=== PATIENT | male | born 1960 | race Caucasian/White ===

== ENCOUNTER 2017-01-22 14:22 | Inpatient (IN) | payer SELFPAY ==
[~2017-01-22] VITALS: Ht 182.9 cm; Wt 113.7 kg
[2017-01-22] VITALS (12 sets, daily range): BP systolic 93–157; BP diastolic 55–95; PULSE 77–162; RESP 16–22; TEMP 97.9–98.4; O2SAT 93–96
[~2017-01-22 14:22] MED LIST: ALBU0.086 INH; ATOR20TA42 PO; BENA25TA8 PO; CARD240C6 PO; CEPH500C3 PO; CHLO25 PO; CHLO25CA PO; DUONI INH; GEMF600T PO; GLYB1TAB51 PO; GUAI600 PO; Hydrochlorothiazide PO; LISI10 PO; LISI20 PO; MEDR4PAK3 PO; METF500 PO; PROT40TA PO; RANI150 PO; THIA100T PO; VENTAER INH
[2017-01-22] MEDS ORDERED: SODIUM CHLOR 0.9% 1000 ML INJ 1,000 ML IV SCH (14:34)
[2017-01-22] MEDS ORDERED: SODIUM CHLORIDE 0.9% FLUSH 10 ML FLUSH IVF PRN (14:45)
[2017-01-22] MEDS ORDERED: DILTIAZEM HCL 25 MG/5 ML VIAL IV PUSH ONE ×2 (14:45→16:00)
[2017-01-22] MEDS ORDERED: ASPIRIN 81 MG CHEW TAB PO ONE (14:45)
[2017-01-22 14:48] LABS: AUTOMATED NEUTROPHIL # 2.5 TH/MM3 (1.8-7.7); BASOPHIL % 0.9 % (0.0-2.0); EOSINOPHIL # 0.1 TH/MM3 (0-0.4); EOSINOPHIL % 1.7 % (0.0-4.0); HEMATOCRIT 49.6 % (39.0-51.0); HEMO FLAGS DIFF FINAL; LYMPH % 40.9 % (9.0-44.0); LYMPHOCYTE # 2.1 TH/MM3 (1.0-4.8); MEAN CORPUSCULAR HEMOGLOBIN 31.2 PG (27.0-34.0); MEAN CORPUSCULAR HGB CONC 35.1 % (32.0-36.0); MONO % 7.7 % (0.0-8.0); NEUT % 48.8 % (16.0-70.0); PLATELET COUNT 126 TH/MM3 (150-450); RED BLOOD COUNT 5.57 MIL/MM3 (4.50-5.90); RED CELL DISTRIBUTION WIDTH 15.5 % (11.6-17.2); WHITE BLOOD COUNT 5.2 TH/MM3 (4.0-11.0)
--- NOTE | 2017-01-22 14:48 | PD ---
HPI Chief Complaint: Chest Pain Time Seen by Provider: 14:38 Travel History International Travel<30 days: No Contact w/Intl Traveler<30days: No Traveled to known affect area: No History of Present Illness HPI This is a 56-year-old male with history of COPD, diabetes, hypertension, sleep apnea, alcohol abuse, tobacco use, admitted in 2013 with new onset A. fib which was felt to be secondary to heavy alcohol use. He presents via EMS for evaluation. For the past week he has had intermittent substernal chest pain which she describes as a squeezing sensation with no obvious aggravating or alleviating factors. He endorses a cough with yellow sputum production, palpitations. EMS reports heart rhythm of atrial fibrillation with a rate between 130 and 160. He endorses heavy alcohol use on a daily basis, approximately 8 beers daily, 8 beers today. The patient has been noncompliant with all of his previously prescribed medications and has not used any prescribed medication in over a year. He does not currently have a primary care physician. In addition the patient is having some epigastric discomfort and chills. He denies any dyspnea, calf swelling, recent travel. He has no other complaints at this time. PFSH Past Medical History Hx Anticoagulant Therapy: No Arthritis: No Asthma: No Atrial Fibrillation: Yes (PER EMR) Autoimmune Disease: No Blood Disorders: No Anxiety: No Depression: No Heart Rhythm Problems: Yes Cancer: No Cardiovascular Problems: Yes High Cholesterol: No Chemotherapy: No Chest Pain: No Congestive Heart Failure: No COPD: Yes Cerebrovascular Accident: No Diabetes: Yes Patient Takes Glucophage: No Diminished Hearing: No Endocrine: No Gastrointestinal Disorders: Yes GERD: No Glaucoma: No Genitourinary: No Headaches: No Hepatitis: No Hiatal Hernia: No Hypertension: Yes Immune Disorder: No Kidney Stones: No Musculoskeletal: No Neurologic: No Psychiatric: No Reproductive: No Respiratory: Yes (COPD) Immunizations Current: Yes Migraines: No Myocardial Infarction: No Radiation Therapy: No Renal Failure: No Seizures: No Sickle Cell Disease: No Sleep Apnea: Yes (uses CPAP at night) Thyroid Disease: No Ulcer: No Tetanus Vaccination: < 5 Years Influenza Vaccination: No Past Surgical History Abdominal Surgery: Yes (UMBILICAL HERNIA) AICD: No Appendectomy: Yes Arteriovenous Shunt: No Cardiac Surgery: No Cholecystectomy: No Ear Surgery: No Endocrine Surgery: No Eye Surgery: No Genitourinary Surgery: No Hysterectomy: No Insulin Pump: No Joint Replacement: No Oral Surgery: No Pacemaker: No Thoracic Surgery: No Other Surgery: Yes (REPAIR SPLEEN) Social History Alcohol Use: No (12+ BEERS DAILY X 38 YEARS ) Tobacco Use: Yes (1PPD CIGARETTES SINCE AGE OF 13) Substance Use: No Allergies-Medications (Allergen,Severity, Reaction): Coded Allergies: No Known Allergies (Verified , 01/22/17) Reported Meds & Prescriptions Reported Meds & Active Scripts Active No Active Prescriptions or Reported Medications Review of Systems Except as stated in HPI: all other systems reviewed are Neg Physical Exam Narrative GENERAL: Disheveled-appearing male who is in no acute distress. Heart rate is 126 SKIN: Warm, diaphoretic HEAD: Atraumatic. Normocephalic. EYES: Pupils equal and round. No scleral icterus. No injection or drainage. ENT: No nasal bleeding or discharge. Mucous membranes pink and moist. NECK: Trachea midline. No JVD. CARDIOVASCULAR: Irregular rate and rhythm. No murmur appreciated. RESPIRATORY: No accessory muscle use. Coarse breath sounds bilaterally. GASTROINTESTINAL: Abdomen soft, non-tender, nondistended. Hepatic and splenic margins not palpable. MUSCULOSKELETAL: No obvious deformities. No edema. NEUROLOGICAL: Awake and alert. No obvious cranial nerve deficits. Motor grossly within normal limits. Normal speech. PSYCHIATRIC: Appropriate mood and affect; insight and judgment normal. Data Data Last Documented VS Vital Signs Date Time Temp Pulse Resp B/P (MAP) Pulse Ox O2 Delivery O2 Flow Rate FiO2 01/22/17 15:40 121 22 128/75 (92) 93 Nasal Cannula 2.00 01/22/17 14:25 97.9 Orders Orders Complete Blood Count With Diff (01/22/17 14:34) Comprehensive Metabolic Panel (01/22/17 14:34) Lipase (01/22/17 14:34) Prothrombin Time / Inr (Pt) (01/22/17 14:34) Act Partial Throm Time (Ptt) (01/22/17 14:34) Electrocardiogram (01/22/17 14:34) Ckmb (Isoenzyme) Profile (01/22/17 14:34) Magnesium (Mg) (01/22/17 14:34) Troponin I (01/22/17 14:34) Chest, Single Ap (01/22/17 14:34) Ecg Monitoring (01/22/17 14:34) Bilateral Bp Monitoring (01/22/17 14:34) Iv Access Insert/Monitor (01/22/17 14:34) Oximetry (01/22/17 14:34) Oxygen Administration (01/22/17 14:34) Aspirin Chew (Aspirin Chew) (01/22/17 14:45) Sodium Chloride 0.9% Flush (Ns Flush) (01/22/17 14:45) Sodium Chlor 0.9% 1000 Ml Inj (Ns 1000 M (01/22/17 14:34) Diltiazem Inj (Cardizem Inj) (01/22/17 14:45) CKMB (01/22/17 14:35) CKMB% (01/22/17 14:35) Diltiazem Inj (Cardizem Inj) (01/22/17 15:45) Insulin Human Regular Inj (Novolin R Inj (01/22/17 15:30) Diltiazem Inj (Cardizem Inj) (01/22/17 16:00) Methylprednisolone So Succ Inj (Solumedr (01/22/17 15:45) Albuterol-Ipratropium Neb (Duoneb Neb) (01/22/17 15:45) Azithromycin Inj (Zithromax Inj) (01/22/17 15:45) Admit Order (Ed Use Only) (01/22/17 16:11) Albuterol-Ipratropium Neb (Duoneb Neb) (01/22/17 22:00) Albuterol Neb (Albuterol Neb) (01/22/17 16:15) Methylprednisolone So Succ Inj (Solumedr (01/22/17 16:15) Copd Educator Consult (01/22/17 ) Admit To Inpatient (01/22/17 ) Vital Signs (Adult) Q4H (01/22/17 16:11) Activity Oob Ad Gabby (01/22/17 16:11) Bedside Glucose RUBI.CSUGAR (01/22/17 16:11) Apprentice Photographer / Telemetry .CONTINUOUS (01/22/17 16:11) Intake + Output RUBI.QSHIFT (01/22/17 16:11) Notify Dr: Other (01/22/17 16:11) Diet 1800 Ada Cons Carb (01/22/17 Dinner) Diet Heart Healthy (01/22/17 Dinner) Sodium Chloride 0.9% Flush (Ns Flush) (01/22/17 16:15) Sodium Chloride 0.9% Flush (Ns Flush) (01/22/17 21:00) Acetaminophen (Tylenol) (01/22/17 16:15) Ondansetron Inj (Zofran Inj) (01/22/17 16:15) Creatine Kinase (Cpk) (01/22/17 16:11) Creatine Kinase (Cpk) (01/22/17 22:11) Troponin I (01/22/17 16:11) Troponin I (01/22/17 22:11) Lipase (01/23/17 06:00) Hepatic Functional Panel (01/23/17 06:00) Resp Oxygen Stephon C Titrat 1-4 L (01/22/17 ) Case Management Consult (01/22/17 16:11) Heparin Inj (Heparin Inj) (01/22/17 16:15) Scd Bilateral/Knee High RUBI.BID (01/22/17 16:11) Naloxone Inj (Narcan Inj) (01/22/17 16:15) Docusate Sodium-Senna (Kami-Colace) (01/22/17 21:00) Magnesium Hydroxide Liq (Milk Of Magnesi (01/22/17 16:15) Sennosides (Senokot) (01/22/17 16:15) Bisacodyl Supp (Dulcolax Supp) (01/22/17 16:15) Inpatient Certification (01/22/17 ) Sodium Chlor 0.9% 1000 Ml Inj (Ns 1000 M (01/22/17 16:30) Azithromycin Inj (Zithromax Inj) (01/22/17 16:30) Labs Laboratory Tests Test 01/22/17 14:35 White Blood Count 5.2 TH/MM3 Red Blood Count 5.57 MIL/MM3 Hemoglobin 17.4 GM/DL Hematocrit 49.6 % Mean Corpuscular Volume 89.0 FL Mean Corpuscular Hemoglobin 31.2 PG Mean Corpuscular Hemoglobin Concent 35.1 % Red Cell Distribution Width 15.5 % Platelet Count 126 TH/MM3 Mean Platelet Volume 7.5 FL Neutrophils (%) (Auto) 48.8 % Lymphocytes (%) (Auto) 40.9 % Monocytes (%) (Auto) 7.7 % Eosinophils (%) (Auto) 1.7 % Basophils (%) (Auto) 0.9 % Neutrophils # (Auto) 2.5 TH/MM3 Lymphocytes # (Auto) 2.1 TH/MM3 Monocytes # (Auto) 0.4 TH/MM3 Eosinophils # (Auto) 0.1 TH/MM3 Basophils # (Auto) 0.0 TH/MM3 CBC Comment DIFF FINAL Differential Comment Prothrombin Time 11.8 SEC Prothromb Time International Ratio 1.1 RATIO Activated Partial Thromboplast Time 27.2 SEC Blood Urea Nitrogen 5 MG/DL Creatinine 0.94 MG/DL Random Glucose 359 MG/DL Total Protein 7.0 GM/DL Albumin 3.4 GM/DL Calcium Level 7.9 MG/DL Magnesium Level 2.1 MG/DL Alkaline Phosphatase 124 U/L Aspartate Amino Transf (AST/SGOT) 157 U/L Alanine Aminotransferase (ALT/SGPT) 133 U/L Total Bilirubin 0.8 MG/DL Sodium Level 134 MEQ/L Potassium Level 3.5 MEQ/L Chloride Level 97 MEQ/L Carbon Dioxide Level 25.2 MEQ/L Anion Gap 12 MEQ/L Estimat Glomerular Filtration Rate 83 ML/MIN Total Creatine Kinase 168 U/L Creatine Kinase MB 2.7 NG/ML Troponin I 0.02 NG/ML Lipase 453 U/L MDM Medical Decision Making Medical Screen Exam Complete: Yes Emergency Medical Condition: Yes Medical Record Reviewed: Yes Differential Diagnosis Paroxysmal atrial fibrillation, acute coronary syndrome, unstable angina, COPD exacerbation, pneumonia Narrative Course The patient was placed on ECG monitoring pulse oximetry. A 12-lead EKG was obtained. Plan is for basic lab work, chest x-ray. The patient was given a full dose aspirin, 1 L normal saline bolus, Cardizem bolus 0.25 mg/kg. Blood work notable for elevated AST and ALT, lipase 453, glucose 359, 6 unit insulin bolus administered. Chest x-ray reveals no acute abnormalities. After the initial bolus of Cardizem is heart rate improved to between 100-120 but was still rapid therefore 0.35 mg/kg bolus was initiated. The patient is wheezing with coarse breath sounds, oxygen saturation around 93% and therefore after the administration of Cardizem, fluids and insulin the patient was given Solu-Medrol , DuoNeb therapy and azithromycin. The plan is to admit the patient for further evaluation and treatment. Diagnosis Primary Impression: Atrial fibrillation with RVR Additional Impressions: COPD exacerbation Chest pain Qualified Codes: R07.9 - Chest pain, unspecified Pancreatitis Qualified Codes: K85.20 - Alcohol induced acute pancreatitis without necrosis or infection Alcoholism Admitting Information Admitting Physician Requests: Admit Scripts No Active Prescriptions or Reported Meds Chris Rebollar Jan 22, 2017 14:48
[2017-01-22 15:05] LABS: ALT (GPT) 133 U/L (12-78); ANION GAP 12 MEQ/L (5-15); AST (GOT) 157 U/L (15-37); BICARBONATE 25.2 MEQ/L (21.0-32.0); BLOOD UREA NITROGEN 5 MG/DL (7-18); CHLORIDE 97 MEQ/L (98-107); GLOMERULAR FILTRATION RATE 83 ML/MIN (>89); MAGNESIUM 2.1 MG/DL (1.5-2.5); POTASSIUM 3.5 MEQ/L (3.5-5.1); SODIUM (NA) 134 MEQ/L (136-145)
[2017-01-22 15:09] LABS: ALKALINE PHOSPHATASE 124 U/L (45-117); CREATINE KINASE 168 U/L (39-308); TOTAL BILIRUBIN ADULT 0.8 MG/DL (0.2-1.0)
[2017-01-22 15:13] LABS: APTT (PATIENT) 27.2 SEC (24.3-30.1); INTERNATIONAL NORMALIZED RATIO 1.1 RATIO; PROTHROMBIN TIME - PATIENT 11.8 SEC (9.8-11.6)
[2017-01-22 15:21] LABS: CKMB 2.7 NG/ML (0.5-3.6)
--- NOTE | 2017-01-22 15:27 | RADRPT ---
EXAM DATE/TIME: 01/22/2017 14:59 [facility] COMPARISON: CHEST SINGLE AP, December 23, 2014, 19:27. INDICATIONS : Chest pain. MEDICAL HISTORY : Chronic obstructive pulmonary disease. SURGICAL HISTORY : None. ENCOUNTER: Initial ACUITY: 1 day PAIN SCORE: 7/10 LOCATION: Chest, midline. FINDINGS: A single view of the chest demonstrates the lungs to be symmetrically aerated without evidence of mas s, infiltrate or effusion. The cardiomediastinal contours are unremarkable. Osseous structures are intact. CONCLUSION: No acute disease. Doe Mendenhall MD on January 22, 2017 at 15:25 Board Certified Radiologist. This report was verified electronically.
[2017-01-22] MEDS ORDERED: INSULIN HUMAN REGULAR 1,000 UNITS/10 ML VIAL IV PUSH ONE (15:30)
[2017-01-22] MEDS ORDERED: RESP: ALBUTEROL 2.5 MG/IPRATROPIUM 0.5 MG NEB (SCH) INH ONE (15:45)
[2017-01-22] MEDS ORDERED: DILTIAZEM HCL 50 MG/10 ML VIAL IV PUSH ONE (15:45)
[2017-01-22] MEDS ORDERED: AZITHROMYCIN INJ 500 MG in SODIUM CHLOR 0.9% 250 ML INJ 250 ML IV ONE (15:45)
[2017-01-22] MEDS ORDERED: methylPREDNISolone SOD SUCC 125 MG/2 ML VIAL IV PUSH ONE (15:45)
[2017-01-22] MEDS ORDERED: RESP: ALBUTEROL 2.5 MG/3 ML NEB (PRN) INH (16:15)
[2017-01-22] MEDS ORDERED: SODIUM CHLORIDE 0.9% FLUSH 10 ML FLUSH IV FLUSH PRN ×2 (16:15→17:00)
[2017-01-22] MEDS ORDERED: ONDANSETRON HCL 4 MG/2 ML VIAL IVP PRN (16:15)
[2017-01-22] MEDS ORDERED: SENNOSIDES 8.6 MG TAB PO PRN (16:15)
[2017-01-22] MEDS ORDERED: MAGNESIUM HYDROXIDE SUSP 30 ML CUP PO PRN (16:15)
[2017-01-22] MEDS ORDERED: NALOXONE HCL 0.4 MG/ML AMP IV PUSH PRN (16:15)
[2017-01-22] MEDS ORDERED: BISACODYL 10 MG SUPP RECTAL PRN (16:15)
--- NOTE | 2017-01-22 16:41 | HHI.HP ---
HPI Service [facility] ([place], [place])ists Primary Care Physician Unknown Admission Diagnosis atrial fibrillation with RVR, chest pain, COPD exac, pancreatitis Diagnoses: Chief Complaint: increasing SOB, Chest Pain Travel History International Travel<30 Days: No Contact w/Intl Traveler <30 Da: No Traveled to Known Affected Are: No History of Present Illness Written by Nir Deras, acting as scribe for Dr. Duque on 01/22/17 at 16:41. Patient is a 56-year-old male with primary medical history of HTN, COPD, tobacco abuse, alcohol abuse, alcoholic liver disease, obstructive sleep apnea, DM 2, A. fib who came in to hospital with complaints of chest pain midsternum "like a tennis ball on my chest" associated with sweating, not feeling too well , "pain is up there." Patient also states that he has increasing shortness of breath 2 weeks and 8/worsening. In addition, he also complained of abdominal pain mid abdomen region radiating to the back, unable to describe, and able to know what aggravates or relieves the pain. States he has been coughing, expectorating yellow colored sputum. States he has been feeling hot, feverish, does not know real temperature. States he needs to be in front of the fan for almost all the time. Patient states he is not taking any medications or any prescribed medication. Reports drinking to 4 packs of her today and has been drinking 2-4 packs every day. Otherwise, denies headaches, dizziness. Denies fevers, chills, n/v/d. Denies dysuria. Review of Systems Constitutional: COMPLAINS OF: Fever Endocrine: COMPLAINS OF: Heat/cold intolerance Ears, nose, mouth, throat: DENIES: Tinnitus, Ear Pain Respiratory: COMPLAINS OF: Cough, Snoring, Sputum production, Shortness of breath, DENIES: Hemoptysis Cardiovascular: COMPLAINS OF: Chest pain, Dyspnea on Exertion, Lower Extremity Edema, Orthopnea Gastrointestinal: COMPLAINS OF: Abdominal pain, DENIES: Bloody stools, Constipation, Diarrhea, Nausea, Vomiting, Difficulty Swallowing Neurologic: DENIES: Speech Problems Psychiatric: DENIES: Hallucinations Except as stated in HPI: all other systems reviewed are Neg Past Family Social History Past Medical History HTN COPD EtOH abuse Tobacco abuse RJ DM 2 A. 2013 Past Surgical History Appendectomy Hernia repair Reported Medications None Allergies: Coded Allergies: No Known Allergies (Verified , 01/22/17) Active Ordered Medications Current Medications Medications (Trade) Dose Ordered Sig/Nedra Route Start Time Stop Time Status Last Admin (NS Flush) 2 ml UNSCH PRN IVF 01/22/17 14:45 Azithromycin 500 mg/Sodium Chloride 250 ml @ 250 mls/hr ONCE ONCE IV 01/22/17 15:45 01/22/17 16:44 01/22/17 15:53 (Duoneb Neb) 1 ampule Q6HR NEB INH 01/22/17 22:00 (Albuterol Neb) 2.5 mg Q2HR NEB PRN INH 01/22/17 16:15 (SoluMEDROL INJ) 40 mg Q8H IVP 01/22/17 17:00 (NS Flush) 2 ml UNSCH PRN IV FLUSH 01/22/17 16:15 (NS Flush) 2 ml BID IV FLUSH 01/22/17 21:00 (Tylenol) 650 mg Q4H PRN PO 01/22/17 16:15 (Zofran Inj) 4 mg Q6H PRN IVP 01/22/17 16:15 (Heparin Inj) 5,000 units Q12H SQ 01/22/17 17:00 (Narcan Inj) 0.4 mg UNSCH PRN IV PUSH 01/22/17 16:15 (Kami-Colace) 1 tab BID PO 01/22/17 21:00 (Milk Of Magnesia Liq) 30 ml Q12H PRN PO 01/22/17 16:15 (Senokot) 17.2 mg Q12H PRN PO 01/22/17 16:15 (Dulcolax Supp) 10 mg DAILY PRN RECTAL 01/22/17 16:15 Sodium Chloride 1,000 ml @ 84 mls/hr [id number] IV 01/22/17 16:30 UNV Azithromycin 500 mg/Sodium Chloride 250 ml @ 250 mls/hr Q24H IV 01/22/17 16:30 UNV Family History Father had a pacemaker Social History Reports alcohol use daily 2-4 packs per day Current day smoker 1 pack per day for more than 45 years History of cocaine use Physical Exam Vital Signs Vital Signs Date Time Temp Pulse Resp B/P (MAP) Pulse Ox O2 Delivery O2 Flow Rate FiO2 01/22/17 15:40 121 22 128/75 (92) 93 Nasal Cannula 2.00 01/22/17 14:51 88 20 93/55 (68) 94 Nasal Cannula 2.00 01/22/17 14:49 94 Nasal Cannula 2.00 01/22/17 14:35 162 20 104/57 (73) 93 Nasal Cannula 2.00 01/22/17 14:33 124 20 122/92 (102) 94 Room Air 01/22/17 14:31 126 18 96 Room Air 01/22/17 14:25 97.9 140 20 136/90 (105) 96 Physical Exam GENERAL: This is an obese, well-developed patient, short of breath. SKIN: Warm and dry. HEAD: Normocephalic. No temporal or scalp tenderness. EYES: Pupils equal round and reactive. Extraocular motions intact. No scleral icterus. No injection or drainage. ENT: Nose without bleeding. Throat without erythema. Uvula midline. Airway patent. NECK: Trachea midline. Supple. CARDIOVASCULAR: Irregularly irregular without murmurs, gallops, or rubs. RESPIRATORY: Diffuse wheezes, positive crackles. GASTROINTESTINAL: Abdomen soft, protuberant. Mid epigastric tenderness to palpation. Bowel sounds active 4. MUSCULOSKELETAL: Extremities without clubbing, cyanosis, trace bilateral lower extremities edema. NEUROLOGICAL: Awake and alert. Oriented to place, person, time. Motor and sensory grossly within normal limits. Normal speech. Laboratory Laboratory Tests Test 01/22/17 14:35 White Blood Count 5.2 Red Blood Count 5.57 Hemoglobin 17.4 Hematocrit 49.6 Mean Corpuscular Volume 89.0 Mean Corpuscular Hemoglobin 31.2 Mean Corpuscular Hemoglobin Concent 35.1 Red Cell Distribution Width 15.5 Platelet Count 126 Mean Platelet Volume 7.5 Neutrophils (%) (Auto) 48.8 Lymphocytes (%) (Auto) 40.9 Monocytes (%) (Auto) 7.7 Eosinophils (%) (Auto) 1.7 Basophils (%) (Auto) 0.9 Neutrophils # (Auto) 2.5 Lymphocytes # (Auto) 2.1 Monocytes # (Auto) 0.4 Eosinophils # (Auto) 0.1 Basophils # (Auto) 0.0 CBC Comment DIFF FINAL Differential Comment Prothrombin Time 11.8 Prothromb Time International Ratio 1.1 Activated Partial Thromboplast Time 27.2 Blood Urea Nitrogen 5 Creatinine 0.94 Random Glucose 359 Total Protein 7.0 Albumin 3.4 Calcium Level 7.9 Magnesium Level 2.1 Alkaline Phosphatase 124 Aspartate Amino Transf (AST/SGOT) 157 Alanine Aminotransferase (ALT/SGPT) 133 Total Bilirubin 0.8 Sodium Level 134 Potassium Level 3.5 Chloride Level 97 Carbon Dioxide Level 25.2 Anion Gap 12 Estimat Glomerular Filtration Rate 83 Total Creatine Kinase 168 Creatine Kinase MB 2.7 Troponin I 0.02 Lipase 453 Result Diagram: 01/22/17 1435 01/22/17 143 Imaging Last Impressions Chest X-Ray 01/22/17 143 Signed Impressions: Service Date/Time: Sunday, January 22, 2017 14:59 - CONCLUSION: No acute disease. MD Kimberli Workman VTE Risk Assessment Caprini VTE Risk Assessment: Mod/High Risk (score >= 2) Caprini Risk Assessment Model Point Value = 1 Point Value = 2 Point Value = 3 Point Value = 5 Age 41-60 Minor surgery BMI > 25 kg/m2 Swollen legs Varicose veins or History of unexplained or recurrent spontaneous Oral contraceptives or hormone replacement Sepsis (< 1 month) Serious lung disease, including pneumonia (< 1 month) Abnormal pulmonary function Acute myocardial infarction Congestive heart failure (< 1 month) History of inflammatory bowel disease Medical patient at bed rest Age 61-74 Arthroscopic surgery Major open surgery (> 45 min) Laparoscopic surgery (> 45 min) Malignancy Confined to bed (> 72 hours) Immobilizing plaster cast Central venous access Age >= 75 History of VTE Family history of VTE Factor V Leiden Prothrombin [id number] Lupus anticoagulant Anticardiolipin antibodies Elevated serum homocysteine Heparin-induced thrombocytopenia Other congenital or acquired thrombophilia Stroke (< 1 month) Elective arthroplasty Hip, pelvis, or leg fracture Acute spinal cord injury (< 1 month) Prophylaxis Regimen Total Risk Factor Score Risk Level Prophylaxis Regimen 0-1 Low Early ambulation 2 Moderate Order ONE of the following: *Sequential Compression Device (SCD) *Heparin 5000 units SQ BID 3-4 Higher Order ONE of the following medications: *Heparin 5000 units SQ TID *Enoxaparin/Lovenox 40 mg SQ daily (WT < 150 kg, CrCl > 30 mL/min) *Enoxaparin/Lovenox 30 mg SQ daily (WT < 150 kg, CrCl > 10-29 mL/min) *Enoxaparin/Lovenox 30 mg SQ BID (WT < 150 kg, CrCl > 30 mL/min) AND/OR *Sequential Compression Device (SCD) 5 or more Highest Order ONE of the following medications: *Heparin 5000 units SQ TID (Preferred with Epidurals) *Enoxaparin/Lovenox 40 mg SQ daily (WT < 150 kg, CrCl > 30 mL/min) *Enoxaparin/Lovenox 30 mg SQ daily (WT < 150 kg, CrCl > 10-29 mL/min) *Enoxaparin/Lovenox 30 mg SQ BID (WT < 150 kg, CrCl > 30 mL/min) AND *Sequential Compression Device (SCD) Assessment and Plan Problem List: (1) Atrial fibrillation with RVR ICD Code: I48.91 - Unspecified atrial fibrillation Status: Acute (2) COPD exacerbation ICD Code: J44.1 - Chronic obstructive pulmonary disease with (acute) exacerbation Status: Acute (3) Chest pain ICD Code: R07.9 - Chest pain, unspecified Status: Acute (4) Pancreatitis ICD Code: K85.90 - Acute pancreatitis without necrosis or infection, unspecified Status: Acute (5) Alcoholism ICD Code: F10.20 - Alcohol dependence, uncomplicated Status: Acute (6) History of diabetes mellitus ICD Code: Z86.39 - History of diabetes mellitus Status: Chronic (7) Alcohol intoxication ICD Code: F10.129 - Alcohol intoxication Status: Acute Assessment and Plan Patient is a 56-year-old male with primary medical history of HTN, COPD, tobacco abuse, alcohol abuse, alcoholic liver disease, obstructive sleep apnea, DM 2, ALyn fib who came in to hospital with complaints of chest pain midsternum "like a tennis ball on my chest" associated with sweating, not feeling too well , "pain is up there." Rule out ACS Chest pain - EKG reviewed by me Jv epps with rapid RVR - Serial troponin, serial CK Jv epps with RVR - Cardizem IV push 2 given in the ED - Start Cardizem drip, titrate to heart rate <90 - Diagnosed in 2013 with A. fib RVR, noncompliant and did not take medications prescribed. They discussed previously use of anticoagulants including Coumadin, Eliquis, Xarelto but the patient has not taken any of that medication. - [id number] -VASc risk 2 - HTN, DM COPD exacerbation - Solu-Medrol 125 is 1 dose now, Solu-Medrol 40 mg Q8hrs - Azithromycin IV - DuoNeb's scheduled, duo nebs when necessary - Monitor respiratory status Pancreatitis, acute - Lipase 453, complaints of abdominal pain mid epigastric region - IV Fluids - Nothing by mouth for now - Pain management EtOH abuse, acute on chronic Elevated LFTs - Counseled on alcohol abuse - [facility] protocol - Folic acid, thiamine, pantoprazole - Check hepatitis profile - Ultrasound of the liver - Follow-up labs in a.m. DM 2 , uncontrolled - elevated blood glucose 359 - Check hemoglobin A1c - Insulin sliding scale. Monitor Accu-Cheks. Monitor for hypoglycemia. Tobacco abuse - Counseled - Nicotine patch Noncompliance - Discuss with patient importance of compliance with medication. DVT prop heparin Code Status Full code Discussed Condition With Patient, nursing, ED attending This note was transcribed by scribgiana [ Nir Deras ]. I, Dr. Anne Duque personally performed the history, physical exam, and medical decision making; and confirmed the accuracy of the information in the transcribed note. Authenticated by Dr. Anne Duque on 01/22/17 at 16:41 Physician Certification 2 Midnight Certification Type: Admission for Inpatient Services Order for Inpatient Services The services are ordered in accordance with Medicare regulations or non- Medicare payer requirements, as applicable. In the case of services not specified as inpatient-only, they are appropriately provided as inpatient services in accordance with the 2-midnight benchmark. Estimated LOS (days): 3 days is the estimated time the patient will need to remain in the hospital, assuming treatment plan goals are met and no additional complications. Post-Hospital Plan: Not yet determined Problem Qualifiers (1) Chest pain: Qualified Codes: R07.9 - Chest pain, unspecified (2) Pancreatitis: Qualified Codes: K85.20 - Alcohol induced acute pancreatitis without necrosis or infection Nir Blackwood Jan 22, 2017 16:41 Anne Duque MD Jan 22, 2017 16:42
[2017-01-22] MEDS ORDERED: DEXTROSE 50% IN WATER 50 ML VIAL(D50) IV PUSH PRN (16:45)
[2017-01-22] MEDS ORDERED: GLUCAGON 1 MG/ML VIAL OTHER PRN (16:45)
[2017-01-22] MEDS: methylPREDNISolone SOD SUCC 125 MG/2 ML VIAL IVP SCH (16:45)
[2017-01-22] MEDS: AZITHROMYCIN INJ 500 MG in SODIUM CHLOR 0.9% 250 ML INJ 250 ML IV SCH (16:45)
[2017-01-22] MEDS: SODIUM CHLOR 0.9% 1000 ML INJ 1,000 ML IV SCH (16:47)
[2017-01-22] MEDS: HEPARIN SODIUM - SQ 10,000 UNITS/ML VIAL SQ SCH (16:49)
[2017-01-22] MEDS ORDERED: DILTIAZEM INJ 125 MG in SODIUM CHLORIDE 0.9% INJ 100 ML IV PRN (17:00)
[2017-01-22] MEDS ORDERED: niCARdipine INJ 25 MG in SODIUM CHLOR 0.9% 250 ML INJ 240 ML IV ONE (17:00)
[2017-01-22] MEDS ORDERED: FLUMAZENIL 0.5 MG/5 ML VIAL IV PUSH PRN (17:15)
[2017-01-22] MEDS ORDERED: LORazepam 2 MG/ML VIAL IV PUSH PRN ×3 (17:15)
[2017-01-22] MEDS ORDERED: LORazepam 2 MG TAB PO PRN (17:15)
--- NOTE | 2017-01-22 17:16 | RADRPT ---
EXAM DATE/TIME: 01/22/2017 16:42 [facility] COMPARISON: No previous studies available for comparison. INDICATIONS : Elevated lab values. MEDICAL HISTORY : Hypertension. Chronic obstructive pulmonary disease. Cardiac disorders. Irregular heartbeat. Atrial fibrillation. Sleep apnea. Dyspnea. Diabetes. Alcohol use. Tobacco use. SURGICAL HISTORY : Umbilical hernia repair. Appendectomy. Spleen repair. ENCOUNTER: Initial ACUITY: 1 month PAIN SCORE: 7/10 LOCATION: Bilateral upper quadrant MEASUREMENTS: LIVER: 16.4 cm length COMMON DUCT: 5 mm RIGHT KIDNEY: 13.0 x 5.9 x 6.2 cm SPLEEN: 10.2 cm length FINDINGS: LIVER: Diffuse increase in echogenicity may reflect fatty infiltration. No evidence of mass or biliary ducta l dilatation. COMMON DUCT: No intraluminal mass or stone visualized. GALLBLADDER: Dependent sludge PANCREAS: Obscured RIGHT KIDNEY: No hydronephrosis, stone or mass. SPLEEN: No focal lesion. CONCLUSION: Probable fatty liver. Gallbladder sludge. Doe Mendenhall MD on January 22, 2017 at 17:11 Board Certified Radiologist. This report was verified electronically.
[2017-01-22] MEDS: PANTOPRAZOLE SOD 40 MG DELAYED RELEASE TAB PO SCH (17:45)
[2017-01-22] MEDS: INSULIN ASPART SUPPLEMENTAL SCALE SQ SCH ×2 (17:45→21:00)
[2017-01-22] MEDS ORDERED: DILTIAZEM HCL 30 MG TAB PO SCH (18:00)
[2017-01-22] MEDS: RESP: ALBUTEROL 2.5 MG/IPRATROPIUM 0.5 MG NEB (SCH) INH (20:33)
[2017-01-22] MEDS ORDERED: SODIUM CHLORIDE 0.9% FLUSH 10 ML FLUSH IV FLUSH SCH (21:00)
[2017-01-22 21:39] LABS: CREATINE KINASE 135 U/L (39-308)
[2017-01-22] MEDS: DOCUSATE SODIUM 50 MG/SENNA 8.6 MG TAB PO SCH (21:51)
[2017-01-22] MEDS: SODIUM CHLORIDE 0.9% FLUSH 10 ML FLUSH IV FLUSH SCH (21:52)
[2017-01-22] MEDS: LORazepam 2 MG/ML VIAL IV PUSH PRN (22:00)
[2017-01-23] VITALS (26 sets, daily range): BP systolic 134–175; BP diastolic 76–107; PULSE 60–100; RESP 18–21; TEMP 97.2–98.2; O2SAT 93–98
[2017-01-23] MEDS: methylPREDNISolone SOD SUCC 125 MG/2 ML VIAL IVP SCH ×3 (01:00→17:00)
[2017-01-23] MEDS: LORazepam 2 MG/ML VIAL IV PUSH PRN ×2 (02:15→12:44)
[2017-01-23] MEDS: RESP: ALBUTEROL 2.5 MG/IPRATROPIUM 0.5 MG NEB (SCH) INH ×4 (03:29→19:46)
[2017-01-23] MEDS: HEPARIN SODIUM - SQ 10,000 UNITS/ML VIAL SQ SCH ×2 (04:50→17:30)
[2017-01-23] MEDS: SODIUM CHLOR 0.9% 1000 ML INJ 1,000 ML IV SCH ×2 (04:51→16:20)
--- NOTE | 2017-01-23 05:54 | EKG ---
Date Performed: 01/22/2017 Time Performed: 20:47:37 PTAGE: 56 years EKG: Sinus rhythm BORDERLINE LEFT AXIS DEVIATION BORDERLINE ECG NO PREVIOUS TRACING DOCTOR: Thanh Gil Interpretating Date/Time 01/23/2017 05:53:17
--- NOTE | 2017-01-23 06:02 | EKG ---
Date Performed: 01/22/2017 Time Performed: 14:32:16 PTAGE: 56 years EKG: ATRIAL FIBRILLATION WITH RAPID VENTRICULAR RESPONSE MARKED LEFT AXIS DEVIATION PATTERN CONS ISTENT WITH PULMONARY DISEASE ABNORMAL ECG INTERPRETATION BASED ON A DEFAULT AGE OF 40 YEARS PREVIOUS TRACING : 12/23/2014 20.32 DOCTOR: Thanh Gil Interpretating Date/Time 01/23/2017 05:58:11
[2017-01-23 06:31] LABS: CREATINE KINASE 119 U/L (39-308)
[2017-01-23 06:32] LABS: INDIRECT BILIRUBIN 0.4 MG/DL (0.0-0.8)
[2017-01-23] MEDS: DOCUSATE SODIUM 50 MG/SENNA 8.6 MG TAB PO SCH ×2 (08:11→20:56)
[2017-01-23] MEDS: FOLIC ACID 1 MG TAB PO SCH (08:11)
[2017-01-23] MEDS: THIAMINE HCL 100 MG TAB PO SCH (08:11)
[2017-01-23] MEDS: PANTOPRAZOLE SOD 40 MG DELAYED RELEASE TAB PO SCH (08:11)
[2017-01-23] MEDS: INSULIN ASPART SUPPLEMENTAL SCALE SQ SCH ×5 (08:12→21:48)
[2017-01-23] MEDS: SODIUM CHLORIDE 0.9% FLUSH 10 ML FLUSH IV FLUSH SCH ×2 (08:12→20:57)
[2017-01-23] MEDS ORDERED: INFLUENZA VIRUS VACCINE (QUADRIVALENT) 0.5 ML SYR IM ONE (09:00)
[2017-01-23] MEDS: LORazepam 1 MG TAB PO PRN ×2 (10:49→21:15)
--- NOTE | 2017-01-23 11:07 | HHI.PR ---
Subjective Remarks Patient sitting on the edge of the bed Still coughing and wheezing profusely , denied fever or chills, still on nasal cannula O2 Objective Vitals Vital Signs Date Time Temp Pulse Resp B/P (MAP) Pulse Ox O2 Delivery O2 Flow Rate FiO2 01/23/17 09:35 97 Nasal Cannula 3.00 01/23/17 06:06 74 01/23/17 05:15 83 01/23/17 04:16 78 01/23/17 03:25 98.1 86 21 134/76 (95) 93 01/23/17 03:15 69 01/23/17 02:00 90 01/23/17 01:20 76 01/23/17 00:23 89 01/22/17 23:31 98.4 81 18 157/95 (115) 94 01/22/17 23:00 77 01/22/17 22:25 91 01/22/17 21:40 98.3 91 20 147/83 (104) 93 01/22/17 21:22 01/22/17 21:10 80 16 121/65 (83) 94 Nasal Cannula 2.00 01/22/17 20:30 96 Nasal Cannula 3.00 01/22/17 17:46 124 20 114/68 (83) 94 Nasal Cannula 2.00 01/22/17 17:46 124 114/68 01/22/17 15:40 121 22 128/75 (92) 93 Nasal Cannula 2.00 01/22/17 14:51 88 20 93/55 (68) 94 Nasal Cannula 2.00 01/22/17 14:49 94 Nasal Cannula 2.00 01/22/17 14:35 162 20 104/57 (73) 93 Nasal Cannula 2.00 01/22/17 14:33 124 20 122/92 (102) 94 Room Air 01/22/17 14:31 126 18 96 Room Air 01/22/17 14:25 97.9 140 20 136/90 (105) 96 I/O 01/22/17 01/22/17 01/22/17 01/23/17 01/23/17 01/23/17 07:00 15:00 23:00 07:00 15:00 23:00 Intake Total 1250 ml 1591 ml Output Total 2050 ml Balance 1250 ml -459 ml Intake Oral 1591 ml IV Total 1250 ml Output Urine Total 2050 ml Result Diagram: 01/22/17 1435 01/22/17 1435 Objective Remarks GENERAL: This is an obese, well-developed patient, short of breath. SKIN: Warm and dry. HEAD: Normocephalic. No temporal or scalp tenderness. EYES: Pupils equal round and reactive. Extraocular motions intact. No scleral icterus. No injection or drainage. ENT: Nose without bleeding. Throat without erythema. Uvula midline. Airway patent. NECK: Trachea midline. Supple. CARDIOVASCULAR: Irregularly irregular without murmurs, gallops, or rubs. RESPIRATORY: Diffuse wheezes, positive crackles. GASTROINTESTINAL: Abdomen soft, protuberant. Mid epigastric tenderness to palpation. Bowel sounds active 4. MUSCULOSKELETAL: Extremities without clubbing, cyanosis, trace bilateral lower extremities edema. NEUROLOGICAL: Awake and alert. Oriented to place, person, time. Motor and sensory grossly within normal limits. Normal speech. A/P Problem List: (1) Atrial fibrillation with RVR ICD Code: I48.91 - Unspecified atrial fibrillation Status: Acute (2) COPD exacerbation ICD Code: J44.1 - Chronic obstructive pulmonary disease with (acute) exacerbation Status: Acute (3) Chest pain ICD Code: R07.9 - Chest pain, unspecified Status: Acute (4) Pancreatitis ICD Code: K85.90 - Acute pancreatitis without necrosis or infection, unspecified Status: Acute (5) Alcoholism ICD Code: F10.20 - Alcohol dependence, uncomplicated Status: Acute (6) History of diabetes mellitus ICD Code: Z86.39 - History of diabetes mellitus Status: Chronic (7) Alcohol intoxication ICD Code: F10.129 - Alcohol intoxication Status: Acute Assessment and Plan 01/23: Likely is normalized, AST ALT alkaline phosphatase trending up, continue O2 Solu-Medrol, DuoNeb, Cardizem drip titration started on by mouth Uncontrolled DM EEG 500: We'll place on Levemir 10 units twice a day, will give 19 units NovoLog and upgrade ISS to medium level with Accu-Chek every 3 hours A/P: Patient is a 56-year-old male with primary medical history of HTN, COPD, tobacco abuse, alcohol abuse, alcoholic liver disease, obstructive sleep apnea, DM 2, A. fib who came in to hospital with complaints of chest pain midsternum "like a tennis ball on my chest" associated with sweating, not feeling too well , "pain is up there." Rule out ACS Chest pain - EKG reviewed by me A. fib with rapid RVR - Serial troponin, serial CK A. fib with RVR - Cardizem IV push 2 given in the ED -Continue titrating Cardizem drip until shutting off, will start Cardizem by mouth 30 mg 4 times a day first dose now - Diagnosed in 2013 with A. fib RVR, noncompliant and did not take medications prescribed. They discussed previously use of anticoagulants including Coumadin, Eliquis, Xarelto but the patient has not taken any of that medication. - [id number] -VASc risk 2 - HTN, DM COPD exacerbation - Solu-Medrol 125 is 1 dose now, Solu-Medrol 40 mg Q8hrs - Azithromycin IV - DuoNeb's scheduled, duo nebs when necessary - Monitor respiratory status Pancreatitis, acute - Lipase 453 dropped to 157, still having mild abdominal pain mid epigastric region - IV Fluids - Nothing by mouth for now - Pain management EtOH abuse, acute on chronic Elevated LFTs, AST ALT and alkaline phosphatase trending up - Counseled on alcohol abuse - [facility] protocol - Folic acid, thiamine, pantoprazole - Check hepatitis profile - Ultrasound of the liver -CMP in a.m. DM 2 , uncontrolled - hemoglobin A1c P - Insulin sliding scale medium level. Monitor Accu-Cheks. Add Levemir 10 units twice a day Tobacco abuse - Counseled - Nicotine patch Noncompliance - Discuss with patient importance of compliance with medication. DVT prop heparin Problem Qualifiers (1) Chest pain: Qualified Codes: R07.9 - Chest pain, unspecified (2) Pancreatitis: Qualified Codes: K85.20 - Alcohol induced acute pancreatitis without necrosis or infection Anne Duque MD Jan 23, 2017 11:07
[2017-01-23 11:59] LABS: HEMOGLOBIN A1a 1.6 %; HEMOGLOBIN Ao 74.4 %; HEMOGLOBIN LA1C 3.6 %; HEMOGLOBIN P3 5.4 %
[2017-01-23] MEDS: DILTIAZEM HCL 30 MG TAB PO SCH ×3 (12:38→20:56)
[2017-01-23] MEDS ORDERED: INSULIN ASPART 1,000 UNITS/10 ML VIAL SQ ONE ×2 (15:30→18:15)
[2017-01-23] MEDS: AZITHROMYCIN INJ 500 MG in SODIUM CHLOR 0.9% 250 ML INJ 250 ML IV SCH (17:29)
[2017-01-23] MEDS: INSULIN DETEMIR 100 UNITS/ML VIAL SQ SCH ×2 (17:29→20:57)
[2017-01-23] MEDS ORDERED: INSULIN DETEMIR 100 UNITS/ML VIAL SQ SCH (21:00)
[2017-01-24] VITALS (23 sets, daily range): BP systolic 147–181; BP diastolic 84–114; PULSE 62–110; RESP 18–23; TEMP 96.9–98.1; O2SAT 92–98
[2017-01-24] MEDS ORDERED: INSULIN HUMAN REGULAR 1,000 UNITS/10 ML VIAL IV PUSH ONE (00:30)
[2017-01-24] MEDS: methylPREDNISolone SOD SUCC 125 MG/2 ML VIAL IVP SCH ×3 (00:38→18:04)
[2017-01-24] MEDS: ACETAMINOPHEN 325 MG TAB PO PRN (01:47)
[2017-01-24] MEDS: RESP: ALBUTEROL 2.5 MG/IPRATROPIUM 0.5 MG NEB (SCH) INH ×4 (03:23→23:35)
[2017-01-24] MEDS: INSULIN ASPART SUPPLEMENTAL SCALE SQ SCH ×4 (04:00→12:14)
[2017-01-24] MEDS: HEPARIN SODIUM - SQ 10,000 UNITS/ML VIAL SQ SCH ×2 (04:38→18:04)
[2017-01-24] MEDS: ENALAPRILAT 1.25 MG/ML VIAL IV PUSH PRN (04:38)
[2017-01-24] MEDS: INSULIN DETEMIR 100 UNITS/ML VIAL SQ SCH (08:08)
[2017-01-24] MEDS: DILTIAZEM HCL 30 MG TAB PO SCH ×4 (08:09→20:27)
[2017-01-24] MEDS: DOCUSATE SODIUM 50 MG/SENNA 8.6 MG TAB PO SCH ×2 (08:09→20:28)
[2017-01-24] MEDS: PANTOPRAZOLE SOD 40 MG DELAYED RELEASE TAB PO SCH (08:09)
[2017-01-24] MEDS: LORazepam 1 MG TAB PO PRN ×3 (08:09→18:06)
[2017-01-24] MEDS: SODIUM CHLORIDE 0.9% FLUSH 10 ML FLUSH IV FLUSH SCH ×2 (08:09→20:27)
[2017-01-24] MEDS: FOLIC ACID 1 MG TAB PO SCH (08:09)
[2017-01-24] MEDS: THIAMINE HCL 100 MG TAB PO SCH (08:09)
[2017-01-24] MEDS ORDERED: INSULIN ASPART 1,000 UNITS/10 ML VIAL SQ ONE (12:15)
--- NOTE | 2017-01-24 12:18 | HHI.PR ---
Subjective Remarks Sitting on the edge of the bed He is off oxygen today Still wheezing profusely, along with cough No fever or chills Difficulty controlling his sugar Objective Vitals Vital Signs Date Time Temp Pulse Resp B/P (MAP) Pulse Ox O2 Delivery O2 Flow Rate FiO2 01/24/17 12:09 91 01/24/17 12:08 97.9 91 22 147/87 (107) 92 01/24/17 11:00 62 01/24/17 10:08 91 01/24/17 09:27 147/100 (116) 01/24/17 09:00 110 01/24/17 08:36 98 01/24/17 08:00 103 01/24/17 08:00 97.9 103 22 181/114 (136) 94 01/24/17 07:06 74 01/24/17 06:00 69 01/24/17 05:00 64 01/24/17 04:00 62 01/24/17 03:00 96.9 63 18 155/108 (124) 94 01/24/17 03:00 72 01/24/17 02:00 62 01/24/17 01:00 70 01/24/17 00:00 66 01/23/17 23:00 97.2 74 18 142/82 (102) 93 01/23/17 23:00 68 01/23/17 22:00 75 01/23/17 21:00 81 01/23/17 20:00 100 01/23/17 19:47 98 21 01/23/17 19:00 97.3 84 18 163/102 (122) 96 01/23/17 19:00 84 01/23/17 18:02 94 01/23/17 17:36 83 01/23/17 16:13 70 01/23/17 15:00 98.2 83 20 161/107 (125) 95 01/23/17 15:00 95 01/23/17 14:14 60 01/23/17 14:00 83 161/107 01/23/17 13:15 83 I/O 01/23/17 01/23/17 01/23/17 01/24/17 01/24/17 01/24/17 07:00 15:00 23:00 07:00 15:00 23:00 Intake Total 1591 ml 35 ml 3667 ml 720 ml Output Total 2050 ml 5075 ml 1650 ml Balance -459 ml 35 ml -1408 ml -930 ml Intake Oral 1591 ml 2120 ml 720 ml IV Total 35 ml 1547 ml Output Urine Total 2050 ml 5075 ml 1650 ml # Bowel Movements 0 1 Result Diagram: 01/22/17 1435 01/22/17 1435 Objective Remarks GENERAL: This is an obese, well-developed patient, short of breath. SKIN: Warm and dry. HEAD: Normocephalic. No temporal or scalp tenderness. EYES: Pupils equal round and reactive. Extraocular motions intact. No scleral icterus. No injection or drainage. ENT: Nose without bleeding. Throat without erythema. Uvula midline. Airway patent. NECK: Trachea midline. Supple. CARDIOVASCULAR: Irregularly irregular without murmurs, gallops, or rubs. RESPIRATORY: Diffuse wheezes, positive crackles. GASTROINTESTINAL: Abdomen soft, protuberant. Mid epigastric tenderness to palpation. Bowel sounds active 4. MUSCULOSKELETAL: Extremities without clubbing, cyanosis, trace bilateral lower extremities edema. NEUROLOGICAL: Awake and alert. Oriented to place, person, time. Motor and sensory grossly within normal limits. Normal speech. A/P Problem List: (1) Atrial fibrillation with RVR ICD Code: I48.91 - Unspecified atrial fibrillation Status: Acute (2) COPD exacerbation ICD Code: J44.1 - Chronic obstructive pulmonary disease with (acute) exacerbation Status: Acute (3) Chest pain ICD Code: R07.9 - Chest pain, unspecified Status: Acute (4) Pancreatitis ICD Code: K85.90 - Acute pancreatitis without necrosis or infection, unspecified Status: Acute (5) Alcoholism ICD Code: F10.20 - Alcohol dependence, uncomplicated Status: Acute (6) History of diabetes mellitus ICD Code: Z86.39 - History of diabetes mellitus Status: Chronic (7) Alcohol intoxication ICD Code: F10.129 - Alcohol intoxication Status: Acute Assessment and Plan 01/23: Likely is normalized, AST ALT alkaline phosphatase trending up, continue O2 Solu-Medrol, DuoNeb, Cardizem drip titration started on by mouth Uncontrolled DM EEG 500: We'll place on Levemir 10 units twice a day, will give 19 units NovoLog and upgrade ISS to medium level with Accu-Chek every 3 hours 01/24: A1c 11.9, liver ultrasound showed fatty liver with gallbladder sludge, continue with tapering Solu-Medrol. Further adjusting insulin for blood sugar control PEG 192 this morning and increase to 500, will increase Levemir Addendum: Received a call from the nurse blood sugar is still 579 despite giving 20 units of NovoLog and basal insulin in the morning, it has been 500 over 2 readings, will start insulin drip patient will need to go to ICU regular BG checked A/P: Patient is a 56-year-old male with primary medical history of HTN, COPD, tobacco abuse, alcohol abuse, alcoholic liver disease, obstructive sleep apnea, DM 2, A. fib who came in to hospital with complaints of chest pain midsternum "like a tennis ball on my chest" associated with sweating, not feeling too well , "pain is up there." Rule out ACS Chest pain - EKG reviewed by me A. fib with rapid RVR - Serial troponin, serial CK A. fib with RVR - Cardizem IV push 2 given in the ED -Continue titrating Cardizem drip until shutting off, will start Cardizem by mouth 30 mg 4 times a day first dose now - Diagnosed in 2013 with A. fib RVR, noncompliant and did not take medications prescribed. They discussed previously use of anticoagulants including Coumadin, Eliquis, Xarelto but the patient has not taken any of that medication. - [id number] -VASc risk 2 - HTN, DM COPD exacerbation - Solu-Medrol 125 is 1 dose now, Solu-Medrol 40 mg Q8hrs - Azithromycin IV - DuoNeb's scheduled, duo nebs when necessary - Monitor respiratory status Pancreatitis, acute - Lipase 453 dropped to 157, still having mild abdominal pain mid epigastric region - IV Fluids - Nothing by mouth for now - Pain management EtOH abuse, acute on chronic Elevated LFTs, AST ALT and alkaline phosphatase trending up - Counseled on alcohol abuse - [facility] protocol - Folic acid, thiamine, pantoprazole - Check hepatitis profile - Ultrasound of the liver -CMP in a.m. DM 2 , uncontrolled - hemoglobin A1c P - Insulin sliding scale medium level. Monitor Accu-Cheks. Add Levemir 10 units twice a day Tobacco abuse - Counseled - Nicotine patch Noncompliance - Discuss with patient importance of compliance with medication. DVT prop heparin Problem Qualifiers (1) Chest pain: Qualified Codes: R07.9 - Chest pain, unspecified (2) Pancreatitis: Qualified Codes: K85.20 - Alcohol induced acute pancreatitis without necrosis or infection Anne Duque MD Jan 24, 2017 12:18
[2017-01-24] MEDS ORDERED: INSULIN ASPART SUPPLEMENTAL SCALE SQ SCH (17:00)
[2017-01-24] MEDS ORDERED: MISC INFORMATION OTHER ONE (17:00)
[2017-01-24] MEDS ORDERED: DEXTROSE 50% IN WATER 50 ML SYRINGE IV PUSH PRN (17:00)
[2017-01-24] MEDS ORDERED: INSULIN REGULAR (IV INFUSION) 100 UNITS in SODIUM CHLORIDE 0.9% INJ 99 ML IV SCH (17:00)
[2017-01-24 17:51] LABS: BICARBONATE 25.8 MEQ/L (21.0-32.0); POTASSIUM 4.6 MEQ/L (3.5-5.1)
[2017-01-24] MEDS: AZITHROMYCIN INJ 500 MG in SODIUM CHLOR 0.9% 250 ML INJ 250 ML IV SCH (18:04)
[2017-01-24] MEDS: LORazepam 2 MG/ML VIAL IV PUSH PRN (20:28)
[2017-01-24] MEDS ORDERED: INSULIN DETEMIR 100 UNITS/ML VIAL SQ SCH ×2 (21:00)
[2017-01-24] MEDS ORDERED: INSULIN HUMAN REGULAR 1,000 UNITS/10 ML VIAL IV PUSH PRN (21:00)
[2017-01-25] VITALS (24 sets, daily range): BP systolic 127–158; BP diastolic 72–100; PULSE 63–105; RESP 16–45; TEMP 97.7–98.9; O2SAT 89–97
[2017-01-25] MEDS: methylPREDNISolone SOD SUCC 125 MG/2 ML VIAL IVP SCH ×3 (02:31→17:23)
[2017-01-25] MEDS: ENALAPRILAT 1.25 MG/ML VIAL IV PUSH PRN (03:12)
[2017-01-25] MEDS: RESP: ALBUTEROL 2.5 MG/IPRATROPIUM 0.5 MG NEB (SCH) INH ×4 (03:41→20:14)
[2017-01-25 04:48] LABS: BICARBONATE 28.8 MEQ/L (21.0-32.0); MAGNESIUM 2.2 MG/DL (1.5-2.5); POTASSIUM 3.8 MEQ/L (3.5-5.1)
[2017-01-25] MEDS ORDERED: DEXTROSE 50% IN WATER 50 ML VIAL(D50) IV PUSH PRN (05:45)
[2017-01-25] MEDS ORDERED: GLUCAGON 1 MG/ML VIAL OTHER PRN (05:45)
[2017-01-25] MEDS: HEPARIN SODIUM - SQ 10,000 UNITS/ML VIAL SQ SCH ×2 (05:51→17:23)
--- NOTE | 2017-01-25 06:27 | RADRPT ---
EXAM DATE/TIME: 01/25/2017 05:56 [facility] COMPARISON: No previous studies available for comparison. INDICATIONS : Abdominal distention. MEDICAL HISTORY : Hypertension. A-fib. SURGICAL HISTORY : Umbilical hernia repair. Appendectomy. Spleen repair. ENCOUNTER: Initial ACUITY: 1 day PAIN SCORE: 2/10 LOCATION: all quadrants. FINDINGS: Visualized intestinal gas pattern is nonspecific and benign. There are surgical clips projecting over the left pelvis. No suspicious calcific densities. Mild degenerative changes in the spine and hips. CONCLUSION: Nonspecific benign abdomen appearance Doe Mendenhall MD on January 25, 2017 at 6:24 Board Certified Radiologist. This report was verified electronically.
[2017-01-25] MEDS: INSULIN ASPART SUPPLEMENTAL SCALE SQ SCH ×4 (08:00→20:00)
[2017-01-25] MEDS: SODIUM CHLORIDE 0.9% FLUSH 10 ML FLUSH IV FLUSH SCH ×2 (08:44→21:03)
[2017-01-25] MEDS: FOLIC ACID 1 MG TAB PO SCH (08:44)
[2017-01-25] MEDS: THIAMINE HCL 100 MG TAB PO SCH (08:44)
[2017-01-25] MEDS: PANTOPRAZOLE SOD 40 MG DELAYED RELEASE TAB PO SCH (08:44)
[2017-01-25] MEDS: DOCUSATE SODIUM 50 MG/SENNA 8.6 MG TAB PO SCH ×2 (08:44→21:00)
[2017-01-25] MEDS: DILTIAZEM HCL 30 MG TAB PO SCH ×4 (08:44→21:03)
[2017-01-25] MEDS ORDERED: INSULIN DETEMIR 100 UNITS/ML VIAL SQ SCH (09:00)
--- NOTE | 2017-01-25 14:23 | HHI.PR ---
Subjective Remarks sitting on the edge of the bed he needed venti mask over night /bipap bg still non controlled insulin [facility] Objective Vitals Vital Signs Date Time Temp Pulse Resp B/P (MAP) Pulse Ox O2 Delivery O2 Flow Rate FiO2 01/25/17 09:25 90 21 01/25/17 06:00 70 01/25/17 05:08 93 Venturi Mask 6.00 01/25/17 04:00 72 01/25/17 04:00 97.7 72 23 133/89 (104) 95 01/25/17 02:00 67 01/25/17 00:00 98.0 71 18 143/96 (112) 96 01/25/17 00:00 71 01/24/17 23:36 98 Nasal Cannula 3.00 01/24/17 22:00 86 01/24/17 20:00 97.6 79 23 153/85 (107) 93 01/24/17 20:00 79 01/24/17 17:35 98.1 82 18 150/84 (106) 92 01/24/17 15:00 98.1 94 22 150/95 (113) 95 01/24/17 15:00 97 I/O 01/24/17 01/24/17 01/24/17 01/25/17 01/25/17 01/25/17 07:00 15:00 23:00 07:00 15:00 23:00 Intake Total 720 ml 1200 ml Output Total 1650 ml 3350 ml 1425 ml 600 ml Balance -930 ml -2150 ml -1425 ml -600 ml Intake Oral 720 ml 1200 ml Output Urine Total 1650 ml 3350 ml 1425 ml 600 ml # Bowel Movements 1 2 0 Result Diagram: 01/22/17 1435 01/25/17 0340 Objective Remarks GENERAL: This is an obese, well-developed patient, short of breath. SKIN: Warm and dry. HEAD: Normocephalic. No temporal or scalp tenderness. EYES: Pupils equal round and reactive. Extraocular motions intact. No scleral icterus. No injection or drainage. ENT: Nose without bleeding. Throat without erythema. Uvula midline. Airway patent. NECK: Trachea midline. Supple. CARDIOVASCULAR: Irregularly irregular without murmurs, gallops, or rubs. RESPIRATORY: Diffuse wheezes, positive crackles. GASTROINTESTINAL: Abdomen soft, protuberant. Mid epigastric tenderness to palpation. Bowel sounds active 4. MUSCULOSKELETAL: Extremities without clubbing, cyanosis, trace bilateral lower extremities edema. NEUROLOGICAL: Awake and alert. Oriented to place, person, time. Motor and sensory grossly within normal limits. Normal speech. A/P Problem List: (1) Atrial fibrillation with RVR ICD Code: I48.91 - Unspecified atrial fibrillation Status: Acute (2) COPD exacerbation ICD Code: J44.1 - Chronic obstructive pulmonary disease with (acute) exacerbation Status: Acute (3) Chest pain ICD Code: R07.9 - Chest pain, unspecified Status: Acute (4) Pancreatitis ICD Code: K85.90 - Acute pancreatitis without necrosis or infection, unspecified Status: Acute (5) Alcoholism ICD Code: F10.20 - Alcohol dependence, uncomplicated Status: Acute (6) History of diabetes mellitus ICD Code: Z86.39 - History of diabetes mellitus Status: Chronic (7) Alcohol intoxication ICD Code: F10.129 - Alcohol intoxication Status: Acute (8) Non-compliance ICD Code: Z91.19 - Patient's noncompliance with other medical treatment and regimen (9) Alcoholic liver disease ICD Code: K70.9 - Alcoholic liver disease Status: Acute (10) Respiratory failure ICD Code: J96.90 - Respiratory failure Status: Acute (11) Obstructive sleep apnea ICD Code: G47.33 - Obstructive sleep apnea Status: Chronic (12) Tobacco use ICD Code: Z72.0 - Tobacco use Status: Chronic Assessment and Plan 01/23: Likely is normalized, AST ALT alkaline phosphatase trending up, continue O2 Solu-Medrol, DuoNeb, Cardizem drip titration started on by mouth Uncontrolled DM EEG 500: We'll place on Levemir 10 units twice a day, will give 19 units NovoLog and upgrade ISS to medium level with Accu-Chek every 3 hours 01/24: A1c 11.9, liver ultrasound showed fatty liver with gallbladder sludge, continue with tapering Solu-Medrol. Further adjusting insulin for blood sugar control PEG 192 this morning and increase to 500, will increase Levemir Addendum: Received a call from the nurse blood sugar is still 579 despite giving 20 units of NovoLog and basal insulin in the morning, it has been 500 over 2 readings, will start insulin drip patient will need to go to ICU regular BG checked 01/25: still wheezing profusley , bg uncontrolled , inc levemir , cont high ISS , d/w nurse , will keep in icu untill get bg under control, due to continue inc alk phos and GB sludge on liver enzyme , we checked HIDA scan was normal A/P: Patient is a 56-year-old male with primary medical history of HTN, COPD, tobacco abuse, alcohol abuse, alcoholic liver disease, obstructive sleep apnea, DM 2, A. fib who came in to hospital with complaints of chest pain midsternum "like a tennis ball on my chest" associated with sweating, not feeling too well , "pain is up there." Rule out ACS Chest pain - EKG reviewed by me Jv fib with rapid RVR - Serial troponin, serial CK Jv fib with RVR - Cardizem IV push 2 given in the ED -Continue titrating Cardizem drip until shutting off, will start Cardizem by mouth 30 mg 4 times a day first dose now - Diagnosed in 2013 with Jv epps RVR, noncompliant and did not take medications prescribed. They discussed previously use of anticoagulants including Coumadin, Eliquis, Xarelto but the patient has not taken any of that medication. - [id number] -VASc risk 2 - HTN, DM COPD exacerbation - Solu-Medrol 125 is 1 dose now, Solu-Medrol 40 mg Q8hrs - Azithromycin IV - DuoNeb's scheduled, duo nebs when necessary - Monitor respiratory status Pancreatitis, acute - Lipase 453 dropped to 157, still having mild abdominal pain mid epigastric region - IV Fluids - Nothing by mouth for now - Pain management EtOH abuse, acute on chronic Elevated LFTs, AST ALT and alkaline phosphatase trending up - Counseled on alcohol abuse - [facility] protocol - Folic acid, thiamine, pantoprazole - Check hepatitis profile - Ultrasound of the liver -CMP in a.m. DM 2 , uncontrolled - hemoglobin A1c P - Insulin sliding scale medium level. Monitor Accu-Cheks. Add Levemir 10 units twice a day Tobacco abuse - Counseled - Nicotine patch Noncompliance - Discuss with patient importance of compliance with medication. DVT prop heparin Problem Qualifiers (1) Chest pain: Qualified Codes: R07.9 - Chest pain, unspecified (2) Pancreatitis: Qualified Codes: K85.20 - Alcohol induced acute pancreatitis without necrosis or infection Anne Duque MD Jan 25, 2017 14:23
[2017-01-25] MEDS ORDERED: INSULIN ASPART SUPPLEMENTAL SCALE SQ SCH (14:30)
--- NOTE | 2017-01-25 15:04 | RADRPT ---
EXAM DATE/TIME: 01/25/2017 13:41 [facility] COMPARISON: No previous studies available for comparison. INDICATIONS : Gallbladder sludge and elevated liver enzymes. Nausea. DOSE: 4.4 mCi Tc99m Mebrofenin IV MEDICAL HISTORY : Chronic obstructive pulmonary disease. Diabetes mellitus type 2. Hypertension. Alcohol abuse. SURGICAL HISTORY : Appendectomy. ENCOUNTER: Initial ACUITY: 1 day PAIN SCALE: 0/10 LOCATION: upper quadrant TECHNIQUE: Following the intravenous administration of radiotracer, dynamic sequential images were performed wit h continuous acquisition. FINDINGS: HEPATIC KINETICS: There is prompt uptake of radiotracer in the liver. No focal defects are seen. There is normal rate of washout from the hepatic parenchyma. BILIARY CLEARANCE: Activity is first seen in the extrahepatic biliary system at 15 minutes. There is normal excretion i nto the small bowel. GALLBLADDER: Activity is first seen in the gallbladder at 30 minutes. Common bile duct kinetics are normal and th ere is no evidence of biliary obstruction. BILIARY ENTRIC REFLUX: None observed. CONCLUSION: Normal examination. Ashish Oseguera MD on January 25, 2017 at 15:01 Board Certified Radiologist. This report was verified electronically.
[2017-01-25] MEDS: AZITHROMYCIN INJ 500 MG in SODIUM CHLOR 0.9% 250 ML INJ 250 ML IV SCH (17:23)
[2017-01-25] MEDS: INSULIN DETEMIR 100 UNITS/ML VIAL SQ SCH (21:00)
[2017-01-25] MEDS: ACETAMINOPHEN 325 MG TAB PO PRN (21:25)
[2017-01-26] VITALS (17 sets, daily range): BP systolic 117–152; BP diastolic 71–93; PULSE 60–85; RESP 10–26; TEMP 96.8–98.6; O2SAT 93–100
[2017-01-26] MEDS: methylPREDNISolone SOD SUCC 125 MG/2 ML VIAL IVP SCH ×2 (00:32→07:51)
[2017-01-26] MEDS: RESP: ALBUTEROL 2.5 MG/IPRATROPIUM 0.5 MG NEB (SCH) INH ×4 (03:25→20:05)
[2017-01-26] MEDS: INSULIN ASPART SUPPLEMENTAL SCALE SQ SCH ×6 (04:00→21:00)
[2017-01-26] MEDS: HEPARIN SODIUM - SQ 10,000 UNITS/ML VIAL SQ SCH ×2 (04:22→16:58)
[2017-01-26] MEDS: THIAMINE HCL 100 MG TAB PO SCH (07:51)
[2017-01-26] MEDS: DOCUSATE SODIUM 50 MG/SENNA 8.6 MG TAB PO SCH ×2 (07:51→21:55)
[2017-01-26] MEDS: PANTOPRAZOLE SOD 40 MG DELAYED RELEASE TAB PO SCH (07:51)
[2017-01-26] MEDS: FOLIC ACID 1 MG TAB PO SCH (07:51)
[2017-01-26] MEDS: SODIUM CHLORIDE 0.9% FLUSH 10 ML FLUSH IV FLUSH SCH ×2 (07:52→21:56)
[2017-01-26] MEDS: INSULIN DETEMIR 100 UNITS/ML VIAL SQ SCH ×2 (08:11→21:55)
[2017-01-26] MEDS: DILTIAZEM HCL 30 MG TAB PO SCH ×4 (08:11→21:55)
--- NOTE | 2017-01-26 11:51 | HHI.PR ---
Subjective Remarks Patient doing fairly well however blood sugars still out of control, we are tightening his regimen to improve blood glucose control I will switch him to prednisone by mouth, hopefully discharge in a.m., very extensive counseling about compliance with medication patient had multiple condition such as A. fib, diabetes mellitus, advanced COPD, he is high risk for readmission if he continued to be noncompliant Objective Vitals Vital Signs Date Time Temp Pulse Resp B/P (MAP) Pulse Ox O2 Delivery O2 Flow Rate FiO2 01/26/17 09:00 82 19 117/71 (86) 93 01/26/17 08:00 97 Nasal Cannula 3.00 01/26/17 08:00 98.0 73 20 152/87 (108) 100 01/26/17 08:00 73 01/26/17 06:00 60 01/26/17 04:00 76 01/26/17 04:00 96.8 76 23 148/93 (111) 97 01/26/17 03:59 96 50 01/26/17 02:00 65 01/26/17 00:58 96 50 01/26/17 00:00 97.7 85 26 127/87 (100) 97 01/26/17 00:00 85 01/25/17 22:10 97 50 01/25/17 22:00 79 01/25/17 20:15 97 21 01/25/17 20:00 83 01/25/17 20:00 98.8 83 19 129/85 (100) 95 01/25/17 18:00 103 01/25/17 18:00 103 26 142/86 (104) 91 01/25/17 17:33 101 30 138/82 (100) 95 01/25/17 17:00 89 18 94 01/25/17 16:00 80 01/25/17 15:00 98.9 87 19 92 01/25/17 13:00 81 21 144/82 (102) 95 01/25/17 12:47 87 22 134/72 (92) 95 01/25/17 12:00 96 01/25/17 12:00 98.5 96 21 95 I/O 01/25/17 01/25/17 01/25/17 01/26/17 01/26/17 01/26/17 07:00 15:00 23:00 07:00 15:00 23:00 Intake Total 1000 ml 240 ml Output Total 1425 ml 600 ml 1800 ml 1602 ml Balance -1425 ml -600 ml -800 ml -1362 ml Intake Oral 1000 ml 240 ml IV Total 0 ml Output Urine Total 1425 ml 600 ml 1800 ml 1602 ml # Bowel Movements 0 1 0 Result Diagram: 01/22/17 1435 01/25/17 0340 Objective Remarks GENERAL: This is an obese, well-developed patient, short of breath. SKIN: Warm and dry. HEAD: Normocephalic. No temporal or scalp tenderness. EYES: Pupils equal round and reactive. Extraocular motions intact. No scleral icterus. No injection or drainage. ENT: Nose without bleeding. Throat without erythema. Uvula midline. Airway patent. NECK: Trachea midline. Supple. CARDIOVASCULAR: Irregularly irregular without murmurs, gallops, or rubs. RESPIRATORY: Diffuse wheezes, positive crackles. GASTROINTESTINAL: Abdomen soft, protuberant. Mid epigastric tenderness to palpation. Bowel sounds active 4. MUSCULOSKELETAL: Extremities without clubbing, cyanosis, trace bilateral lower extremities edema. NEUROLOGICAL: Awake and alert. Oriented to place, person, time. Motor and sensory grossly within normal limits. Normal speech. A/P Problem List: (1) Atrial fibrillation with RVR ICD Code: I48.91 - Unspecified atrial fibrillation Status: Acute (2) COPD exacerbation ICD Code: J44.1 - Chronic obstructive pulmonary disease with (acute) exacerbation Status: Acute (3) Chest pain ICD Code: R07.9 - Chest pain, unspecified Status: Acute (4) Pancreatitis ICD Code: K85.90 - Acute pancreatitis without necrosis or infection, unspecified Status: Acute (5) Alcoholism ICD Code: F10.20 - Alcohol dependence, uncomplicated Status: Acute (6) History of diabetes mellitus ICD Code: Z86.39 - History of diabetes mellitus Status: Chronic (7) Alcohol intoxication ICD Code: F10.129 - Alcohol intoxication Status: Acute (8) Non-compliance ICD Code: Z91.19 - Patient's noncompliance with other medical treatment and regimen (9) Alcoholic liver disease ICD Code: K70.9 - Alcoholic liver disease Status: Acute (10) Respiratory failure ICD Code: J96.90 - Respiratory failure Status: Acute (11) Obstructive sleep apnea ICD Code: G47.33 - Obstructive sleep apnea Status: Chronic (12) Tobacco use ICD Code: Z72.0 - Tobacco use Status: Chronic Assessment and Plan 01/23: Likely is normalized, AST ALT alkaline phosphatase trending up, continue O2 Solu-Medrol, DuoNeb, Cardizem drip titration started on by mouth Uncontrolled DM EEG 500: We'll place on Levemir 10 units twice a day, will give 19 units NovoLog and upgrade ISS to medium level with Accu-Chek every 3 hours 01/24: A1c 11.9, liver ultrasound showed fatty liver with gallbladder sludge, continue with tapering Solu-Medrol. Further adjusting insulin for blood sugar control PEG 192 this morning and increase to 500, will increase Levemir Addendum: Received a call from the nurse blood sugar is still 579 despite giving 20 units of NovoLog and basal insulin in the morning, it has been 500 over 2 readings, will start insulin drip patient will need to go to ICU regular BG checked 01/25: still wheezing profusley , bg uncontrolled , inc levemir , cont high ISS , d/w nurse , will keep in icu untill get bg under control, due to continue inc alk phos and GB sludge on liver enzyme , we checked HIDA scan was normal 01/26: Patient doing fairly better, on BiPAP at night, blood glucose still out of control, continue tightening his regimen for better blood glucose control, I will switch to prednisone, hopefully discharge in a.m. A/P: Patient is a 56-year-old male with primary medical history of HTN, COPD, tobacco abuse, alcohol abuse, alcoholic liver disease, obstructive sleep apnea, DM 2, A. fib who came in to hospital with complaints of chest pain midsternum "like a tennis ball on my chest" associated with sweating, not feeling too well , "pain is up there." Rule out ACS Chest pain - EKG reviewed by me A. fib with rapid RVR - Serial troponin, serial CK A. fib with RVR - Cardizem IV push 2 given in the ED -Continue titrating Cardizem drip until shutting off, will start Cardizem by mouth 30 mg 4 times a day first dose now - Diagnosed in 2013 with A. fib RVR, noncompliant and did not take medications prescribed. They discussed previously use of anticoagulants including Coumadin, Eliquis, Xarelto but the patient has not taken any of that medication. - [id number] -VASc risk 2 - HTN, DM COPD exacerbation - Solu-Medrol 125 is 1 dose now, Solu-Medrol 40 mg Q8hrs - Azithromycin IV - DuoNeb's scheduled, duo nebs when necessary - Monitor respiratory status Pancreatitis, acute - Lipase 453 dropped to 157, still having mild abdominal pain mid epigastric region - IV Fluids - Nothing by mouth for now - Pain management EtOH abuse, acute on chronic Elevated LFTs, AST ALT and alkaline phosphatase trending up - Counseled on alcohol abuse - [facility] protocol - Folic acid, thiamine, pantoprazole - Check hepatitis profile - Ultrasound of the liver -CMP in a.m. DM 2 , uncontrolled - hemoglobin A1c P - Insulin sliding scale medium level. Monitor Accu-Cheks. Add Levemir 10 units twice a day Tobacco abuse - Counseled - Nicotine patch Noncompliance - Discuss with patient importance of compliance with medication. DVT prop heparin Discharge Planning In a.m. Problem Qualifiers (1) Chest pain: Qualified Codes: R07.9 - Chest pain, unspecified (2) Pancreatitis: Qualified Codes: K85.20 - Alcohol induced acute pancreatitis without necrosis or infection Anne Duque MD Jan 26, 2017 11:51
[2017-01-26] MEDS: INSULIN ASPART 1,000 UNITS/10 ML VIAL SQ SCH ×2 (12:00→16:58)
[2017-01-26] MEDS: AZITHROMYCIN INJ 500 MG in SODIUM CHLOR 0.9% 250 ML INJ 250 ML IV SCH (16:57)
[2017-01-26] MEDS ORDERED: methylPREDNISolone SOD SUCC 125 MG/2 ML VIAL IVP SCH (21:00)
[2017-01-26] MEDS: LORazepam 1 MG TAB PO PRN (21:55)
[2017-01-26] MEDS: predniSONE 20 MG TAB PO SCH (21:55)
[2017-01-27 00:15] VITALS: BP 131/81; PULSE 65; RESP 18; TEMP 97.1; O2SAT 98
[2017-01-27 04:53] VITALS: BP 137/78; PULSE 76; RESP 18; TEMP 97.7; O2SAT 94
[2017-01-27] MEDS: HEPARIN SODIUM - SQ 10,000 UNITS/ML VIAL SQ SCH (06:28)
[2017-01-27 08:00] VITALS: BP 126/70; PULSE 102; PULSE 83; RESP 20; TEMP 97.9; O2SAT 94
[2017-01-27] MEDS: INSULIN ASPART 1,000 UNITS/10 ML VIAL SQ SCH (09:24)
[2017-01-27] MEDS: INSULIN ASPART SUPPLEMENTAL SCALE SQ SCH ×2 (09:25→12:01)
[2017-01-27] MEDS: PANTOPRAZOLE SOD 40 MG DELAYED RELEASE TAB PO SCH (09:26)
[2017-01-27] MEDS: DILTIAZEM HCL 30 MG TAB PO SCH ×2 (09:26→12:00)
[2017-01-27] MEDS: SODIUM CHLORIDE 0.9% FLUSH 10 ML FLUSH IV FLUSH SCH (09:26)
[2017-01-27] MEDS: DOCUSATE SODIUM 50 MG/SENNA 8.6 MG TAB PO SCH (09:27)
[2017-01-27] MEDS: predniSONE 20 MG TAB PO SCH (09:27)
[2017-01-27] MEDS: THIAMINE HCL 100 MG TAB PO SCH (09:27)
[2017-01-27] MEDS: FOLIC ACID 1 MG TAB PO SCH (09:27)
[2017-01-27] MEDS: INSULIN DETEMIR 100 UNITS/ML VIAL SQ SCH (09:27)
[2017-01-27] MEDS ORDERED: NOVOLOGP2 SQ (10:28)
[2017-01-27] MEDS ORDERED: LEVEMIR SQ (10:28)
[2017-01-27] MEDS ORDERED: FOLI1TAB6 PO (10:28)
[2017-01-27] MEDS ORDERED: LEVA250T14 PO (10:28)
[2017-01-27] MEDS ORDERED: NOVOLOGSS SQ (10:28)
[2017-01-27] MEDS ORDERED: PRED10PA2 PO (10:28)
[2017-01-27] MEDS ORDERED: GNP100TA3 PO (10:28)
[2017-01-27] MEDS ORDERED: CARD120C4 PO (10:29)
[2017-01-27] MEDS ORDERED: SYMB160A INH (10:30)
[2017-01-27] MEDS ORDERED: IPRASOL INH (10:30)
[2017-01-27] MEDS ORDERED: LEVA500T20 PO (10:32)
[2017-01-27 11:22] VITALS: O2SAT 97
[2017-01-27 12:00] VITALS: BP 140/84; PULSE 87; RESP 20; TEMP 97.8; O2SAT 95
[2017-01-27] MEDS ORDERED: INSULIN ASPART 1,000 UNITS/10 ML VIAL SQ SCH (12:00)
--- NOTE | 2017-01-27 12:05 | HHI.DS ---
Discharge Summary Admission Date Jan 22, 2017 at 16:12 Discharge Date: Jan 27, 2017 Admitting Diagnosis atrial fibrillation with RVR, chest pain, COPD exac, pancreatitis (1) Atrial fibrillation with RVR ICD Code: I48.91 - Unspecified atrial fibrillation Status: Acute (2) COPD exacerbation ICD Code: J44.1 - Chronic obstructive pulmonary disease with (acute) exacerbation Status: Acute (3) Chest pain ICD Code: R07.9 - Chest pain, unspecified Status: Acute (4) Pancreatitis ICD Code: K85.90 - Acute pancreatitis without necrosis or infection, unspecified Status: Acute (5) Alcoholism ICD Code: F10.20 - Alcohol dependence, uncomplicated Status: Acute (6) History of diabetes mellitus ICD Code: Z86.39 - History of diabetes mellitus Status: Chronic (7) Alcohol intoxication ICD Code: F10.129 - Alcohol intoxication Status: Acute (8) Non-compliance ICD Code: Z91.19 - Patient's noncompliance with other medical treatment and regimen (9) Alcoholic liver disease ICD Code: K70.9 - Alcoholic liver disease Status: Acute (10) Respiratory failure ICD Code: J96.90 - Respiratory failure Status: Acute (11) Obstructive sleep apnea ICD Code: G47.33 - Obstructive sleep apnea Status: Chronic (12) Tobacco use ICD Code: Z72.0 - Tobacco use Status: Chronic Procedures none Brief History - From Admission Written by Nir Deras, acting as scribe for Dr. Duque on 01/22/17 at 16:41. Patient is a 56-year-old male with primary medical history of HTN, COPD, tobacco abuse, alcohol abuse, alcoholic liver disease, obstructive sleep apnea, DM 2, A. fib who came in to hospital with complaints of chest pain midsternum "like a tennis ball on my chest" associated with sweating, not feeling too well , "pain is up there." Patient also states that he has increasing shortness of breath 2 weeks and 8/worsening. In addition, he also complained of abdominal pain mid abdomen region radiating to the back, unable to describe, and able to know what aggravates or relieves the pain. States he has been coughing, expectorating yellow colored sputum. States he has been feeling hot, feverish, does not know real temperature. States he needs to be in front of the fan for almost all the time. Patient states he is not taking any medications or any prescribed medication. Reports drinking to 4 packs of her today and has been drinking 2-4 packs every day. Otherwise, denies headaches, dizziness. Denies fevers, chills, n/v/d. Denies dysuria. CBC/BMP: 01/25/17 0340 Significant Findings Laboratory Tests Test 01/24/17 16:50 01/25/17 03:40 01/25/17 07:40 Blood Urea Nitrogen 20 MG/DL (7-18) 20 MG/DL (7-18) Random Glucose 470 MG/DL (74-106) 273 MG/DL (74-106) Sodium Level 128 MEQ/L (136-145) 135 MEQ/L (136-145) Chloride Level 94 MEQ/L (98-107) Estimat Glomerular Filtration Rate 77 ML/MIN (>89) PE at Discharge GENERAL: This is an obese, well-developed patient, short of breath. SKIN: Warm and dry. HEAD: Normocephalic. No temporal or scalp tenderness. EYES: Pupils equal round and reactive. Extraocular motions intact. No scleral icterus. No injection or drainage. ENT: Nose without bleeding. Throat without erythema. Uvula midline. Airway patent. NECK: Trachea midline. Supple. CARDIOVASCULAR: Irregularly irregular without murmurs, gallops, or rubs. RESPIRATORY: Diffuse wheezes, positive crackles. GASTROINTESTINAL: Abdomen soft, protuberant. Mid epigastric tenderness to palpation. Bowel sounds active 4. MUSCULOSKELETAL: Extremities without clubbing, cyanosis, trace bilateral lower extremities edema. NEUROLOGICAL: Awake and alert. Oriented to place, person, time. Motor and sensory grossly within normal limits. Normal speech. Hospital Course Patient admitted with chest pain A. fib with RVR started on Cardizem drip switched to Cardizem by mouth, patient still refusing anticoagulation despite explaining his high risk of thrombosis CVA. Patient has significant history of noncompliance, alcohol and tobacco abuse, not controlled diabetes We worked on controlling his blood sugar, significant and extensive diabetic education. Initially admitted with increased lipase acute pancreatitis which improved her on, elevated LFT liver ultrasound fatty liver mostly alcoholic hepatitis. BiPAP has been used overnight for obstructive sleep apnea. Patient got stable enough to be discharged home, multiple and extensive counseling about compliance and tobacco alcohol abstinence has been provided. She has oxygen at home as he told me, DuoNeb and Symbicort has been ordered [id number] encounter performed with the patient on discharge day, as well as physical exam, summary of hospitalization course and postdischarge plan has been D/W the patient. D/W nurse D/W cyanide case hardener. Discharge medications reviewed and printed and signed, post discharge follow up visit with PCP and other specialist as well as Brief hospital course and discharge summary has been placed. Pt Condition on Discharge: Fair Discharge Disposition: Discharge Home Discharge Time: > 30 minutes Discharge Instructions DIET: Follow Instructions for: Heart Healthy Diet, Diabetic Diet Activities you can perform: Weight Bearing as Dhruv New Medications: Budesonide-Formoterol Inh (Symbicort Inh) 160-4.5 Mcg/Act Aero 2 PUFF INH Q12HR, #1 INHALER 0 Refills Diltiazem CD 24 HR (Cardizem CD 24 HR) 120 Mg Caper 120 MG PO DAILY for afib, #30 CAP 0 Refills Ipratropium-Albuterol Neb (Duoneb) 0.5-2.5 Mg/3 Ml Neb 1 NEBULE INH Q4HR NEB for SHORTNESS OF BREATH, #120 NEBULE 0 Refills Levofloxacin (Levaquin) 250 Mg Tablet 250 MG PO DAILY for Infection, #7 TAB 0 Refills Levofloxacin (Levaquin) 500 Mg Tablet 500 MG PO DAILY for Infection for 7 Days, #7 TAB 0 Refills Prednisone (48) 10 mg tab Dose Pack (Prednisone (48) 10 mg tab Dose Pack) 10 Mg Dspk 10 MG PO DIRECTED for Inflammation, #1 DSPK 0 Refills Folic Acid (Folic Acid) 1 Mg Tablet 1 MG PO DAILY for DT proph, #30 TAB Insulin Aspart Inj (Novolog Inj) 1,000 Unit/10 Ml Vial 5 UNITS SQ TIDAC for dm for 30 Days, INJECTION Insulin Aspart Inj (Novolog Inj) 100 Unit/Ml Inj 1 UNIT SQ ACHS SLIDING SCALE for dm for 30 Days, INJECTION Insulin Detemir Inj (Levemir Inj) 1,000 unit/ 10 ML Vial 33 UNITS SQ Q12HR for dm for 30 Days, INJECTION Do not mix with any other Insulin. Thiamine HCl (Gnp Vitamin B-1) 100 Mg Tab 100 MG PO DAILY for Dt proph, #30 TAB Anne Duque MD Jan 27, 2017 12:05
[2017-01-27] MEDS ORDERED: INSULIN DETEMIR 100 UNITS/ML VIAL SQ SCH (21:00)
== END 2017-01-27 14:45 | disposition home or self-care (01) | DRG 308 ==
LOC: NEPE 14:22 → NEDA 16:12 → HCIN 21:30 → HIMN 01-24 17:30 → N04B 01-26 14:50
PROVIDERS: ADMIT Hospitalist; ATTEND Hospitalist
DX: I48.91 Unspecified atrial fibrillation (principal); K85.20 Alcohol induced acute pancreatitis without necrosis or infection; J96.90 Respiratory failure, unspecified, unspecified whether with hypoxia or hypercapnia; J44.1 Chronic obstructive pulmonary disease with (acute) exacerbation; F10.288 Alcohol dependence with other alcohol-induced disorder; E11.65 Type 2 diabetes mellitus with hyperglycemia; K70.10 Alcoholic hepatitis without ascites; F10.229 Alcohol dependence with intoxication, unspecified; I10 Essential (primary) hypertension; G47.33 Obstructive sleep apnea (adult) (pediatric); F17.210 Nicotine dependence, cigarettes, uncomplicated; Z79.4 Long term (current) use of insulin; Z91.19 Patient's noncompliance with other medical treatment and regimen; Z99.81 Dependence on supplemental oxygen
CPT/HCPCS: 71010; 74000; 76705; 78226; 80048; 80053; 80074; 80076; 82140; 82550; 82552; 82948; 83036; 83690; 83735; 84100; 84484; 85025; 85610; 85730; 87641; 90686; 93005; 94002; 94003; 94620; 94640; 94664; 96361; 96365; 96375; 96376; A9537; J0456; J1644; J1815; J1817; J2060; J2930; J7030; J7050; J7512; Q2038

== ENCOUNTER 2018-02-11 19:44 | Inpatient (IN) ==
[2018-02-11] MEDS ORDERED: Clindamycin 900 mg/NS Premix 900 MG/50 ML PIGGYBACK IV.SIG ONE (20:04)
[2018-02-11 20:39] LABS: Baso % (Auto) 0.8 % (0.0-2.0); Eos # (Auto) 0.1 th/mm3 (0.0-0.4); Eos % (Auto) 1.7 % (0.0-4.0); Hematocrit 42.8 % (39.0-51.0); Hemoglobin 15.2 gm/dL (13.0-17.0); Lymph # (Auto) 1.5 th/mm3 (1.0-4.8); Mean Corpuscular HGB Conc 35.5 % (32.0-36.0); Mean Corpuscular Hemoglobin 32.3 pg (27.0-34.0); Mean Corpuscular Volume 90.9 fL (80.0-100.0); Mean Platelet Volume 7.4 fL (7.0-11.0); Mono # (Auto) 0.5 th/mm3 (0.0-0.9); Neut % (Auto) 63.5 % (16.0-70.0); Platelet Count 210 th/mm3 (150-450); Red Blood Count 4.71 mil/mm3 (4.50-5.90); White Blood Count 6.1 th/mm3 (4.0-11.0)
--- NOTE | 2018-02-11 20:59 | XR ---
EXAM DATE: 02/11/2018 8:41 PM EDT AGE/SEX: 58 years / Male INDICATIONS: Inflammation. CLINICAL DATA: This is the patient's initial encounter. Patient reports that signs and symptoms have been present for 2 days and indicates a pain score of 10/10. MEDICAL/SURGICAL HISTORY: Diabetes mellitus type II. None. COMPARISON: [facility], FOOT COMPLETE RIGHT 3V, 11/24/2017. . FINDINGS: There is bony destruction of the distal phalanx of the second toe most characteristic of osteomyeliti s. Advanced degenerative change at the first MTP. No acute fracture identified. CONCLUSION: Bony destruction distal phalanx second toe most characteristic of osteomyelitis. Electronically signed by: Dae Jose MD 02/11/2018 8:57 PM EDT
[2018-02-11 21:00] LABS: Chloride 96 meq/L (98-107); Potassium 3.2 meq/L (3.5-5.1); Sodium 132 meq/L (136-145)
[2018-02-11 21:03] LABS: Calcium 8.2 mg/dL (8.5-10.1)
[2018-02-11 21:04] LABS: Anion Gap 9 meq/L (5-15); Blood Urea Nitrogen 7 mg/dL (7-18); Carbon Dioxide 27.3 meq/L (21.0-32.0); Glucose,Random 152 mg/dL (74-106)
[2018-02-11 21:07] LABS: Glomerular Filtration Rate Greater Than 89 mL/min (>89)
--- NOTE | 2018-02-11 21:23 | ED ---
HPI General Chief Complaint: Extremity Injury, Lower Stated Complaint: R foot inj recheck Time Seen by Provider: 02/11/18 19:57 Source: patient Mode of arrival: ambulatory Limitations: no limitations History of Present Illness HPI Narrative: The patient is 58 years old and arrives with R second toe pain, swelling and erythema. Duration a few weeks. A course of antibiotics did not help. No fever. Constant pain is reported. + radiation to ankle reported. +hx DM2. MD complaint: Reports foot injury Onset (ago): week(s) Related Data Home Medications Medication Instructions Recorded Confirmed metformin 1,000 mg PO BID 11/24/17 02/11/18 Allergies Allergy/AdvReac Type Severity Reaction Status Date / Time No Known Allergies Allergy Verified 02/11/18 19:53 Review of Systems ROS: all other systems reviewed are negative [facility] Medical History Medical History COPD (chronic obstructive pulmonary disease) (Acute) Diabetes (Acute) Sleep apnea (Acute) Surgical History Surgical History Hx of appendectomy (Acute) Hx of hernia repair (Acute) Social History Social History Substance History: No History of Abuse Second Hand Smoke Exposure: Yes Smoking Status: Current every day smoker Tobacco Type: Cigarettes How Often Do You Have a Drink Containing Alcohol: 2 to 3 times a week Recent Travel in [facility] within the Last 8 Weeks: No Recent Out of Country Travel within the Last 8 Weeks: No Exam Narrative Exam Narrative: GENERAL: 58 yo M, WNWD NAD, pleasant SKIN: Focused skin assessment warm/dry. HEAD: Atraumatic. Normocephalic. EYES: Pupils equal and round. No scleral icterus. No injection or drainage. ENT: No nasal bleeding or discharge. Mucous membranes pink and moist. NECK: Trachea midline. No JVD. CARDIOVASCULAR: Regular rate and rhythm. No murmur appreciated. RESPIRATORY: No accessory muscle use. Clear to auscultation. Breath sounds equal bilaterally. GASTROINTESTINAL: Abdomen soft, non-tender, nondistended. Hepatic and splenic margins not palpable. MUSCULOSKELETAL: R 2nd toe is erythematous, edematous and tender. no open wound NEUROLOGICAL: Awake and alert. No obvious cranial nerve deficits. Motor grossly within normal limits. Normal speech. PSYCHIATRIC: Appropriate mood and affect; insight and judgment normal. Course Initial Documented Vital Signs Temperature 97.8 F 02/11/18 19:46 Pulse Rate 88 02/11/18 19:46 Respiratory Rate 20 02/11/18 19:46 Blood Pressure 113/79 02/11/18 19:46 Pulse Oximetry 97 02/11/18 19:46 Last Documented Vital Signs Temperature 97.8 F 02/11/18 19:46 Pulse Rate 88 02/11/18 19:46 Respiratory Rate 20 02/11/18 19:46 Blood Pressure 113/79 02/11/18 19:46 Pulse Oximetry 97 02/11/18 19:46 Medical Decision Making MDM Narrative Medical decision making narrative: Pt has osteo. Abx started. d/w Dr Nuñez pt agreeable with plan Medical Screen Exam Complete: Yes Emergency Medical Condition: Yes Differential Diagnosis Differential Diagnosis: osteo, cellulitis, hyperglycemia Lab Data Result diagrams: 02/11/18 20:15 02/11/18 20:15 Lab Results 02/11/18 02/11/18 Range/Units 20:15 20:15 CBC w Diff Auto diff final WBC 6.1 (4.0-11.0) th/mm3 RBC 4.71 (4.50-5.90) mil/mm3 Hgb 15.2 (13.0-17.0) gm/dL Hct 42.8 (39.0-51.0) % MCV 90.9 (80.0-100.0) fL MCH 32.3 (27.0-34.0) pg MCHC 35.5 (32.0-36.0) % RDW 13.0 (11.6-17.2) % Plt Count 210 (150-450) th/mm3 MPV 7.4 (7.0-11.0) fL Neut % (Auto) 63.5 (16.0-70.0) % Lymph % (Auto) 25.0 (9.0-44.0) % Stearns % (Auto) 9.0 H (0.0-8.0) % Eos % (Auto) 1.7 (0.0-4.0) % Baso % (Auto) 0.8 (0.0-2.0) % Neut # (Auto) 4.0 (1.8-7.7) th/mm3 Lymph # (Auto) 1.5 (1.0-4.8) th/mm3 Stearns # (Auto) 0.5 (0.0-0.9) th/mm3 Eos # (Auto) 0.1 (0.0-0.4) th/mm3 Baso # (Auto) 0.0 (0.0-0.2) th/mm3 WBC Differential . Differential Comment . Sodium 132 L (136-145) meq/L Potassium 3.2 L (3.5-5.1) meq/L Chloride 96 L (98-107) meq/L Carbon Dioxide 27.3 (21.0-32.0) meq/L Anion Gap 9 (5-15) meq/L BUN 7 (7-18) mg/dL Creatinine 0.80 (0.60-1.30) mg/dL Estimated GFR Greater than 89 (>89) mL/min Random Glucose 152 H (74-106) mg/dL Calcium 8.2 L (8.5-10.1) mg/dL Imaging Data Radiologist's impression: Foot X-Ray 02/11/18 20:06 CONCLUSION: Bony destruction distal phalanx second toe most characteristic of osteomyelitis. Discharge Plan Discharge Disposition Patient Disposition: 30 Still Patient Physicians Team ED Provider: Balwinder Daily Primary Care Provider: Primary Care Natalyi,No Other Providers: Ariane Nicolas Rxs /Orders / Referrals /Forms Prescriptions: No Action metformin 1,000 mg Tablet 1,000 mg PO BID RF: 0 Status ED Status: With Doctor
[2018-02-11] MEDS ORDERED: Vancomycin Consult Pharmacy OTHER PRN (21:26)
[2018-02-11] MEDS ORDERED: Vancomycin Inj 1 GM/200 ML PIGGYBACK IV.SIG ONE (21:26)
[2018-02-11] MEDS ORDERED: Bisacodyl 10 MG Supp RECTAL PRN (21:28)
[2018-02-11] MEDS ORDERED: Dextrose 50% in Water 50 ML Vial IV.PUSH PRN (21:28)
[2018-02-11] MEDS: Piperacil/Tazo 4.5 GM Premix 4.5 GM/100 ML BAG IV.SIG SCH ×2 (21:40→23:33)
[2018-02-11] MEDS: Sod Chloride 0.9% Inj 1,000 ML IV.CONT SCH (21:40)
[2018-02-11] MEDS ORDERED: Vancomycin Inj 1,000 MG in Sodium Chlor 0.9% Inj 250 ML IV.SIG ONE (22:00)
[2018-02-12] MEDS: Vancomycin Inj 2,000 MG in Sodium Chlor 0.9% Inj 500 ML IV.SIG SCH (04:23)
[2018-02-12] MEDS: Piperacil/Tazo 4.5 GM Premix 4.5 GM/100 ML BAG IV.SIG SCH ×4 (06:41→21:56)
[2018-02-12 07:47] LABS: Baso % (Auto) 0.6 % (0.0-2.0); Eos # (Auto) 0.1 th/mm3 (0.0-0.4); Eos % (Auto) 3.5 % (0.0-4.0); Hematocrit 46.1 % (39.0-51.0); Hemoglobin 15.4 gm/dL (13.0-17.0); Lymph # (Auto) 1.1 th/mm3 (1.0-4.8); Lymph % (Auto) 25.2 % (9.0-44.0); Mean Corpuscular HGB Conc 33.4 % (32.0-36.0); Mean Corpuscular Hemoglobin 31.3 pg (27.0-34.0); Mean Corpuscular Volume 93.5 fL (80.0-100.0); Mean Platelet Volume 7.3 fL (7.0-11.0); Mono # (Auto) 0.4 th/mm3 (0.0-0.9); Mono % (Auto) 10.3 % (0.0-8.0); Neut # (Auto) 2.6 th/mm3 (1.8-7.7); Neut % (Auto) 60.4 % (16.0-70.0); Platelet Count 182 th/mm3 (150-450); Red Blood Count 4.93 mil/mm3 (4.50-5.90); Red Cell Distribution Width 12.6 % (11.6-17.2); White Blood Count 4.2 th/mm3 (4.0-11.0)
[2018-02-12] MEDS: Insulin NovoLOG Aspart Correctional Sugar Inj SQ SCH ×4 (07:50→21:55)
[2018-02-12] MEDS: Sod Chloride 0.9% Inj 1,000 ML IV.CONT SCH ×2 (08:09→18:38)
[2018-02-12 08:24] LABS: Anion Gap 4 meq/L (5-15); Blood Urea Nitrogen 8 mg/dL (7-18); Calcium 8.1 mg/dL (8.5-10.1); Carbon Dioxide 30.1 meq/L (21.0-32.0); Chloride 104 meq/L (98-107); Glomerular Filtration Rate Greater Than 89 mL/min (>89); Glucose,Random 114 mg/dL (74-106); Magnesium 2.3 mg/dL (1.5-2.5); Phosphorus 3.8 mg/dL (2.5-4.9); Potassium 3.9 meq/L (3.5-5.1); Sodium 138 meq/L (136-145)
--- NOTE | 2018-02-12 09:07 | P.HP ---
History of Present Illness Primary Care Physician: No Primary Care Physician Chief Complaint: Toe pain History of Present Illness: 58-year-old male with known history of diabetes who presented to hospital because of toe pain. Patient states that he has been having problems with his right foot second toe for quite some time now. He does not have a primary medical doctor. The patient did come to the emergency department to [facility] on 11/24/17 for his toe. At that time he states that a piece of the tip of his toe came off on its own. Patient indicated that he got frustrated about the care he received in the emergency department, he was given a prescription for antibiotics but he did not take them. He went to [facility] and was evaluated there and he states that he was given 3 different antibiotics in which he took, he does not remember the names of the antibiotics. The patient states that his toe got progressively worse so he came to the emergency department again. Workup was done which did indicate osteomyelitis of the right foot second digit. Patient did have previous cultures taken back from November which did show Enterococcus faecalis infection. Currently the patient does not have any stomach findings. Patient does not have any signs of sepsis. He is afebrile, no leukocytosis. - Diagnosis (1) Osteomyelitis of toe of right foot Inpatient Certification: I certify that the inpatient services were ordered in accordance with Medicare regulations governing the order. This includes certification that hospital inpatient services are reasonable and necessary and in the case of services not specified as inpatient-only under 42 CFR 419.22(n), that they are appropriately provided as inpatient services in accordance to with the 2-midnight benchmark under 43 CFR 412.3(e) Estimated Total Length of Stay (Days): 2 Plans for Post Hospital Care: Home Review of Systems All other systems reviewed negative except as stated in HPI Skin/Breast: Reports redness, Reports wounds PMFSH - History History Provided By: Patient - Medical History Medical History: Medical History (Last Reviewed 02/11/18 @ 20:08 by Santiago Flores RN) COPD (chronic obstructive pulmonary disease) Diabetes Sleep apnea - Surgical History Surgical History: Surgical History (Last Updated 02/11/18 @ 20:08 by Santiago Flores RN) Hx of appendectomy Hx of hernia repair - Family History Family History: Family History (Last Updated 02/12/18 @ 09:09 by LETICIA Godoy) Brother Family history of colon cancer Father Family history of diabetes mellitus Sister Family history of diabetes mellitus - Tobacco History Second Hand Smoke Exposure: Yes Tobacco Use In Past 30 Days: Yes Smoking Status: Current every day smoker Tobacco Type: Cigarettes Packs Per Day: 1 - Alcohol History How Often Do You Have a Drink Containing Alcohol: 4 or more times a week ( Patient drinks at least 4 beers daily) - Substance Use History Substance History: Active Abuse - Substance Use Type Crack/Cocaine Status: Active Route Used: Inhalation - Travel History Recent Travel in the [place] Within the Last 8 Weeks: No Recent Travel Out of the Country Within the Last 8 Weeks: No - Immunization History Tetanus Immunization: Unsure Hx Influenza Vaccine This Season: No Medications and Allergies Active Medications: Active Medications Al Hydroxide/Mg Hydroxide (Milk Of Magnesia Liq) 30 ml PO Q12H PRN PRN Reason: Mild Constipation Bisacodyl (Dulcolax Supp) 10 mg RECTAL DAILY PRN PRN Reason: SEVERE CONSITIPATION Dextrose (D50w Vial) 50 ml IV.PUSH UNSCH PRN PRN Reason: PER HYPOGLYCEMIA PROTOCOL Glucagon (Glucagon Inj) 1 mg OTHER PRN PRN PRN Reason: for Hypoglycemia Protocol Piperacillin/Tazobactam/Dextrose (Zosyn 4.5 Gm Premix) 4.5 gm in 100 mls @ 200 mls/hr IV.SIG Q6H DEL Last Infusion: 02/12/18 07:13 Dose: Infused Sodium Chloride (Ns Inj) 1,000 mls @ 100 mls/hr IV.CONT .Q10H DEL Last Admin: 02/12/18 08:09 Dose: 100 mls/hr Vancomycin HCl 2,000 mg/ (Sodium Chloride) 520 mls @ 250 mls/hr IV.SIG Q24H DEL Last Infusion: 02/12/18 06:39 Dose: Infused Insulin Aspart (Novolog Insulin Correctional Sugar Inj) 0 unit SQ ACHS DEL; Protocol Last Admin: 02/12/18 07:50 Dose: Not Given Lactulose (Lactulose Liq) 30 ml PO DAILY PRN PRN Reason: SEVERE CONSITIPATION Miscellaneous Information ([facility] Ordered Lab Info) 0 each OTHER ONCE@ 0345 ONE Stop: 02/13/18 03:46 Pharmacy Profile Note (Vancomycin Consult Pharmacy) 1 each OTHER UNSCH PRN PRN Reason: Pharmacy to dose Sennosides (Senokot) 17.2 mg PO Q12H PRN PRN Reason: Moderate Constipation Allergies Allergy/AdvReac Type Severity Reaction Status Date / Time No Known Allergies Allergy Verified 02/11/18 19:53 Home Medications Medication Instructions Recorded Confirmed Type metformin 1,000 mg PO BID 11/24/17 02/11/18 History Exam Vital signs: Vital Signs 02/11/18 19:46 02/11/18 22:52 02/12/18 00:00 Temperature 97.8 F 97.2 F L Pulse Rate 88 78 76 Respiratory Rate 20 18 20 Blood Pressure 113/79 116/74 119/75 Pulse Oximetry 97 97 94 L Intake & Output 02/11/18 02/12/18 02/12/18 18:59 06:59 18:59 Intake Total 940 / 940 1100 / 1100 Output Total 1575 / 1575 550 / 550 Balance -635 / -635 550 / 550 Weight 95 kg Intake: IV 940 / 940 1100 / 1100 NS Inj 1,000 ML @ 100 mls/hr IV 1000 / 1000 .CONT .Q10H [facility] Rx#:[id number] Cleocin 900 mg/NS Premix 900 mg 50 / 50 In 50 ml @ 100 mls/hr IV.SIG ONCE ONE Rx#:[id number] Zosyn 4.5 GM Premix 4.5 gm In 100 / 100 100 / 100 100 ml @ 200 mls/hr IV.SIG Q6H [facility] Rx#:[id number] Vancomycin Inj 1,000 MG In NS 250 / 250 Inj 250 ML @ 250 mls/hr IV.SIG ONCE ONE Rx#:[id number] Vancomycin Inj 2,000 MG In NS 540 / 540 Inj 500 ML @ 250 mls/hr IV.SIG Q24H [facility] Rx#:[id number] Output: Urine 1575 / 1575 550 / 550 Other: Weight On Admission 95 kg Narrative: GENERAL: Well-developed, well-nourished, in no acute distress. alert and orientated HEENT: Head is normocephalic without any lesions or masses noted. Facial features are symmetric. Eyes: Pupils equal round reactive to light. Extraocular muscles are intact. Conjunctivae were clear. Oropharyngeal: Pharynx without any erythema edema. Tongue is midline without deviation. Buccal mucosa is moist without any masses or lesions NECK: Supple without any masses. Trachea midline no deviation. No JVD, no bruits are appreciated CARDIAC: Regular rhythm, regular rate. S1/S2 are heard. No murmurs gallops or rubs. LUNGS: Clear to auscultation bilaterally. No wheeze, rhonchi or rales. No use of accessory muscles on inspiration or expiration. ABDOMEN: Soft, nontender. Nondistended. Bowel sounds heard in all 4 quadrants. No organomegaly or masses. Negative rebound, negative guarding EXTREMITIES: No edema, pulses are equal bilaterally. No cyanosis or clubbing NEUROLOGY: Mood and affect appear appropriate. Cranial nerves II through XII grossly intact. Muscle strength 5/5 in upper and lower extremities bilaterally. Deep tendon reflexes are 2+ in upper and lower extremities bilaterally. RIGHT FOOT: Second digit has significant edema, erythema, there is a puncture wound noted at the very tip of his toe. Patient does have skin peeling off from around the toe. Results - Labs CBC & Chem 7: 02/12/18 07:00 02/12/18 07:00 Labs: Laboratory Results - last 24 hr 02/11/18 02/11/18 02/12/18 20:15 20:15 07:00 CBC w Diff Auto diff final Auto diff final WBC 6.1 4.2 RBC 4.71 4.93 Hgb 15.2 15.4 Hct 42.8 46.1 MCV 90.9 93.5 MCH 32.3 31.3 MCHC 35.5 33.4 RDW 13.0 12.6 Plt Count 210 182 MPV 7.4 7.3 Neut % (Auto) 63.5 60.4 Lymph % (Auto) 25.0 25.2 [place] % (Auto) 9.0 H 10.3 H Eos % (Auto) 1.7 3.5 Baso % (Auto) 0.8 0.6 Neut # (Auto) 4.0 2.6 Lymph # (Auto) 1.5 1.1 [place] # (Auto) 0.5 0.4 Eos # (Auto) 0.1 0.1 Baso # (Auto) 0.0 0.0 WBC Differential . . Differential Comment . . Sodium 132 L Potassium 3.2 L Chloride 96 L Carbon Dioxide 27.3 Anion Gap 9 BUN 7 Creatinine 0.80 Estimated GFR Greater than 89 POC Glucose Random Glucose 152 H Calcium 8.2 L Phosphorus Magnesium Albumin 02/12/18 02/12/18 07:00 07:33 CBC w Diff WBC RBC Hgb Hct MCV MCH MCHC RDW Plt Count MPV Neut % (Auto) Lymph % (Auto) [place] % (Auto) Eos % (Auto) Baso % (Auto) Neut # (Auto) Lymph # (Auto) [place] # (Auto) Eos # (Auto) Baso # (Auto) WBC Differential Differential Comment Sodium 138 Potassium 3.9 Chloride 104 D Carbon Dioxide 30.1 Anion Gap 4 L BUN 8 Creatinine 0.64 Estimated GFR Greater than 89 POC Glucose 127 H Random Glucose 114 H Calcium 8.1 L Phosphorus 3.8 Magnesium 2.3 Albumin 3.0 L - Imaging Impressions Foot X-Ray 02/11/18 20:06 CONCLUSION: Bony destruction distal phalanx second toe most characteristic of osteomyelitis. Caprini VTE Risk Assessment Caprini VTE Risk Assessment: No/Low Risk (score <= 1) Caprini Risk Assessment Model: Point Value = 1 Point Value = 2 Point Value = 3 Point Value = 5 Age 41-60 Minor surgery BMI > 25 kg/m2 Swollen legs Varicose veins or History of unexplained or recurrent spontaneous Oral contraceptives or hormone replacement Sepsis (< 1 month) Serious lung disease, including pneumonia (< 1 month) Abnormal pulmonary function Acute myocardial infarction Congestive heart failure (< 1 month) History of inflammatory bowel disease Medical patient at bed rest Age 61-74 Arthroscopic surgery Major open surgery (> 45 min) Laparoscopic surgery (> 45 min) Malignancy Confined to bed (> 72 hours) Immobilizing plaster cast Central venous access Age >= 75 History of VTE Family history of VTE Factor V Leiden Prothrombin [id number] Lupus anticoagulant Anticardiolipin antibodies Elevated serum homocysteine Heparin-induced thrombocytopenia Other congenital or acquired thrombophilia Stroke (< 1 month) Elective arthroplasty Hip, pelvis, or leg fracture Acute spinal cord injury (< 1 month) Prophylaxis Regimen: Total Risk Factor Score Risk Level Prophylaxis Regimen 0-1 Low Early ambulation 2 Moderate Order ONE of the following: *Sequential Compression Device (SCD) *Heparin 5000 units SQ BID 3-4 Higher Order ONE of the following medications: *Heparin 5000 units SQ TID *Enoxaparin/Lovenox 40 mg SQ daily (WT < 150 kg, CrCl > 30 mL/min) *Enoxaparin/Lovenox 30 mg SQ daily (WT < 150 kg, CrCl > 10-29 mL/min) *Enoxaparin/Lovenox 30 mg SQ BID (WT < 150 kg, CrCl > 30 mL/min) AND/OR *Sequential Compression Device (SCD) 5 or more Highest Order ONE of the following medications: *Heparin 5000 units SQ TID (Preferred with Epidurals) *Enoxaparin/Lovenox 40 mg SQ daily (WT < 150 kg, CrCl > 30 mL/min) *Enoxaparin/Lovenox 30 mg SQ daily (WT < 150 kg, CrCl > 10-29 mL/min) *Enoxaparin/Lovenox 30 mg SQ BID (WT < 150 kg, CrCl > 30 mL/min) AND *Sequential Compression Device (SCD) Assessment and Plan - Assessment (1) Osteomyelitis of toe of right foot Code(s): M86.9 - Osteomyelitis, unspecified Status: Acute - Plan Osteomyelitis of the right foot second toe -X-ray does indicate a structural process indicative of osteomyelitis of the distal second digit of the right foot -Patient will be continued on vancomycin and Zosyn -Podiatry consulted for further recommendations -We will obtain ROSALBA studies -Obtain C-reactive protein and sed rate Diabetes -Accu-Cheks with sliding scale insulin Chronic obstructive pulmonary disease -Patient currently active tobacco user -O2 supplementation maintain O2 sat greater than 90% -Duo nebs as needed DVT prevention -Sequential compression devices
--- NOTE | 2018-02-12 17:26 | CT ---
EXAM DATE: 02/12/2018 5:02 PM EDT AGE/SEX: 58 years / Male INDICATIONS: Osteomyelitis of right second toe with significant edema and erythema. Evaluate for per ipheral vascular disease. CLINICAL DATA: This is the patient's initial encounter. Patient reports that signs and symptoms have been present for 2 months and indicates a pain score of 5/10. MEDICAL/SURGICAL HISTORY: Chronic obstructive pulmonary disease. Diabetes. Appendectomy. Hernia re pair. RADIATION DOSE: 12.03 CTDI (mGy) COMPARISON: No prior exams available for comparison. TECHNIQUE: Volumetric scanning was performed using a multi-row detector CT scanner during bolus infu tim of 95 ml Omnipaque 350 (iohexol) nonionic water-soluble contrast as a single exam dose. The d rochelle was post processed with a variety of visualization algorithms including full volume maximum inten sity projection, multi-planar sliding thin slab reformation, curved planar reformation, and surface r endering techniques. Using automated exposure control and adjustment of the mA and/or kV according t o patient size, radiation dose was kept as low as reasonably achievable to obtain optimal diagnostic quality images. DICOM format image data is available electronically for review and comparison. FINDINGS: The abdominal aorta has normal caliber without evidence for aneurysm or dissection celiac, superior m esenteric and inferior mesenteric arteries are patent. Both renal arteries are patent. There is mild calcific plaque at the aortic bifurcation and extending into the iliac arteries bilater ally. External and internal iliac arteries are patent. There is mild plaque formation in both common femoral arteries with mild stenosis. Both superficial femoral and popliteal arteries are patent. There is two-vessel runoff bilaterally at the ankles. There is bony destructive change of the distal phalanx second toe as seen on recent radiograph charac teristic of osteomyelitis. No acute findings in the liver, spleen, adrenals, kidneys or pancreas. No calcified gallstones or robert iary ductal dilatation. There is mild constipation. Colonic diverticulosis without evidence for diverticulitis. CONCLUSION: 1. Mild stenosis at the common femoral arteries bilaterally. No hemodynamically significant stenosis identified on CTA runoff. 2 vessel runoff at the ankles. 2. Severe colonic diverticulosis without diverticulitis. 3. Previous bilateral hernia repair. 4. Bony destruction distal phalanx second toe most characteristic of osteomyelitis. Electronically signed by: Dae Jose MD 02/12/2018 5:25 PM EDT
[2018-02-13] MEDS ORDERED: [UNRECOGNIZED DRUG - REMARK] OTHER ONE (03:45)
[2018-02-13] MEDS: Sod Chloride 0.9% Inj 1,000 ML IV.CONT SCH ×2 (04:38→15:10)
[2018-02-13] MEDS: Piperacil/Tazo 4.5 GM Premix 4.5 GM/100 ML BAG IV.SIG SCH ×4 (04:39→21:33)
[2018-02-13] MEDS: Vancomycin Inj 2,000 MG in Sodium Chlor 0.9% Inj 500 ML IV.SIG SCH ×2 (05:32→16:20)
--- NOTE | 2018-02-13 07:53 | MB ---
cc: Ariane Nicolas DPM DATE: 02/12/2018 CHIEF COMPLAINT: Right second digit osteomyelitis. HISTORY OF PRESENT ILLNESS: Mr. Cruz is a 58-year-old male patient who has known osteomyelitis of the right second digit with an infection that spans back to early November. He has been seen in 2 different ERs and given antibiotics, but has not had any apparent follow through. The patient states that he has pain in the foot, but denies any nausea, vomiting, fever, headaches or chills. PAST MEDICAL HISTORY: Includes COPD, diabetes, sleep apnea. PAST SURGICAL HISTORY: Includes an appendectomy and hernia repair. FAMILY HISTORY: Noncontributory. SOCIAL HISTORY: The patient currently smokes a pack a day and drinks on a nearly daily basis. ALLERGIES: NO KNOWN DRUG ALLERGIES. MEDICATIONS: Please see list. PHYSICAL EXAMINATION: VITAL SIGNS: Temperature is 97.3, pulse is 69, respiratory rate 18, blood pressure 127/81, pulse oximetry 96% O2 on room air. EXTREMITIES: The patient has diminished DP and PT pulses. Capillary refill time less than 3 seconds. Gross sensation is severely diminished. Left foot is unremarkable. The right second digit is very edematous and there is erythema extending beyond the level of the MPJ, encompassing the entire second digit. No open wounds, but there is thick callusing with dried blood underneath the distal aspect of the right second digit. LABORATORY DATA: White count is 4.2, hemoglobin 15.4, hematocrit 46.1, platelets 182. Sodium 138, potassium 3.9, chloride 104, carbon dioxide 30.1, BUN 8. X-rays show bony erosion on the distal aspect of the right second digit. No gas in the soft tissues. ASSESSMENT AND PLAN: Right second digit osteomyelitis. The patient needs a toe amputation, but will first need a vascular evaluation. ABIs pending. Vascular consultation pending. We will plan for surgery once the patient is fully optimized. Continue IV antibiotics. Thank you for this consultation. Ariane Nicolas DPM LMW/lc , 12:13 PM , 12:18 PM
[2018-02-13] MEDS: Insulin NovoLOG Aspart Correctional Sugar Inj SQ SCH ×4 (07:55→20:37)
--- NOTE | 2018-02-13 09:40 | P.PN ---
Subjective Interval history: 38-year-old male who is seen and examined today for follow-up on osteomyelitis of the right foot second digit. Patient resting comfortably in bed. Denies any new complaints. Podiatry indicating surgical intervention once patient is fully optimized. Vital signs are stable. Patient remains afebrile. Physical Exam Vital signs: Vital Signs 02/12/18 12:00 02/12/18 15:59 02/12/18 20:00 Temperature 97.5 F L 98.3 F 96.9 F L Pulse Rate 66 65 59 L Respiratory Rate 18 18 18 Blood Pressure 117/74 124/83 133/83 Pulse Oximetry 95 96 97 02/12/18 22:20 02/13/18 00:00 02/13/18 04:38 Temperature 96.4 F L Pulse Rate 52 L Respiratory Rate 18 18 18 Blood Pressure 119/76 Pulse Oximetry 97 Intake & Output 02/12/18 02/13/18 02/13/18 18:59 06:59 18:59 Intake Total 2141 / 2141 2200 / 2200 540 / 540 Output Total 1800 / 1800 1100 / 1100 Balance 341 / 341 1100 / 1100 540 / 540 Weight 95 kg Intake: IV 2141 / 2141 1200 / 1200 540 / 540 NS Inj 1,000 ML @ 100 mls/hr IV 1841 / 1841 1000 / 1000 .CONT .Q10H [facility] Rx#:[id number] Zosyn 4.5 GM Premix 4.5 gm In 300 / 300 200 / 200 100 ml @ 200 mls/hr IV.SIG Q6H [facility] Rx#:[id number] Vancomycin Inj 2,000 MG In NS 540 / 540 Inj 500 ML @ 250 mls/hr IV.SIG Q24H [facility] Rx#:[id number] Oral 1000 / 1000 Output: Urine 1800 / 1800 1100 / 1100 Other: # Bowel Movements 0 Narrative: GENERAL: Well-developed, well-nourished, in no acute distress. alert and orientated HEENT: Head is normocephalic without any lesions or masses noted. Facial features are symmetric. Eyes: Extraocular muscles are intact. Conjunctivae were clear. NECK: Supple without any masses. Trachea midline no deviation. No JVD, CARDIAC: Regular rhythm, regular rate. S1/S2 are heard. No murmurs gallops or rubs. LUNGS: Clear to auscultation bilaterally. No wheeze, rhonchi or rales. No use of accessory muscles on inspiration or expiration. ABDOMEN: Soft, nontender. Nondistended. Bowel sounds heard in all 4 quadrants. No organomegaly or masses. Negative rebound, negative guarding EXTREMITIES: No edema, pulses are equal bilaterally. No cyanosis or clubbing NEUROLOGY: Mood and affect appear appropriate. Cranial nerves II through XII grossly intact. Moving all extremities, speech is clear RIGHT FOOT: Second digit has significant edema, erythema, there is a puncture wound noted at the very tip of his toe. Patient does have skin peeling off from around the toe. Results - Labs CBC & Chem 7: 02/12/18 07:00 02/12/18 07:00 Laboratory Results - last 24 hr 02/12/18 02/12/18 02/12/18 07:00 07:00 11:20 ESR 17 POC Glucose 277 H C-Reactive Protein 7.03 H 02/12/18 02/12/18 02/13/18 16:59 21:54 07:32 ESR POC Glucose 88 134 H 93 C-Reactive Protein - Imaging Impressions Aorta w/Runoff CTA 02/12/18 00:00 CONCLUSION: 1. Mild stenosis at the common femoral arteries bilaterally. No hemodynamically significant stenosis identified on CTA runoff. 2 vessel runoff at the ankles. 2. Severe colonic diverticulosis without diverticulitis. 3. Previous bilateral hernia repair. 4. Bony destruction distal phalanx second toe most characteristic of osteomyelitis. Assessment and Plan - Assessment (1) Osteomyelitis of toe of right foot Code(s): M86.9 - Osteomyelitis, unspecified Status: Acute - Plan Osteomyelitis of the right foot second toe -X-ray does indicate a structural process indicative of osteomyelitis of the distal second digit of the right foot -Patient will be continued on vancomycin and Zosyn -Podiatry consulted and recommended surgical intervention when patient is optimized -Sed rate is normal with elevated C-reactive protein -Awaiting ROSALBA studies -CTA runoff performed please see results -Podiatry consulted vascular surgery for further recommendations -Vascular surgery requesting that the patient be transferred to the [facility] hospital for evaluation Diabetes -Accu-Cheks with sliding scale insulin Chronic obstructive pulmonary disease -Patient currently active tobacco user -O2 supplementation maintain O2 sat greater than 90% -Duo nebs as needed DVT prevention -Sequential compression devices
--- NOTE | 2018-02-13 10:16 | P.PNVS ---
Subjective Subjective/Hospital Course: 58/M with a hx of a non healing wound and diminished distal pulses Podiartry planning intervention post evaluation CTA reviewed Ordered a patient transfer for an evaluation and potential revascularization Discussed case with Kevyn Giles Objective Vital Signs / I&O: Vital Signs 02/12/18 12:00 02/12/18 15:59 02/12/18 20:00 Temperature 97.5 F L 98.3 F 96.9 F L Pulse Rate 66 65 59 L Respiratory Rate 18 18 18 Blood Pressure 117/74 124/83 133/83 Pulse Oximetry 95 96 97 02/12/18 22:20 02/13/18 00:00 02/13/18 04:38 Temperature 96.4 F L Pulse Rate 52 L Respiratory Rate 18 18 18 Blood Pressure 119/76 Pulse Oximetry 97 02/13/18 08:00 Temperature 97 F L Pulse Rate 63 Respiratory Rate 20 Blood Pressure 174/98 H Pulse Oximetry 96 Intake & Output 02/12/18 02/13/18 02/13/18 18:59 06:59 18:59 Intake Total 2141 / 2141 2200 / 2200 540 / 540 Output Total 1800 / 1800 1100 / 1100 Balance 341 / 341 1100 / 1100 540 / 540 Weight 95 kg Intake: IV 2141 / 2141 1200 / 1200 540 / 540 NS Inj 1,000 ML @ 100 mls/hr IV 1841 / 1841 1000 / 1000 .CONT .Q10H [facility] Rx#:[id number] Zosyn 4.5 GM Premix 4.5 gm In 300 / 300 200 / 200 100 ml @ 200 mls/hr IV.SIG Q6H [facility] Rx#:[id number] Vancomycin Inj 2,000 MG In NS 540 / 540 Inj 500 ML @ 250 mls/hr IV.SIG Q24H [facility] Rx#:[id number] Oral 1000 / 1000 Output: Urine 1800 / 1800 1100 / 1100 Other: # Bowel Movements 0 Laboratory Results - last 24 hr 02/12/18 02/12/18 02/12/18 07:00 11:20 16:59 ESR 17 POC Glucose 277 H 88 02/12/18 02/13/18 21:54 07:32 ESR POC Glucose 134 H 93 Impressions Foot X-Ray 02/11/18 20:06 CONCLUSION: Bony destruction distal phalanx second toe most characteristic of osteomyelitis. Aorta w/Runoff CTA 02/12/18 00:00 CONCLUSION: 1. Mild stenosis at the common femoral arteries bilaterally. No hemodynamically significant stenosis identified on CTA runoff. 2 vessel runoff at the ankles. 2. Severe colonic diverticulosis without diverticulitis. 3. Previous bilateral hernia repair. 4. Bony destruction distal phalanx second toe most characteristic of osteomyelitis. Assessment and Plan - Plan Plan Transfer pt from [facility] to [facility] Recommendations to follow
--- NOTE | 2018-02-13 19:10 | ECHRPT ---
EXAM DATE: 02/13/2018 6:51 PM EDT AGE/SEX: 58 years / Male INDICATIONS: osteomyelitis CLINICAL DATA: This is the patient's initial encounter. Patient reports that signs and symptoms have been present for 1 week and indicates a pain score of 2/10. MEDICAL/SURGICAL HISTORY: . COPD, diabetes mellitus, sleep apnea . appendectomy, hernia COMPARISON: [facility], CTA RUNOFF W CONTRAST W 3D, 02/12/2018. . TECHNIQUE: Four-cuff ankle and brachial pressures were obtained. Pulse cuff waveform tracings of the ankles were recorded, and ankle-brachial indices were calculated. PRESSURES (mmHg): Brachial (arm) : RIGHT: 124, LEFT: IV SITE Ankle : RIGHT: 148, LEFT: 138 ROSALBA : RIGHT: 1.19, LEFT: 1.11 RIGHT: , LEFT: FINDINGS: Pulsed-Cuff Waveform: There are good upstroke and a dicrotic downstroke of the tracings. Other: None. CONCLUSION: 1. Normal range ankle-brachial indices bilaterally. Electronically signed by: Armando Willson MD 02/13/2018 7:08 PM EDT
[2018-02-14] MEDS: Sod Chloride 0.9% Inj 1,000 ML IV.CONT SCH ×3 (00:18→23:31)
[2018-02-14 03:54] LABS: Glomerular Filtration Rate Greater Than 89 mL/min (>89)
[2018-02-14] MEDS: Vancomycin Inj 2,000 MG in Sodium Chlor 0.9% Inj 500 ML IV.SIG SCH (04:29)
[2018-02-14] MEDS: Piperacil/Tazo 4.5 GM Premix 4.5 GM/100 ML BAG IV.SIG SCH ×2 (06:14→09:31)
[2018-02-14] MEDS: Insulin NovoLOG Aspart Correctional Sugar Inj SQ SCH ×4 (07:35→20:46)
[2018-02-14] MEDS ORDERED: LORazepam 1 MG Tablet PO PRN (09:05)
[2018-02-14] MEDS ORDERED: Haloperidol Inj 5 MG/ML Ampul IV.PUSH PRN (09:05)
--- NOTE | 2018-02-14 11:02 | P.CONVS ---
History of Present Illness Service: Cardiovascular Consult date: 02/14/18 Reason for Consult: Non healing foot wound Primary Care Provider: No Primary Care Physician Chief Complaint: Toe pain History of Present Illness: 58/M with a PMH of COPD and DM presented to the ED for a non healing 4th toe wound for a duration of weeks pt states Pt denied claudication or rest pain Pt denied fever or chills CTA obtained and reviewed Review of Systems Constitutional: Denies chills, Denies fever(s), Denies weakness Cardiovascular: Reports foot swelling (R Foot) Skin/Breast: Reports non-healing lesions (R 4th digit toe (next to great toe) ) PMFSH - History History Provided By: Patient - Medical History Medical History: Medical History (Last Reviewed 02/14/18 @ 10:53 by Leydi Couch) COPD (chronic obstructive pulmonary disease) Diabetes Sleep apnea - Surgical History Surgical History: Surgical History (Last Reviewed 02/14/18 @ 10:53 by Leydi Couch) Hx of appendectomy Hx of hernia repair - Family History Family History: Family History (Last Reviewed 02/14/18 @ 10:53 by Leydi Couch) Brother Family history of colon cancer Father Family history of diabetes mellitus Sister Family history of diabetes mellitus - Social History I have reviewed the patient's Social History: Yes - Tobacco History Second Hand Smoke Exposure: Yes Tobacco Use In Past 30 Days: Yes Smoking Status: Current every day smoker Tobacco Type: Cigarettes Packs Per Day: 1 - Alcohol History How Often Do You Have a Drink Containing Alcohol: 4 or more times a week ( Patient drinks at least 4 beers daily) - Substance Use History Substance History: Active Abuse - Substance Use Type Crack/Cocaine Status: Active Route Used: Inhalation - Travel History Recent Travel in the [facility] Within the Last 8 Weeks: No Recent Travel Out of the Country Within the Last 8 Weeks: No - Immunization History Tetanus Immunization: Unsure Hx Influenza Vaccine This Season: No Medications and Allergies Allergies Allergy/AdvReac Type Severity Reaction Status Date / Time No Known Allergies Allergy Verified 02/11/18 19:53 Home Medications Medication Instructions Recorded Confirmed Type metformin 1,000 mg PO BID 11/24/17 02/11/18 History Active Medications: Active Medications Hydrocodone Bitart/Acetaminophen ([place] 10/325) 1 tab PO Q6H PRN PRN Reason: PAIN SCALE 6 TO 10 Last Admin: 02/14/18 08:40 Dose: 1 tab Hydrocodone Bitart/Acetaminophen ([place] 5/325) 1 tab PO Q6H PRN PRN Reason: PAIN SCALE 1 TO 5 Al Hydroxide/Mg Hydroxide (Milk Of Magnesia Liq) 30 ml PO Q12H PRN PRN Reason: Mild Constipation Albuterol (Duoneb Neb (Prn)) 1 ampul NEB Q2HR NEB PRN PRN Reason: SHORTNESS OF BREATH/WHEEZING Bisacodyl (Dulcolax Supp) 10 mg RECTAL DAILY PRN PRN Reason: SEVERE CONSITIPATION Dextrose (D50w Vial) 50 ml IV.PUSH UNSCH PRN PRN Reason: PER HYPOGLYCEMIA PROTOCOL Enalaprilat (Vasotec Inj) 1.25 mg IV.PUSH Q6H PRN PRN Reason: SBP>160, DBP>90 Last Admin: 02/14/18 10:10 Dose: 1.25 mg Flumazenil (Romazecon Inj) 0.2 mg IV.PUSH Q1M PRN PRN Reason: OVERSEDATION Glucagon (Glucagon Inj) 1 mg OTHER PRN PRN PRN Reason: for Hypoglycemia Protocol Haloperidol Lactate (Haldol Inj) 1 mg IV.PUSH Q15M PRN PRN Reason: for severe agitation Piperacillin/Tazobactam/Dextrose (Zosyn 4.5 Gm Premix) 4.5 gm in 100 mls @ 200 mls/hr IV.SIG Q6H DEL Last Admin: 02/14/18 09:31 Dose: 100 mls/hr Sodium Chloride (Ns Inj) 1,000 mls @ 100 mls/hr IV.CONT .Q10H DEL Last Admin: 02/14/18 09:22 Dose: 100 mls/hr Vancomycin HCl 2,000 mg/ (Sodium Chloride) 520 mls @ 250 mls/hr IV.SIG Q12H DEL Last Infusion: 02/14/18 07:00 Dose: Infused Insulin Aspart (Novolog Insulin Correctional Sugar Inj) 0 unit SQ ACHS DEL; Protocol Last Admin: 02/14/18 07:35 Dose: Not Given Lactulose (Lactulose Liq) 30 ml PO DAILY PRN PRN Reason: SEVERE CONSITIPATION Lorazepam (Ativan) 1 mg PO Q4H PRN PRN Reason: for CIWA 8-10 Lorazepam (Ativan Inj) 2 mg IV.PUSH Q2H PRN PRN Reason: for CIWA 11-14 Lorazepam (Ativan Inj) 2 mg IV.PUSH Q1H PRN PRN Reason: for CIWA 15-20 Lorazepam (Ativan Inj) 2 mg IV.PUSH Q15M PRN PRN Reason: for CIWA > 20 Lorazepam (Ativan Inj) 1 mg IV.PUSH Q4H PRN PRN Reason: for CIWA 8-10 Lorazepam (Ativan) 2 mg PO Q2H PRN PRN Reason: for CIWA 11-14 Miscellaneous Information ([facility] Ordered Lab Info) 0 each OTHER ONCE ONE Stop: 02/15/18 02:46 Pharmacy Profile Note (Vancomycin Consult Pharmacy) 1 each OTHER UNSCH PRN PRN Reason: Pharmacy to dose Sennosides (Senokot) 17.2 mg PO Q12H PRN PRN Reason: Moderate Constipation Physical Exam Vital Signs / I&O: Vital Signs 02/13/18 12:00 02/13/18 16:00 02/13/18 17:52 Temperature 96.6 F L 96.6 F L 98.1 F Pulse Rate 60 60 64 Respiratory Rate 20 20 20 Blood Pressure 149/84 H 166/94 H 176/102 H Pulse Oximetry 92 L 97 97 02/13/18 20:00 02/13/18 23:48 02/13/18 23:59 Temperature 98.1 F 97.8 F Pulse Rate 61 57 L Respiratory Rate 17 18 Blood Pressure 155/98 H 187/101 H 178/98 H Pulse Oximetry 98 95 02/14/18 03:07 02/14/18 08:00 02/14/18 10:08 Temperature 97.5 F L 97.9 F Pulse Rate 62 59 L Respiratory Rate 18 18 Blood Pressure 158/93 H 182/122 H 174/105 H Pulse Oximetry 93 L 95 02/14/18 10:43 Temperature Pulse Rate Respiratory Rate Blood Pressure 170/102 H Pulse Oximetry Intake & Output 02/13/18 02/14/18 02/14/18 18:59 06:59 18:59 Intake Total 1989 1700 / 1700 620 / 620 Balance 1989 1700 / 1700 620 / 620 Weight 100.6 kg 98.6 kg Intake: IV 1989 1100 / 1100 620 / 620 NS Inj 1,000 ML @ 100 mls/hr IV 1000 / 1000 1000 / 1000 .CONT .Q10H DEL Rx#:[id number] Zosyn 4.5 GM Premix 4.5 gm In 200 / 200 100 / 100 100 / 100 100 ml @ 200 mls/hr IV.SIG Q6H DEL Rx#:[id number] Vancomycin Inj 2,000 MG In NS 790 / 790 520 / 520 Inj 500 ML @ 250 mls/hr IV.SIG Q12H DEL Rx#:[id number] Oral 600 / 600 Other: # Voids 5 # Bowel Movements 1 Neuro: A&OX3 Speech clear HEENT: No JVD distention Vascular: Palpable R/L DP/PT 2+ Extremities: UE 5/5 LE 5/5 Laboratory Results - last 24 hr 02/13/18 02/13/18 02/13/18 03:35 10:58 16:23 Creatinine Estimated GFR POC Glucose 143 H 95 Vancomycin Trough 5.0 02/13/18 02/14/18 02/14/18 20:15 03:15 07:14 Creatinine 0.73 Estimated GFR Greater than 89 POC Glucose 160 H 96 Vancomycin Trough Microbiology 02/13/18 10:49 Gram Stain - Final Wound - Toe Impressions Aorta w/Runoff CTA 02/12/18 00:00 CONCLUSION: 1. Mild stenosis at the common femoral arteries bilaterally. No hemodynamically significant stenosis identified on CTA runoff. 2 vessel runoff at the ankles. 2. Severe colonic diverticulosis without diverticulitis. 3. Previous bilateral hernia repair. 4. Bony destruction distal phalanx second toe most characteristic of osteomyelitis. Extremity Arterial Study 02/12/18 00:00 CONCLUSION: 1. Normal range ankle-brachial indices bilaterally. Assessment and Plan - Plan 58/M with a hx of a non healing R foot wound (osteo), Podiatry planning intervention CTA reviewed- No hemodynamically significant stenosis identified on CTA runoff Pt with 2+ palpable distal pulses By exam and CTA- pt is w/ adequate LE perfusion Plan Pt clear for surgical intervention as pt is w/ adequate LE perfusion Leydi Couch [employer]UCING [employer] ATTENDANT [facility] [phone] - Attending Attestation I saw and examined the patient. I agree with the REDUCING SALON ATTENDANT assessment and plan. Date of service Thank you for allowing us to participate in the patient's care Tirso Monique MD [facility] [phone]
--- NOTE | 2018-02-14 11:43 | P.PN ---
Subjective Interval history: Patient doing well, tolerating p.o., voiding/stooling well. No overnight events per RN. Physical Exam Vital signs: Vital Signs 02/13/18 12:00 02/13/18 16:00 02/13/18 17:52 Temperature 96.6 F L 96.6 F L 98.1 F Pulse Rate 60 60 64 Respiratory Rate 20 20 20 Blood Pressure 149/84 H 166/94 H 176/102 H Pulse Oximetry 92 L 97 97 02/13/18 20:00 02/13/18 23:48 02/13/18 23:59 Temperature 98.1 F 97.8 F Pulse Rate 61 57 L Respiratory Rate 17 18 Blood Pressure 155/98 H 187/101 H 178/98 H Pulse Oximetry 98 95 02/14/18 03:07 02/14/18 08:00 02/14/18 10:08 Temperature 97.5 F L 97.9 F Pulse Rate 62 59 L Respiratory Rate 18 18 Blood Pressure 158/93 H 182/122 H 174/105 H Pulse Oximetry 93 L 95 02/14/18 10:43 Temperature Pulse Rate Respiratory Rate Blood Pressure 170/102 H Pulse Oximetry Intake & Output 02/13/18 02/14/18 02/14/18 18:59 06:59 18:59 Intake Total 1989 1700 / 1700 620 / 620 Balance 1989 1700 / 1700 620 / 620 Weight 100.6 kg 98.6 kg Intake: IV 1989 1100 / 1100 620 / 620 NS Inj 1,000 ML @ 100 mls/hr IV 1000 / 1000 1000 / 1000 .CONT .Q10H DEL Rx#:[id number] Zosyn 4.5 GM Premix 4.5 gm In 200 / 200 100 / 100 100 / 100 100 ml @ 200 mls/hr IV.SIG Q6H DEL Rx#:[id number] Vancomycin Inj 2,000 MG In NS 790 / 790 520 / 520 Inj 500 ML @ 250 mls/hr IV.SIG Q12H DEL Rx#:[id number] Oral 600 / 600 Other: # Voids 5 # Bowel Movements 1 Narrative: GENERAL: Well-nourished male, poorly groomed, in no acute distress, lying comfortably in bed SKIN: Warm and dry. HEENT: Normocephalic. Atraumatic. No scleral icterus. No injection or drainage. PERRLA, MOM. NECK: Supple, trachea midline. No JVD or lymphadenopathy. CARDIOVASCULAR: Regular rate and rhythm without murmurs, gallops, or rubs. RESPIRATORY: CTA x2, no accessory muscle use. GASTROINTESTINAL: Abdomen soft, non-tender, nondistended. MUSCULOSKELETAL: No cyanosis, or edema. BACK: Nontender without obvious deformity. No CVA tenderness. RIGHT FOOT: Second digit has significant edema and erythema, small puncture wound noted at the very tip of his toe. No drainage. NEURO: AAO x3, no focal deficits, motor strength 5/5 x 4, speech is clear Results - Labs CBC & Chem 7: 02/14/18 12:15 02/14/18 12:15 Laboratory Results - last 24 hr 02/13/18 02/13/18 02/13/18 03:35 16:23 20:15 Creatinine Estimated GFR POC Glucose 95 160 H Vancomycin Trough 5.0 02/14/18 02/14/18 03:15 07:14 Creatinine 0.73 Estimated GFR Greater than 89 POC Glucose 96 Vancomycin Trough Microbiology 02/13/18 10:49 Wound - Toe Gram Stain - Final - Imaging Impressions Extremity Arterial Study 02/12/18 00:00 CONCLUSION: 1. Normal range ankle-brachial indices bilaterally. Assessment and Plan - Assessment (1) Osteomyelitis of toe of right foot Code(s): M86.9 - Osteomyelitis, unspecified Status: Acute - Plan This is a 58 y/o CM with PMHx of COPD transferred from [place] for inpatient management of Osteomyelitis of the R second toe requiring vascular surgery recommendations prior to podiatric surgical interventions, HD#4 1. Osteomyelitis of the Right Foot Second Toe Foot XR 02/13: Bony destruction distal phalanx second toe most characteristic of osteomyelitis. Continue Vancomycin and Zosyn started on 02/11 Will consult ID today for assistance with mgmt of ABX CRP 1.50 today from 7.03 on 02/12 Wound Cx 02/13: No growth, final Blood cultures ordered today Podiatry consulted and recommended surgical intervention when patient is optimized, cleared by Vascular for surgery Normal ROSALBA studies on 02/12 Podiatry consulted vascular surgery for further recommendations Cont. [place] PRN Reccs per Vascular Sx 02/13: 58/M with a hx of a non healing R foot wound (osteo), Podiatry planning intervention CTA reviewed- No hemodynamically significant stenosis identified on CTA runoff Pt with 2+ palpable distal pulses By exam and CTA- pt is w/ adequate LE perfusion Pt clear for surgical intervention as pt is w/ adequate LE perfusion 2. Diabetes Mellitus type II BS stable Cont. Accu-Cheks with sliding scale insulin (holding home Metformin) 3. HTN Poorly controlled, asymptomatic Not on home meds Starting Norvasc today Cont. Clonidine and Vasotec PRN 4. COPD/Tobacco Abuse Not on home O2 Encouraged cessation of smoking with risks involved Cont. Duonebs PRN 5. DVT PPX: SCD's 6. Dispo: Monitor blood pressure, started on Norvasc today. Follow-up ID and podiatry recommendations. Will call podiatry to ask about surgery timing so that patient is NPO when necessary. Code Status: full Discussed Condition With: patient, RN
[2018-02-14] MEDS: amLODIPine 5 MG Tablet PO SCH (11:54)
[2018-02-14 13:08] LABS: Baso % (Auto) 0.7 % (0.0-2.0); Eos # (Auto) 0.1 th/mm3 (0.0-0.4); Eos % (Auto) 2.4 % (0.0-4.0); Hematocrit 47.1 % (39.0-51.0); Hemoglobin 16.1 gm/dL (13.0-17.0); Lymph # (Auto) 1.1 th/mm3 (1.0-4.8); Lymph % (Auto) 26.7 % (9.0-44.0); Mean Corpuscular HGB Conc 34.2 % (32.0-36.0); Mean Corpuscular Hemoglobin 32.3 pg (27.0-34.0); Mean Corpuscular Volume 94.5 fL (80.0-100.0); Mean Platelet Volume 7.2 fL (7.0-11.0); Mono # (Auto) 0.3 th/mm3 (0.0-0.9); Mono % (Auto) 7.5 % (0.0-8.0); Neut # (Auto) 2.5 th/mm3 (1.8-7.7); Neut % (Auto) 62.7 % (16.0-70.0); Platelet Count 190 th/mm3 (150-450); Red Blood Count 4.98 mil/mm3 (4.50-5.90); Red Cell Distribution Width 13.2 % (11.6-17.2)
[2018-02-14 13:20] LABS: Albumin 2.8 g/dL (3.4-5.0); Anion Gap 4 meq/L (5-15); Aspartate Aminotransferase 23 U/L (15-37); Blood Urea Nitrogen 9 mg/dL (7-18); Calcium 8.7 mg/dL (8.5-10.1); Carbon Dioxide 33.6 meq/L (21.0-32.0); Chloride 100 meq/L (98-107); Glomerular Filtration Rate Greater Than 89 mL/min (>89); Glucose,Random 96 mg/dL (74-106); Hemoglobin A1c 5.4 % (4.3-6.0); Sodium 138 meq/L (136-145)
[2018-02-14 13:24] LABS: Alanine Aminotransferase 26 U/L (12-78); Alkaline Phosphatase 67 U/L (45-117)
--- NOTE | 2018-02-14 13:40 | P.CONID ---
History of Present Illness Service: Infectious Disease Consult date: 02/14/18 Requesting Physician: Bernadette Redmond Reason for Consult: Evaluation and Mment of infected toe, osteomyelitis Primary Care Provider: No Primary Care Physician Chief Complaint: Toe pain History of Present Illness: is a 58 y/o CM with PMHx of DM unsure compliance status as has no PCP. He presents to the hospital with complains of right 2nd toe pain. He states that he has been having problems with his right foot second toe for quite some time now. The patient did come to the emergency department to [place] on 11/24/17 for his toe. At that time he states that a piece of the tip of his toe came off on its own. Patient indicated that he got frustrated about the care he received in the emergency department, he was given a prescription for antibiotics but he did not take them. He went to [facility] and was evaluated there and he states that he was given 3 different antibiotics which he took, but he does not remember the names of the antibiotics. The patient states that his toe got progressively worse so he came to the emergency department again. During this admission a workup was done which did indicate osteomyelitis of the right foot second digit. Patient did have previous cultures taken back from November 2017 which did show Enterococcus faecalis infection. Patient does not have any signs of sepsis. He is afebrile, no leukocytosis. His ESR is normal but CRP is elevated. At the time of my evaluation patient is in on regular floor. visited the patient along with me. The 2nd right toe was definitely swollen but there was no obvious ulcer. There was a scab at the tip of the toe and the toe nail was blackening. Infectious Disease Consultation requested for evaluation and Mment of osteomyelitis of right 2nd toe. Review of Systems All other systems reviewed negative except as stated in HPI PMFSH - History History Provided By: Patient - Medical History Medical History: Medical History (Last Reviewed 02/14/18 @ 10:53 by Leydi Couch) COPD (chronic obstructive pulmonary disease) Diabetes Sleep apnea - Surgical History Surgical History: Surgical History (Last Reviewed 02/14/18 @ 10:53 by Leydi Couch) Hx of appendectomy Hx of hernia repair - Family History Family History: Family History (Last Reviewed 02/14/18 @ 10:53 by Leydi Couch) Brother Family history of colon cancer Father Family history of diabetes mellitus Sister Family history of diabetes mellitus - Tobacco History Second Hand Smoke Exposure: Yes Tobacco Use In Past 30 Days: Yes Smoking Status: Current every day smoker Tobacco Type: Cigarettes Packs Per Day: 1 - Alcohol History How Often Do You Have a Drink Containing Alcohol: 4 or more times a week ( Patient drinks at least 4 beers daily) - Substance Use History Substance History: Active Abuse - Substance Use Type Crack/Cocaine Status: Active Route Used: Inhalation - Travel History Recent Travel in the [place] Within the Last 8 Weeks: No Recent Travel Out of the Country Within the Last 8 Weeks: No - Immunization History Tetanus Immunization: Unsure Hx Influenza Vaccine This Season: No Medications and Allergies Active Medications: Active Medications Hydrocodone Bitart/Acetaminophen ([place] 10/325) 1 tab PO Q6H PRN PRN Reason: PAIN SCALE 6 TO 10 Last Admin: 02/14/18 08:40 Dose: 1 tab Hydrocodone Bitart/Acetaminophen ([place] 5/325) 1 tab PO Q6H PRN PRN Reason: PAIN SCALE 1 TO 5 Al Hydroxide/Mg Hydroxide (Milk Of [place] Liq) 30 ml PO Q12H PRN PRN Reason: Mild Constipation Albuterol (Duoneb Neb (Prn)) 1 ampul NEB Q2HR NEB PRN PRN Reason: SHORTNESS OF BREATH/WHEEZING Amlodipine Besylate (Norvasc) 5 mg PO DAILY DEL Last Admin: 02/14/18 11:54 Dose: 5 mg Bisacodyl (Dulcolax Supp) 10 mg RECTAL DAILY PRN PRN Reason: SEVERE CONSITIPATION Clonidine HCl ([place]) 0.1 mg PO Q6H PRN PRN Reason: SBP>160, DBP >100 Dextrose (D50w Vial) 50 ml IV.PUSH UNSCH PRN PRN Reason: PER HYPOGLYCEMIA PROTOCOL Enalaprilat (Vasotec Inj) 1.25 mg IV.PUSH Q6H PRN PRN Reason: SBP>160, DBP>90 Last Admin: 02/14/18 10:10 Dose: 1.25 mg Flumazenil (Romazecon Inj) 0.2 mg IV.PUSH Q1M PRN PRN Reason: OVERSEDATION Glucagon (Glucagon Inj) 1 mg OTHER PRN PRN PRN Reason: for Hypoglycemia Protocol Haloperidol Lactate (Haldol Inj) 1 mg IV.PUSH Q15M PRN PRN Reason: for severe agitation Piperacillin/Tazobactam/Dextrose (Zosyn 4.5 Gm Premix) 4.5 gm in 100 mls @ 200 mls/hr IV.SIG Q6H DEL Last Infusion: 02/14/18 10:00 Dose: Infused Sodium Chloride (Ns Inj) 1,000 mls @ 100 mls/hr IV.CONT .Q10H [facility] Last Admin: 02/14/18 09:22 Dose: 100 mls/hr Vancomycin HCl 2,000 mg/ (Sodium Chloride) 520 mls @ 250 mls/hr IV.SIG Q12H [facility] Last Infusion: 02/14/18 07:00 Dose: Infused Insulin Aspart (Novolog Insulin Correctional Sugar Inj) 0 unit SQ ACHS [facility]; Protocol Last Admin: 02/14/18 11:54 Dose: 1 unit Lactulose (Lactulose Liq) 30 ml PO DAILY PRN PRN Reason: SEVERE CONSITIPATION Lorazepam (Ativan) 1 mg PO Q4H PRN PRN Reason: for CIWA 8-10 Lorazepam (Ativan Inj) 2 mg IV.PUSH Q2H PRN PRN Reason: for CIWA 11-14 Lorazepam (Ativan Inj) 2 mg IV.PUSH Q1H PRN PRN Reason: for CIWA 15-20 Lorazepam (Ativan Inj) 2 mg IV.PUSH Q15M PRN PRN Reason: for CIWA > 20 Lorazepam (Ativan Inj) 1 mg IV.PUSH Q4H PRN PRN Reason: for CIWA 8-10 Lorazepam (Ativan) 2 mg PO Q2H PRN PRN Reason: for CIWA 11-14 Miscellaneous Information ([facility] Ordered Lab Info) 0 each OTHER ONCE ONE Stop: 02/15/18 02:46 Pharmacy Profile Note (Vancomycin Consult Pharmacy) 1 each OTHER UNSCH PRN PRN Reason: Pharmacy to dose Sennosides (Senokot) 17.2 mg PO Q12H PRN PRN Reason: Moderate Constipation Allergies Allergy/AdvReac Type Severity Reaction Status Date / Time No Known Allergies Allergy Verified 02/11/18 19:53 Home Medications Medication Instructions Recorded Confirmed Type metformin 1,000 mg PO BID 11/24/17 02/11/18 History Exam Vital signs: Vital Signs 02/13/18 16:00 02/13/18 17:52 02/13/18 20:00 Temperature 96.6 F L 98.1 F 98.1 F Pulse Rate 60 64 61 Respiratory Rate 20 20 17 Blood Pressure 166/94 H 176/102 H 155/98 H Pulse Oximetry 97 97 98 02/13/18 23:48 02/13/18 23:59 02/14/18 03:07 Temperature 97.8 F 97.5 F L Pulse Rate 57 L 62 Respiratory Rate 18 18 Blood Pressure 187/101 H 178/98 H 158/93 H Pulse Oximetry 95 93 L 02/14/18 08:00 02/14/18 10:08 02/14/18 10:43 Temperature 97.9 F Pulse Rate 59 L Respiratory Rate 18 Blood Pressure 182/122 H 174/105 H 170/102 H Pulse Oximetry 95 02/14/18 11:50 02/14/18 12:00 Temperature 97.7 F Pulse Rate 60 Respiratory Rate 18 Blood Pressure 175/117 H 174/105 H Pulse Oximetry 98 Intake & Output 02/13/18 02/14/18 02/14/18 18:59 06:59 18:59 Intake Total 1989 1700 / 1700 720 / 720 Balance 1989 1700 / 1700 720 / 720 Weight 100.6 kg 98.6 kg Intake: IV 1989 1100 / 1100 720 / 720 NS Inj 1,000 ML @ 100 mls/hr IV 1000 / 1000 1000 / 1000 .CONT .Q10H DEL Rx#:[id number] Zosyn 4.5 GM Premix 4.5 gm In 200 / 200 100 / 100 200 / 200 100 ml @ 200 mls/hr IV.SIG Q6H DEL Rx#:[id number] Vancomycin Inj 2,000 MG In NS 790 / 790 520 / 520 Inj 500 ML @ 250 mls/hr IV.SIG Q12H DEL Rx#:[id number] Oral 600 / 600 Other: # Voids 5 # Bowel Movements 1 Narrative: GENERAL: Well-nourished well-developed, not in acute distress SKIN: Cool and dry, no generalized rash. Poorly kempt, soiled and dirty personal clothing. Hair and skin poorly kempt. HEAD: Atraumatic. Normocephalic. No temporal or scalp tenderness. EYES: Pupils equal round and reactive. Scleral icterus. No injection or drainage. No petechia ENT: Nothing abnormal detected NECK: Trachea midline. Supple, nontender, no meningeal signs. CARDIOVASCULAR: HS audible. RESPIRATORY: Clear to auscultation bilaterally. GASTROINTESTINAL: Abdomen soft nontender. MUSCULOSKELETAL: right 2nd toe swollen, no ulcer but a scan on tip of toe. Erythema noted. Nail on toe with some blackening noted. DP pulse palpable. Color of skin normal with good perfusion. NEUROLOGICAL: Alert oriented 3. Nonfocal. Psych cooperative IV line sites ok. Results - Labs CBC & Chem 7: 02/14/18 12:15 02/14/18 12:15 Labs: Laboratory Results - last 24 hr 02/13/18 02/13/18 02/14/18 16:23 20:15 03:15 WBC RBC Hgb Hct MCV MCH MCHC RDW Plt Count MPV Neut % (Auto) Lymph % (Auto) [place] % (Auto) Eos % (Auto) Baso % (Auto) Neut # (Auto) Lymph # (Auto) [place] # (Auto) Eos # (Auto) Baso # (Auto) WBC Differential Differential Comment Sodium Potassium Chloride Carbon Dioxide Anion Gap BUN Creatinine 0.73 Estimated GFR Greater than 89 POC Glucose 95 160 H Random Glucose Hemoglobin A1c Calcium Total Bilirubin AST ALT Alkaline Phosphatase C-Reactive Protein Total Protein Albumin 02/14/18 02/14/18 02/14/18 07:14 12:15 12:15 WBC 4.0 RBC 4.98 Hgb 16.1 Hct 47.1 MCV 94.5 MCH 32.3 MCHC 34.2 RDW 13.2 Plt Count 190 MPV 7.2 Neut % (Auto) 62.7 Lymph % (Auto) 26.7 [place] % (Auto) 7.5 Eos % (Auto) 2.4 Baso % (Auto) 0.7 Neut # (Auto) 2.5 Lymph # (Auto) 1.1 [place] # (Auto) 0.3 Eos # (Auto) 0.1 Baso # (Auto) 0.0 WBC Differential . Differential Comment Auto diff final Sodium 138 Potassium 4.0 Chloride 100 Carbon Dioxide 33.6 H Anion Gap 4 L BUN 9 Creatinine 0.82 Estimated GFR Greater than 89 POC Glucose 96 Random Glucose 96 Hemoglobin A1c Calcium 8.7 Total Bilirubin 0.5 AST 23 ALT 26 Alkaline Phosphatase 67 C-Reactive Protein 1.50 H Total Protein 7.0 Albumin 2.8 L 02/14/18 12:15 WBC RBC Hgb Hct MCV MCH MCHC RDW Plt Count MPV Neut % (Auto) Lymph % (Auto) [place] % (Auto) Eos % (Auto) Baso % (Auto) Neut # (Auto) Lymph # (Auto) [place] # (Auto) Eos # (Auto) Baso # (Auto) WBC Differential Differential Comment Sodium Potassium Chloride Carbon Dioxide Anion Gap BUN Creatinine Estimated GFR POC Glucose Random Glucose Hemoglobin A1c 5.4 Calcium Total Bilirubin AST ALT Alkaline Phosphatase C-Reactive Protein Total Protein Albumin - Imaging Impressions Extremity Arterial Study 02/12/18 00:00 CONCLUSION: 1. Normal range ankle-brachial indices bilaterally. Assessment and Plan - Plan Acute on chronic osteomyelitis of right 2nd toe. DM2 with uncontrolled hyperglycemia. Homelessness. Prior h/o non compliance with oral antibiotics x 2 ED visits. Recs: DC Zosyn IV DC Vanco IV Henrique Gay: NPO for amputation tomorrow at joint level causing disarticulation of joint. Will need to wait for Intra op bone biopsy and cultures to decide on antibiotic regimen. Unless patient grows an organism we can observe him off antibiotics. If change in clinical condition suggestive of sepsis ok to restart broad spectrum antibiotics. henrique Sierra hospitalist. Will follow on next if any change in interim please call sooner. No PICC till cleared by ID as hoping he can go home on oral antibiotics.
--- NOTE | 2018-02-14 21:30 | P.PNPOD ---
Subjective Interval history: Patient seen at bedside this pm with Dr Pizarro Right 2nd digit OM. Physical Exam Vital signs: Vital Signs 02/13/18 23:48 02/13/18 23:59 02/14/18 03:07 Temperature 97.8 F 97.5 F L Pulse Rate 57 L 62 Respiratory Rate 18 18 Blood Pressure 187/101 H 178/98 H 158/93 H Pulse Oximetry 95 93 L 02/14/18 08:00 02/14/18 10:08 02/14/18 10:43 Temperature 97.9 F Pulse Rate 59 L Respiratory Rate 18 Blood Pressure 182/122 H 174/105 H 170/102 H Pulse Oximetry 95 02/14/18 11:50 02/14/18 12:00 02/14/18 16:00 Temperature 97.7 F 97.3 F L Pulse Rate 60 67 Respiratory Rate 18 18 Blood Pressure 175/117 H 174/105 H 141/105 H Pulse Oximetry 98 98 02/14/18 20:00 Temperature 97.6 F Pulse Rate 82 Respiratory Rate 18 Blood Pressure 125/77 Pulse Oximetry 96 Intake & Output 02/14/18 02/14/18 02/15/18 06:59 18:59 06:59 Intake Total 1700 / 1700 1920 / 1920 Balance 1700 / 1700 1920 / 1920 Weight 98.6 kg Intake: IV 1100 / 1100 720 / 720 NS Inj 1,000 ML @ 100 mls/hr IV 1000 / 1000 .CONT .Q10H DEL Rx#:[id number] Zosyn 4.5 GM Premix 4.5 gm In 100 / 100 200 / 200 100 ml @ 200 mls/hr IV.SIG Q6H DEL Rx#:[id number] Vancomycin Inj 2,000 MG In NS 520 / 520 Inj 500 ML @ 250 mls/hr IV.SIG Q12H DEL Rx#:[id number] Oral 600 / 600 1200 / 1200 Other: # Voids 5 6 # Bowel Movements 1 1 Narrative: RLE Intact DP and PT Right 2nd digit with distal wound portal. No active drainage. + red, edema and sausage digit. No crepitus with ROM and no pain at the digit. Medications and Allergies Active Medications: Active Medications Hydrocodone Bitart/Acetaminophen ([place] 10/325) 1 tab PO Q6H PRN PRN Reason: PAIN SCALE 6 TO 10 Last Admin: 10/30/18 17:13 Dose: 1 tab Hydrocodone Bitart/Acetaminophen ([place] 5/325) 1 tab PO Q6H PRN PRN Reason: PAIN SCALE 1 TO 5 Al Hydroxide/Mg Hydroxide (Milk Of Magnesia Liq) 30 ml PO Q12H PRN PRN Reason: Mild Constipation Albuterol (Duoneb Neb (Prn)) 1 ampul NEB Q2HR NEB PRN PRN Reason: SHORTNESS OF BREATH/WHEEZING Amlodipine Besylate (Norvasc) 5 mg PO DAILY [facility] Last Admin: 02/14/18 11:54 Dose: 5 mg Bisacodyl (Dulcolax Supp) 10 mg RECTAL DAILY PRN PRN Reason: SEVERE CONSITIPATION Clonidine HCl (Catapres) 0.1 mg PO Q6H PRN PRN Reason: SBP>160, DBP >100 Dextrose (D50w Vial) 50 ml IV.PUSH UNSCH PRN PRN Reason: PER HYPOGLYCEMIA PROTOCOL Enalaprilat (Vasotec Inj) 1.25 mg IV.PUSH Q6H PRN PRN Reason: SBP>160, DBP>90 Last Admin: 02/14/18 10:10 Dose: 1.25 mg Flumazenil (Romazecon Inj) 0.2 mg IV.PUSH Q1M PRN PRN Reason: OVERSEDATION Glucagon (Glucagon Inj) 1 mg OTHER PRN PRN PRN Reason: for Hypoglycemia Protocol Haloperidol Lactate (Haldol Inj) 1 mg IV.PUSH Q15M PRN PRN Reason: for severe agitation Sodium Chloride (Ns Inj) 1,000 mls @ 100 mls/hr IV.CONT .Q10H [facility] Last Admin: 02/14/18 09:22 Dose: 100 mls/hr Insulin Aspart (Novolog Insulin Correctional Sugar Inj) 0 unit SQ ACHS [facility]; Protocol Last Admin: 02/14/18 20:46 Dose: 1 unit Lactulose (Lactulose Liq) 30 ml PO DAILY PRN PRN Reason: SEVERE CONSITIPATION Lorazepam (Ativan) 1 mg PO Q4H PRN PRN Reason: for CIWA 8-10 Lorazepam (Ativan Inj) 2 mg IV.PUSH Q2H PRN PRN Reason: for CIWA 11-14 Lorazepam (Ativan Inj) 2 mg IV.PUSH Q1H PRN PRN Reason: for CIWA 15-20 Lorazepam (Ativan Inj) 2 mg IV.PUSH Q15M PRN PRN Reason: for CIWA > 20 Lorazepam (Ativan Inj) 1 mg IV.PUSH Q4H PRN PRN Reason: for CIWA 8-10 Lorazepam (Ativan) 2 mg PO Q2H PRN PRN Reason: for CIWA 11-14 Miscellaneous Information ([facility] Ordered Lab Info) 0 each OTHER ONCE ONE Stop: 02/15/18 02:46 Sennosides (Senokot) 17.2 mg PO Q12H PRN PRN Reason: Moderate Constipation Allergies Allergy/AdvReac Type Severity Reaction Status Date / Time No Known Allergies Allergy Verified 02/11/18 19:53 Home Medications Medication Instructions Recorded Confirmed Type metformin 1,000 mg PO BID 11/24/17 02/11/18 History Results - Labs CBC & Chem 7: 02/14/18 12:15 02/14/18 12:15 Laboratory Results - last 24 hr 02/14/18 02/14/18 02/14/18 03:15 07:14 12:15 WBC 4.0 RBC 4.98 Hgb 16.1 Hct 47.1 MCV 94.5 MCH 32.3 MCHC 34.2 RDW 13.2 Plt Count 190 MPV 7.2 Neut % (Auto) 62.7 Lymph % (Auto) 26.7 [place] % (Auto) 7.5 Eos % (Auto) 2.4 Baso % (Auto) 0.7 Neut # (Auto) 2.5 Lymph # (Auto) 1.1 Warren # (Auto) 0.3 Eos # (Auto) 0.1 Baso # (Auto) 0.0 WBC Differential . Differential Comment Auto diff final Sodium Potassium Chloride Carbon Dioxide Anion Gap BUN Creatinine 0.73 Estimated GFR Greater than 89 POC Glucose 96 Random Glucose Hemoglobin A1c Calcium Total Bilirubin AST ALT Alkaline Phosphatase C-Reactive Protein Total Protein Albumin 02/14/18 02/14/18 02/14/18 12:15 12:15 17:28 WBC RBC Hgb Hct MCV MCH MCHC RDW Plt Count MPV Neut % (Auto) Lymph % (Auto) Warren % (Auto) Eos % (Auto) Baso % (Auto) Neut # (Auto) Lymph # (Auto) Warren # (Auto) Eos # (Auto) Baso # (Auto) WBC Differential Differential Comment Sodium 138 Potassium 4.0 Chloride 100 Carbon Dioxide 33.6 H Anion Gap 4 L BUN 9 Creatinine 0.82 Estimated GFR Greater than 89 POC Glucose 85 Random Glucose 96 Hemoglobin A1c 5.4 Calcium 8.7 Total Bilirubin 0.5 AST 23 ALT 26 Alkaline Phosphatase 67 C-Reactive Protein 1.50 H Total Protein 7.0 Albumin 2.8 L 02/14/18 20:22 WBC RBC Hgb Hct MCV MCH MCHC RDW Plt Count MPV Neut % (Auto) Lymph % (Auto) [place] % (Auto) Eos % (Auto) Baso % (Auto) Neut # (Auto) Lymph # (Auto) [place] # (Auto) Eos # (Auto) Baso # (Auto) WBC Differential Differential Comment Sodium Potassium Chloride Carbon Dioxide Anion Gap BUN Creatinine Estimated GFR POC Glucose 170 H Random Glucose Hemoglobin A1c Calcium Total Bilirubin AST ALT Alkaline Phosphatase C-Reactive Protein Total Protein Albumin Microbiology 02/13/18 10:49 Wound - Toe Gram Stain - Final 02/13/18 10:49 Wound - Toe Wound Culture - Preliminary Heavy growth normal skin connie at 24 hours Assessment and Plan - Assessment (1) Osteomyelitis of toe of right foot Code(s): M86.9 - Osteomyelitis, unspecified Status: Acute - Plan OR on 02/15/18 Failed oral abx x 2 Xrays + for OM at the distal phalanx of the right 2nd digit. Consent for right 2nd digit amputation. All questions answered.
[2018-02-15] MEDS ORDERED: VANCOMYCIN TROUGH OTHER ONE (02:45)
[2018-02-15] MEDS: Sod Chloride 0.9% Inj 1,000 ML IV.CONT SCH ×4 (04:48→21:39)
[2018-02-15] MEDS ORDERED: Metoprolol Tartrate 25 MG Tablet PO ONE (06:38)
[2018-02-15] MEDS ORDERED: Chlorhexidine Gluconate 2% 1 Pack (2 Cloths) TOPICAL ONE (06:38)
[2018-02-15] MEDS ORDERED: Sodium Chlor 0.9% Inj 500 ML IV.SIG SCH (07:00)
[2018-02-15] MEDS: Insulin NovoLOG Aspart Correctional Sugar Inj SQ SCH ×4 (07:48→20:40)
[2018-02-15] MEDS: amLODIPine 5 MG Tablet PO SCH ×2 (08:48→13:27)
--- NOTE | 2018-02-15 09:10 | P.PN ---
Subjective Interval history: Patient doing well. Patient has been n.p.o. since midnight, voiding/stooling well. Patient reports that he is ready for surgery. Physical Exam Vital signs: Vital Signs 02/14/18 10:08 02/14/18 10:43 02/14/18 11:50 Temperature Pulse Rate Respiratory Rate Blood Pressure 174/105 H 170/102 H 175/117 H Pulse Oximetry 02/14/18 12:00 02/14/18 16:00 02/14/18 20:00 Temperature 97.7 F 97.3 F L 97.6 F Pulse Rate 60 67 82 Respiratory Rate 18 18 18 Blood Pressure 174/105 H 141/105 H 125/77 Pulse Oximetry 98 98 96 02/15/18 00:00 02/15/18 03:54 Temperature 98.1 F 97.9 F Pulse Rate 76 60 Respiratory Rate 21 18 Blood Pressure 133/87 124/79 Pulse Oximetry 94 L 97 Intake & Output 02/14/18 02/15/18 02/15/18 18:59 06:59 18:59 Intake Total 1920 / 1920 1000 / 1000 1000 / 1000 Output Total 500 / 500 Balance 1920 / 1920 500 / 500 1000 / 1000 Weight 96.9 kg Intake: IV 720 / 720 1000 / 1000 1000 / 1000 NS Inj 1,000 ML @ 100 mls/hr IV 1000 / 1000 1000 / 1000 .CONT .Q10H DEL Rx#:[id number] Zosyn 4.5 GM Premix 4.5 gm In 200 / 200 100 ml @ 200 mls/hr IV.SIG Q6H DEL Rx#:[id number] Vancomycin Inj 2,000 MG In NS 520 / 520 Inj 500 ML @ 250 mls/hr IV.SIG Q12H DEL Rx#:[id number] Oral 1200 / 1200 Output: Urine 500 / 500 Other: # Voids 6 # Bowel Movements 1 Narrative: GENERAL: Well-nourished male, poorly groomed, in no acute distress, lying comfortably in bed SKIN: Warm and dry. HEENT: Normocephalic. Atraumatic. No scleral icterus. No injection or drainage. PERRLA, MOM. NECK: Supple, trachea midline. No JVD or lymphadenopathy. CARDIOVASCULAR: Regular rate and rhythm without murmurs, gallops, or rubs. RESPIRATORY: CTA x2, no accessory muscle use. GASTROINTESTINAL: Abdomen soft, non-tender, nondistended. BACK: Nontender without obvious deformity. No CVA tenderness. MUSCULOSKELETAL: right 2nd toe with erythema and edema, nail on toe with some blackening noted. DP pulse palpable. Color of skin normal with good perfusion. NEURO: AAO x3, no focal deficits, motor strength 5/5 x 4, speech is clear Results - Labs CBC & Chem 7: 02/15/18 09:18 02/15/18 09:18 Laboratory Results - last 24 hr 02/14/18 02/14/18 02/14/18 12:15 12:15 12:15 WBC 4.0 RBC 4.98 Hgb 16.1 Hct 47.1 MCV 94.5 MCH 32.3 MCHC 34.2 RDW 13.2 Plt Count 190 MPV 7.2 Neut % (Auto) 62.7 Lymph % (Auto) 26.7 [place] % (Auto) 7.5 Eos % (Auto) 2.4 Baso % (Auto) 0.7 Neut # (Auto) 2.5 Lymph # (Auto) 1.1 [place] # (Auto) 0.3 Eos # (Auto) 0.1 Baso # (Auto) 0.0 WBC Differential . Differential Comment Auto diff final Sodium 138 Potassium 4.0 Chloride 100 Carbon Dioxide 33.6 H Anion Gap 4 L BUN 9 Creatinine 0.82 Estimated GFR Greater than 89 POC Glucose Random Glucose 96 Hemoglobin A1c 5.4 Calcium 8.7 Total Bilirubin 0.5 AST 23 ALT 26 Alkaline Phosphatase 67 C-Reactive Protein 1.50 H Total Protein 7.0 Albumin 2.8 L 02/14/18 02/14/18 02/15/18 17:28 20:22 07:45 WBC RBC Hgb Hct MCV MCH MCHC RDW Plt Count MPV Neut % (Auto) Lymph % (Auto) [place] % (Auto) Eos % (Auto) Baso % (Auto) Neut # (Auto) Lymph # (Auto) [place] # (Auto) Eos # (Auto) Baso # (Auto) WBC Differential Differential Comment Sodium Potassium Chloride Carbon Dioxide Anion Gap BUN Creatinine Estimated GFR POC Glucose 85 170 H 100 Random Glucose Hemoglobin A1c Calcium Total Bilirubin AST ALT Alkaline Phosphatase C-Reactive Protein Total Protein Albumin Microbiology 02/13/18 10:49 Wound - Toe Gram Stain - Final 02/13/18 10:49 Wound - Toe Wound Culture - Preliminary Heavy growth normal skin connie at 24 hours Assessment and Plan - Assessment (1) Osteomyelitis of toe of right foot Code(s): M86.9 - Osteomyelitis, unspecified Status: Acute - Plan This is a 58 y/o CM with PMHx of COPD transferred from [place] for inpatient management of Osteomyelitis of the R second toe requiring vascular surgery recommendations prior to podiatric surgical interventions, HD#5 1. Osteomyelitis of the Right Foot Second Toe Foot XR 02/13: Bony destruction distal phalanx second toe most characteristic of osteomyelitis. Vancomycin/Zosyn stopped on 02/14 per ID. Per their recommendations hold antibiotics until bone bx/cx obtained in the OR unless patient develops symptoms of sepsis, appreciate assistance with management CRP 1.30 today from 1.50 ( 7.03 on 02/12) Wound Cx 02/13: No growth, final Blood cultures NG at 1 day x4 Podiatry consulted with plans for surgery today, cleared by Vascular for surgery Normal ROSALBA studies on 02/12 Cont. Dracut PRN EKG WNL this morning, patient medically cleared from our standpoint for surgery Per Podiatry on 02/14: OR on 02/15/18 Failed oral abx x 2 Xrays + for OM at the distal phalanx of the right 2nd digit. Consent for right 2nd digit amputation. All questions answered. Per ID 02/14: DC Zosyn IV DC Vanco IV Henrique Gay: NPO for amputation tomorrow at joint level causing disarticulation of joint. Will need to wait for Intra op bone biopsy and cultures to decide on antibiotic regimen. Unless patient grows an organism we can observe him off antibiotics. If change in clinical condition suggestive of sepsis ok to restart broad spectrum antibiotics. henrique Sierra hospitalist. Will follow on next if any change in interim please call sooner. No PICC till cleared by ID as hoping he can go home on oral antibiotics. 2. Diabetes Mellitus type II BS stable HgbA1c 5.4% Cont. Accu-Cheks with sliding scale insulin (holding home Metformin) 3. HTN Improved but still elevated, asymptomatic Not on home meds Increasing Norvasc to 10mg QD today Cont. Clonidine and Vasotec PRN 4. COPD/Tobacco Abuse Not on home O2 Encouraged cessation of smoking with risks involved Cont. Duonebs PRN 5. DVT PPX: SCD's 6. Dispo: Plan for surgery today. Monitor blood pressure. Follow-up ID and podiatry recommendations. Code Status: full Discussed Condition With: patient, RN
[2018-02-15 10:03] LABS: Baso % (Auto) 0.6 % (0.0-2.0); Eos # (Auto) 0.1 th/mm3 (0.0-0.4); Eos % (Auto) 2.3 % (0.0-4.0); Hematocrit 46.6 % (39.0-51.0); Hemoglobin 16.2 gm/dL (13.0-17.0); Lymph % (Auto) 22.1 % (9.0-44.0); Mean Corpuscular HGB Conc 34.8 % (32.0-36.0); Mean Corpuscular Hemoglobin 32.4 pg (27.0-34.0); Mean Corpuscular Volume 93.2 fL (80.0-100.0); Mean Platelet Volume 7.3 fL (7.0-11.0); Mono # (Auto) 0.4 th/mm3 (0.0-0.9); Mono % (Auto) 7.9 % (0.0-8.0); Neut # (Auto) 3.2 th/mm3 (1.8-7.7); Neut % (Auto) 67.1 % (16.0-70.0); Platelet Count 195 th/mm3 (150-450); Red Cell Distribution Width 13.4 % (11.6-17.2); White Blood Count 4.7 th/mm3 (4.0-11.0)
[2018-02-15 10:23] LABS: Anion Gap 6 meq/L (5-15); Aspartate Aminotransferase 30 U/L (15-37); Blood Urea Nitrogen 15 mg/dL (7-18); Calcium 8.6 mg/dL (8.5-10.1); Carbon Dioxide 29.4 meq/L (21.0-32.0); Chloride 103 meq/L (98-107); Glomerular Filtration Rate Greater Than 89 mL/min (>89); Glucose,Random 101 mg/dL (74-106); Potassium 4.2 meq/L (3.5-5.1); Sodium 138 meq/L (136-145)
[2018-02-15 10:24] LABS: Alanine Aminotransferase 30 U/L (12-78)
[2018-02-15 10:27] LABS: Alkaline Phosphatase 63 U/L (45-117); Total Protein 7.1 g/dL (6.4-8.2)
--- NOTE | 2018-02-15 13:36 | ECG ---
Date Performed: 02/14/2018 Time Performed: 19:16:20 PTAGE: 58 years EKG: ATRIAL FIBRILLATION WITH ABERRANT CONDUCTION OR VENTRICULAR PREMATURE COMPLEXES BORDERLINE LEFT AXIS DEVIATION ABNORMAL QRS-T ANGLE ABNORMAL ECG PREVIOUS TRACING : 01/22/2017 20.47 DOCTOR: Haseeb Lutz Interpretating Date/Time 02/15/2018 13:33:09
[2018-02-15] MEDS ORDERED: Lidocaine 1% Inj 50 ML Vial ONE (17:45)
[2018-02-15] MEDS ORDERED: Bupivacaine PF 0.5% Inj 30 ML Vial ONE (17:45)
[2018-02-15] MEDS ORDERED: Lidocaine PF 1% Inj 5 ML Syringe OTHER ONE (18:07)
[2018-02-15] MEDS ORDERED: Promethazine 25 MG Supp RECTAL PRN (18:42)
[2018-02-15] MEDS ORDERED: Bisacodyl 10 MG Supp RECTAL PRN (18:42)
[2018-02-15] MEDS ORDERED: Naloxone Inj 0.4 MG/ML Vial IV.PUSH PRN (18:42)
[2018-02-15] MEDS ORDERED: Misc Info for Pharmacy OTHER STA (18:42)
--- NOTE | 2018-02-15 18:42 | P.BOP ---
- Preoperative Diagnosis (1) Osteomyelitis of toe of right foot - Postoperative Diagnosis (1) Osteomyelitis of toe of right foot Date of procedure: 02/15/18 Anesthesia: GETA Surgeon: Aarti Wise DPM Estimated blood loss (mL): 0 Tourniquet time (min): 11 (Right ankle) Pathology: none sent Condition: stable Disposition: PACU
[2018-02-15] MEDS ORDERED: HYDROmorphone PF Inj 2 MG/ML Vial IV.PUSH PRN (19:00)
[2018-02-15] MEDS ORDERED: *morphine SULFATE 4 MG/ML PERIprocedure ONLY ONE (19:10)
--- NOTE | 2018-02-15 19:14 | XR ---
EXAM DATE: 02/15/2018 7:10 PM EDT AGE/SEX: 58 years / Male INDICATIONS: Amputation of the second digit right foot. CLINICAL DATA: This is the patient's subsequent encounter. Patient reports that signs and symptoms h ave been present for 3 days and indicates a pain score of 0/10. MEDICAL/SURGICAL HISTORY: Chronic obstructive pulmonary disease. Diabetes mellitus type II. Sl eep apnea. Appendectomy. COMPARISON: [facility], FOOT COMPLETE RIGHT 3V, 02/11/2018. . FINDINGS: There is interval amputation of the second toe. 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 No acute fr acture or dislocation. Prominent bone spurs posterior calcaneus. CONCLUSION: Amputation of the second toe. No acute fracture. Electronically signed by: Dae Jose MD 02/15/2018 7:12 PM EDT
[2018-02-15] MEDS: Senna/Docusate Sodium 8.6/50 MG Tablet PO SCH (20:46)
--- NOTE | 2018-02-15 21:48 | MP ---
cc: Aarti Wise [facility] DATE OF OPERATION: 02/15/2018 PREOPERATIVE DIAGNOSIS: Right second digit osteomyelitis. POSTOPERATIVE DIAGNOSIS: Right second digit osteomyelitis. PROCEDURE PERFORMED: Right second digit amputation of the foot. ANESTHESIOLOGIST: Naima River MD ANESTHESIA: General. HEMOSTASIS: Right ankle tourniquet at 250 mmHg for 11 minutes. ESTIMATED BLOOD LOSS: Less than 2 mL. MATERIALS: 3-0 nylon. INJECTABLES: A 1:1 mixture of 1% lidocaine plain along with 0.25% Marcaine plain, 10 mL in total. BRIEF HISTORY: The patient is a 58-year-old male with a longstanding history of right second digit osteomyelitis who has failed outpatient oral antibiotics x2 and has a chronic wound on there with multiple admissions for it. The risks, benefits, pros and cons were discussed. The patient fully consents to surgical intervention. No guarantees were given or implied. PROCEDURE IN DETAIL: The patient was brought into the operating room and placed on the operating table in the supine position. After general anesthesia was administered, the right foot was prepped, scrubbed and draped in usual sterile and aseptic manner. A timeout was called in which the correct site and identification were noted. Attention was then directed to the right second digit where a tennis racquet-type incision was carried out to excise the right second digit at the MP joint. The metatarsal head was solid. There is no grayish discoloration, healthy coloration. There was no purulence at the MP joint. A culture was taken at the MP joint as well and passed off the field for aerobic, anaerobic, Gram stain, culture and sensitivity. The disarticulated toe was then dissected down to the dorsal distal phalanx where a rongeur was used to take a bone biopsy and sent for culture for aerobic, anaerobic, Gram stain, culture and sensitivity of the distal phalanx of the right second digit of the foot. The digit was then sent for gross evaluation as well. The incision was copiously irrigated with normal sterile saline impregnated with . The incision site was then primarily closed with 3-0 nylon in a simple suture pattern. A postop block was given with 10 mL of a 1:1 mixture of 1% lidocaine plain along with 0.25% Marcaine plain. Dry sterile dressings were applied. The tourniquet was deflated after 11 minutes. The patient tolerated the procedure completion and transferred to the PACU for a brief period of postop monitoring, after which he will be transferred to the floor per PACU protocol. He will be followed closely while in house. JORDAN Laurent , 09:22 PM , 09:30 PM
[2018-02-16] MEDS: Sod Chloride 0.9% Inj 1,000 ML IV.CONT SCH ×3 (02:20→16:36)
[2018-02-16] MEDS: Insulin NovoLOG Aspart Correctional Sugar Inj SQ SCH ×4 (08:41→20:22)
[2018-02-16] MEDS: amLODIPine 5 MG Tablet PO SCH (08:42)
[2018-02-16] MEDS: Senna/Docusate Sodium 8.6/50 MG Tablet PO SCH ×2 (08:42→20:29)
[2018-02-16 09:11] LABS: Baso % (Auto) 0.7 % (0.0-2.0); Eos # (Auto) 0.1 th/mm3 (0.0-0.4); Hematocrit 46.1 % (39.0-51.0); Hemoglobin 16.2 gm/dL (13.0-17.0); Lymph # (Auto) 1.2 th/mm3 (1.0-4.8); Lymph % (Auto) 21.8 % (9.0-44.0); Mean Corpuscular HGB Conc 35.1 % (32.0-36.0); Mean Corpuscular Hemoglobin 32.5 pg (27.0-34.0); Mean Corpuscular Volume 92.8 fL (80.0-100.0); Mean Platelet Volume 7.2 fL (7.0-11.0); Mono # (Auto) 0.5 th/mm3 (0.0-0.9); Mono % (Auto) 8.9 % (0.0-8.0); Neut # (Auto) 3.5 th/mm3 (1.8-7.7); Neut % (Auto) 66.6 % (16.0-70.0); Platelet Count 186 th/mm3 (150-450); Red Blood Count 4.97 mil/mm3 (4.50-5.90); Red Cell Distribution Width 13.3 % (11.6-17.2); White Blood Count 5.3 th/mm3 (4.0-11.0)
[2018-02-16 09:40] LABS: Albumin 3.1 g/dL (3.4-5.0); Anion Gap 7 meq/L (5-15); Aspartate Aminotransferase 32 U/L (15-37); Blood Urea Nitrogen 11 mg/dL (7-18); Calcium 8.5 mg/dL (8.5-10.1); Carbon Dioxide 29.8 meq/L (21.0-32.0); Chloride 103 meq/L (98-107); Glomerular Filtration Rate Greater Than 89 mL/min (>89); Glucose,Random 84 mg/dL (74-106); Potassium 4.5 meq/L (3.5-5.1); Sodium 140 meq/L (136-145)
[2018-02-16 09:42] LABS: Alanine Aminotransferase 35 U/L (12-78)
[2018-02-16 09:45] LABS: Alkaline Phosphatase 64 U/L (45-117); Total Protein 6.9 g/dL (6.4-8.2)
--- NOTE | 2018-02-16 12:20 | P.PNIM ---
Subjective Interval history: Reports that his pain is controlled. He has been putting weight only on the heel. No other concerns at this time. Physical Exam Vital signs: Vital Signs 02/15/18 16:00 02/15/18 17:20 02/15/18 18:46 Temperature 98 F 98.4 F 97.7 F Pulse Rate 67 60 61 Respiratory Rate 18 16 14 Blood Pressure 148/95 H 126/81 133/86 Pulse Oximetry 98 97 97 02/15/18 19:00 02/15/18 19:15 02/15/18 19:30 Temperature 97.8 F Pulse Rate 61 91 H 64 Respiratory Rate 11 L 16 15 Blood Pressure 148/92 H 136/89 131/78 Pulse Oximetry 100 100 99 02/16/18 00:00 02/16/18 04:00 02/16/18 08:00 Temperature 97.1 F L 97.4 F L 97.9 F Pulse Rate 58 L 61 60 Respiratory Rate 20 20 16 Blood Pressure 107/64 136/78 137/99 H Pulse Oximetry 98 100 99 Intake & Output 02/15/18 02/16/18 02/16/18 18:59 06:59 18:59 Intake Total 2720 / 2720 1632 / 1632 Output Total 2505 / 2505 0 / 0 Balance 215 / 215 1632 / 1632 Intake: IV 1999 1000 / 1000 NS Inj 1,000 ML @ 100 mls/hr IV 1999 1000 / 1000 .CONT .Q10H [facility] Rx#:[id number] Oral 420 / 420 432 / 432 Anesthesia Amount 300 / 300 200 / 200 Output: Urine 2500 / 2500 0 / 0 Estimated Blood Loss 5 / 5 Other: # Voids 1 # Bowel Movements 1 Narrative: GENERAL: This is a well-nourished, well-developed patient, in no apparent distress. CARDIOVASCULAR: Regular rate and rhythm RESPIRATORY: Clear to auscultation. Breath sounds equal bilaterally. No wheezes , rales, or rhonchi. GASTROINTESTINAL: Abdomen soft, non-tender, nondistended. Normal active bowel sounds MUSCULOSKELETAL: Right foot bandage clean dry and intact NEURO: Alert & Oriented x4 to person, place, time, situation. Moves all ext x4 Results - Labs CBC & Chem 7: 02/16/18 08:26 02/16/18 08:26 Laboratory Results - last 24 hr 02/15/18 02/15/18 02/16/18 17:33 19:13 08:26 WBC 5.3 RBC 4.97 Hgb 16.2 Hct 46.1 MCV 92.8 MCH 32.5 MCHC 35.1 RDW 13.3 Plt Count 186 MPV 7.2 Neut % (Auto) 66.6 Lymph % (Auto) 21.8 [place] % (Auto) 8.9 H Eos % (Auto) 2.0 Baso % (Auto) 0.7 Neut # (Auto) 3.5 Lymph # (Auto) 1.2 [place] # (Auto) 0.5 Eos # (Auto) 0.1 Baso # (Auto) 0.0 WBC Differential . Differential Comment Auto diff final Sodium Potassium Chloride Carbon Dioxide Anion Gap BUN Creatinine Estimated GFR POC Glucose 86 80 Random Glucose Calcium Total Bilirubin AST ALT Alkaline Phosphatase Total Protein Albumin 02/16/18 02/16/18 08:26 08:39 WBC RBC Hgb Hct MCV MCH MCHC RDW Plt Count MPV Neut % (Auto) Lymph % (Auto) [place] % (Auto) Eos % (Auto) Baso % (Auto) Neut # (Auto) Lymph # (Auto) [place] # (Auto) Eos # (Auto) Baso # (Auto) WBC Differential Differential Comment Sodium 140 Potassium 4.5 Chloride 103 Carbon Dioxide 29.8 Anion Gap 7 BUN 11 Creatinine 0.67 Estimated GFR Greater than 89 POC Glucose 99 Random Glucose 84 Calcium 8.5 Total Bilirubin 0.5 AST 32 ALT 35 Alkaline Phosphatase 64 Total Protein 6.9 Albumin 3.1 L Microbiology 02/14/18 12:15 Blood - Peripheral Aerobic Blood Culture - Preliminary No growth in 2 days 02/14/18 12:15 Blood - Peripheral Anaerobic Blood Culture - Preliminary No growth in 2 days 02/14/18 12:10 Blood - Peripheral Aerobic Blood Culture - Preliminary No growth in 2 days 02/14/18 12:10 Blood - Peripheral Anaerobic Blood Culture - Preliminary No growth in 2 days 02/15/18 18:31 Wound - Toe Fungal Smear - Final No fungal elements seen 02/15/18 18:31 Wound - Toe Fungal Smear - Final No fungal elements seen 02/15/18 18:31 Wound - Toe Gram Stain - Final 02/15/18 18:31 Wound - Toe Gram Stain - Final 02/13/18 10:49 Wound - Toe Gram Stain - Final 02/13/18 10:49 Wound - Toe Wound Culture - Final Staphylococcus aureus - Imaging Impressions Foot X-Ray 02/15/18 00:00 CONCLUSION: Amputation of the second toe. No acute fracture. - Procedures 02/15right second toe amputation due to osteomyelitis of the second toe of the right foot with Dr. Wise Assessment and Plan - Assessment (1) Osteomyelitis of toe of right foot Code(s): M86.9 - Osteomyelitis, unspecified Status: Acute - Plan This is a 58 y/o CM with PMHx of COPD transferred from [place] for inpatient management of Osteomyelitis of the R second toe requiring vascular surgery recommendations prior to podiatric surgical interventions, 1. Osteomyelitis of the Right Foot Second Toe status post operative day #1 amputation of the right second toe Foot XR 02/13: Bony destruction distal phalanx second toe most characteristic of osteomyelitis. Vancomycin/Zosyn stopped on 02/14 per ID. Per their recommendations hold antibiotics until bone bx/cx obtained in the OR unless patient develops symptoms of sepsis, appreciate assistance with management Normal ROSALBA studies on 02/12 Dr. Redmond previously discussed with : Will need to wait for Intra op bone biopsy and cultures to decide on antibiotic regimen. Unless patient grows an organism we can observe him off antibiotics. If change in clinical condition suggestive of sepsis ok to restart broad spectrum antibiotics. No PICC till cleared by ID as hoping he can go home on oral antibiotics. Currently await biopsy and culture results and final clearance from podiatry. 2. Diabetes Mellitus type II, controlled BS stable HgbA1c 5.4% Cont. Accu-Cheks with sliding scale insulin (holding home Metformin) 3. HTN, controlled essential Improved but still elevated, asymptomatic Not on home meds previously Increasing Norvasc to 10mg QD today Cont. Clonidine and Vasotec PRN 4. COPD/Tobacco Abuse Not on home O2 Encouraged cessation of smoking with risks involved Cont. Duonebs PRN 5. DVT PPX: SCD's
--- NOTE | 2018-02-16 15:20 | ECG ---
Date Performed: 02/15/2018 Time Performed: 11:57:34 PTAGE: 58 years EKG: SINUS BRADYCARDIA POSSIBLE LEFT ATRIAL ENLARGEMENT INFERIOR MYOCARDIAL INFARCTION , PROBABL Y OLD When compared to previous tracing, sinus Braycardia has replaced Atrial fibrillation. ABNORMAL ECG PREVIOUS TRACING : 02/14/2018 19.16 DOCTOR: Mike Ramirez Interpretating Date/Time 02/16/2018 15:20:05
--- NOTE | 2018-02-16 15:43 | P.PNID ---
Subjective Remarks: is a 58 y/o CM with PMHx of DM unsure compliance status as has no PCP. He presents to the hospital with complains of right 2nd toe pain. He states that he has been having problems with his right foot second toe for quite some time now. The patient did come to the emergency department to [facility] on 11/24/17 for his toe. At that time he states that a piece of the tip of his toe came off on its own. Patient indicated that he got frustrated about the care he received in the emergency department, he was given a prescription for antibiotics but he did not take them. He went to [facility] and was evaluated there and he states that he was given 3 different antibiotics which he took, but he does not remember the names of the antibiotics. The patient states that his toe got progressively worse so he came to the emergency department again. During this admission a workup was done which did indicate osteomyelitis of the right foot second digit. Patient did have previous cultures taken back from November 2017 which did show Enterococcus faecalis infection. Patient does not have any signs of sepsis. He is afebrile, no leukocytosis. His ESR is normal but CRP is elevated. At the time of my evaluation patient is in on regular floor. visited the patient along with me. The 2nd right toe was definitely swollen but there was no obvious ulcer. There was a scab at the tip of the toe and the toe nail was blackening. Infectious Disease Consultation requested for evaluation and Mment of osteomyelitis of right 2nd toe. Overnight events reviewed No fevers No rash No diarrhea Path pending. Intra op cultures now showing staph aureus Preop cultures MSSA Off antibiotics and clinically stable. Sitting in bed. Antibiotics: None Lines: Lines ok Past Medical History: reviewed Allergies/Adverse Reactions: Allergies No Known Allergies Allergy (Verified 02/11/18 19:53) Objective Vital Signs 02/15/18 16:00 02/15/18 17:20 02/15/18 18:46 Temperature 98 F 98.4 F 97.7 F Pulse Rate 67 60 61 Respiratory Rate 18 16 14 Blood Pressure 148/95 H 126/81 133/86 Pulse Oximetry 98 97 97 02/15/18 19:00 02/15/18 19:15 02/15/18 19:30 Temperature 97.8 F Pulse Rate 61 91 H 64 Respiratory Rate 11 L 16 15 Blood Pressure 148/92 H 136/89 131/78 Pulse Oximetry 100 100 99 02/16/18 00:00 02/16/18 04:00 02/16/18 08:00 Temperature 97.1 F L 97.4 F L 97.9 F Pulse Rate 58 L 61 60 Respiratory Rate 20 20 16 Blood Pressure 107/64 136/78 137/99 H Pulse Oximetry 98 100 99 02/16/18 12:00 Temperature 98.3 F Pulse Rate 61 Respiratory Rate 17 Blood Pressure 117/75 Pulse Oximetry 96 Intake & Output 02/15/18 02/16/18 02/16/18 18:59 06:59 18:59 Intake Total 2720 / 2720 1632 / 1632 Output Total 2505 / 2505 0 / 0 Balance 215 / 215 1632 / 1632 Intake: IV 1999 1000 / 1000 NS Inj 1,000 ML @ 100 mls/hr IV 1999 1000 / 1000 .CONT .Q10H DEL Rx#:[id number] Oral 420 / 420 432 / 432 Anesthesia Amount 300 / 300 200 / 200 Output: Urine 2500 / 2500 0 / 0 Estimated Blood Loss 5 / 5 Other: # Voids 1 # Bowel Movements 1 02/15/18 18:31 Wound - Toe Gram Stain - Final 02/15/18 18:31 Wound - Toe Wound Culture - Preliminary gram positive cocci 02/15/18 18:31 Wound - Toe Gram Stain - Final 02/15/18 18:31 Wound - Toe Wound Culture - Preliminary gram positive cocci 02/14/18 12:15 Blood - Peripheral Aerobic Blood Culture - Preliminary No growth in 2 days 02/14/18 12:15 Blood - Peripheral Anaerobic Blood Culture - Preliminary No growth in 2 days 02/14/18 12:10 Blood - Peripheral Aerobic Blood Culture - Preliminary No growth in 2 days 02/14/18 12:10 Blood - Peripheral Anaerobic Blood Culture - Preliminary No growth in 2 days 02/15/18 18:31 Wound - Toe Fungal Smear - Final No fungal elements seen 02/15/18 18:31 Wound - Toe Fungal Culture - Pending 02/15/18 18:31 Wound - Toe Fungal Smear - Final No fungal elements seen 02/15/18 18:31 Wound - Toe Fungal Culture - Pending 02/13/18 10:49 Wound - Toe Gram Stain - Final 10/29/18 10:49 Wound - Toe Wound Culture - Final Staphylococcus aureus 02/15/18 18:31 Wound - Toe Acid Fast Bacilli Smear - Pending 02/15/18 18:31 Wound - Toe Mycobacterial Culture - Pending 02/15/18 18:31 Wound - Toe Acid Fast Bacilli Smear - Pending 02/15/18 18:31 Wound - Toe Mycobacterial Culture - Pending Lab - Hematology Results 02/15/18 02/16/18 09:18 08:26 WBC 4.7 5.3 RBC 5.00 4.97 Hgb 16.2 16.2 Hct 46.6 46.1 MCV 93.2 92.8 MCH 32.4 32.5 MCHC 34.8 35.1 RDW 13.4 13.3 Plt Count 195 186 MPV 7.3 7.2 Prelim Diff (Auto) Slide review pending Neut % (Auto) 67.1 66.6 Lymph % (Auto) 22.1 21.8 [place] % (Auto) 7.9 8.9 H Eos % (Auto) 2.3 2.0 Baso % (Auto) 0.6 0.7 Neut # (Auto) 3.2 3.5 Lymph # (Auto) 1.0 1.2 [place] # (Auto) 0.4 0.5 Eos # (Auto) 0.1 0.1 Baso # (Auto) 0.0 0.0 WBC Differential . . Diff Scan Auto diff confirmed Differential Comment . Auto diff final Lab - Chemistry Results 02/14/18 02/14/18 02/15/18 17:28 20:22 07:45 Sodium Potassium Chloride Carbon Dioxide Anion Gap BUN Creatinine Estimated GFR POC Glucose 85 170 H 100 Random Glucose Calcium Total Bilirubin AST ALT Alkaline Phosphatase C-Reactive Protein Total Protein Albumin 02/15/18 02/15/18 02/15/18 09:18 12:01 17:33 Sodium 138 Potassium 4.2 Chloride 103 Carbon Dioxide 29.4 Anion Gap 6 BUN 15 Creatinine 0.81 Estimated GFR Greater than 89 POC Glucose 108 86 Random Glucose 101 Calcium 8.6 Total Bilirubin 0.4 AST 30 ALT 30 Alkaline Phosphatase 63 C-Reactive Protein 1.30 H Total Protein 7.1 Albumin 3.0 L 02/15/18 02/16/18 02/16/18 19:13 08:26 08:39 Sodium 140 Potassium 4.5 Chloride 103 Carbon Dioxide 29.8 Anion Gap 7 BUN 11 Creatinine 0.67 Estimated GFR Greater than 89 POC Glucose 80 99 Random Glucose 84 Calcium 8.5 Total Bilirubin 0.5 AST 32 ALT 35 Alkaline Phosphatase 64 C-Reactive Protein Total Protein 6.9 Albumin 3.1 L Imaging: ITS Impressions Aorta w/Runoff CTA 02/12/18 00:00 CONCLUSION: 1. Mild stenosis at the common femoral arteries bilaterally. No hemodynamically significant stenosis identified on CTA runoff. 2 vessel runoff at the ankles. 2. Severe colonic diverticulosis without diverticulitis. 3. Previous bilateral hernia repair. 4. Bony destruction distal phalanx second toe most characteristic of osteomyelitis. Extremity Arterial Study 02/12/18 00:00 CONCLUSION: 1. Normal range ankle-brachial indices bilaterally. Foot X-Ray 02/15/18 00:00 CONCLUSION: Amputation of the second toe. No acute fracture. Physical Exam: GENERAL: Well-nourished well-developed, not in acute distress SKIN: Cool and dry, no generalized rash. Poorly kempt, soiled and dirty personal clothing. Hair and skin poorly kempt. HEAD: Atraumatic. Normocephalic. No temporal or scalp tenderness. EYES: Pupils equal round and reactive. Scleral icterus. No injection or drainage. No petechia ENT: Nothing abnormal detected NECK: Trachea midline. Supple, nontender, no meningeal signs. CARDIOVASCULAR: HS audible. RESPIRATORY: Clear to auscultation bilaterally. GASTROINTESTINAL: Abdomen soft nontender. MUSCULOSKELETAL: right foot in post op dressing. Wiggles toes and appear pink. NEUROLOGICAL: Alert oriented 3. Nonfocal. Psych cooperative IV line sites ok. Assessment and Plan - Plan Acute on chronic osteomyelitis of right 2nd toe. DM2 with uncontrolled hyperglycemia. Homelessness. Prior h/o non compliance with oral antibiotics x 2 ED visits. Recs: Start Ceftriaxone IV for now. Follow intraop pathology report to decide if IV antibiotics needed on discharge. Bone disjointed per [facility] podiatry and review of their notes. dw patient. No PICC till cleared by ID as hoping he can go home on oral antibiotics.
--- NOTE | 2018-02-16 22:16 | P.PNPOD ---
Subjective Interval history: Patient seen bedside. Resting comfortably. Denies any calf pain. Denies any N, V , F, Ch. Physical Exam Vital signs: Vital Signs 02/16/18 00:00 02/16/18 04:00 02/16/18 08:00 Temperature 97.1 F L 97.4 F L 97.9 F Pulse Rate 58 L 61 60 Respiratory Rate 20 20 16 Blood Pressure 107/64 136/78 137/99 H Pulse Oximetry 98 100 99 02/16/18 12:00 02/16/18 16:00 02/16/18 20:00 Temperature 98.3 F 98.5 F 97.4 F L Pulse Rate 61 75 68 Respiratory Rate 17 17 17 Blood Pressure 117/75 124/81 129/78 Pulse Oximetry 96 98 98 Intake & Output 02/16/18 02/16/18 02/17/18 06:59 18:59 06:59 Intake Total 1632 / 1632 2300 / 2300 Output Total 0 / 0 1160 / 1160 Balance 1632 / 1632 1140 / 1140 Intake: IV 1000 / 1000 1100 / 1100 NS Inj 1,000 ML @ 100 mls/hr IV 1000 / 1000 1000 / 1000 .CONT .Q10H DEL Rx#:[id number] Rocephin Inj 2,000 MG In NS Inj 100 / 100 100 ML @ 200 mls/hr IV.SIG Q24H DEL Rx#:[id number] Oral 432 / 432 1200 / 1200 Anesthesia Amount 200 / 200 Output: Urine 0 / 0 1160 / 1160 Other: # Voids 1 # Bowel Movements 0 Narrative: Dressing intact to right foot with no strikethrough present. [employer] under 3 secs to digits present. No pain on calf squeeze noted. Medications and Allergies Active Medications: Active Medications Hydrocodone Bitart/Acetaminophen ([place] 10/325) 1 tab PO Q6H PRN PRN Reason: PAIN SCALE 6 TO 10 Last Admin: 02/16/18 16:35 Dose: 1 tab Hydrocodone Bitart/Acetaminophen ([place] 5/325) 1 tab PO Q6H PRN PRN Reason: PAIN SCALE 1 TO 5 Hydrocodone Bitart/Acetaminophen ([place] 5/325) 1 tab PO Q4H PRN PRN Reason: PAIN SCALE 3 TO 5 Hydrocodone Bitart/Acetaminophen ([place] 7.5/325) 1 tab PO Q4H PRN PRN Reason: PAIN SCALE 6 TO 10 Al Hydroxide/Mg Hydroxide (Milk Of Magnesia Liq) 30 ml PO Q12H PRN PRN Reason: Mild Constipation Al Hydroxide/Mg Hydroxide (Milk Of Magnesia Liq) 30 ml PO Q12H PRN PRN Reason: Mild Constipation Albuterol (Duoneb Neb (Prn)) 1 ampul NEB Q2HR NEB PRN PRN Reason: SHORTNESS OF BREATH/WHEEZING Amlodipine Besylate (Norvasc) 10 mg PO DAILY [facility] Last Admin: 02/16/18 08:42 Dose: 10 mg Bisacodyl (Dulcolax Supp) 10 mg RECTAL DAILY PRN PRN Reason: SEVERE CONSITIPATION Bisacodyl (Dulcolax Supp) 10 mg RECTAL DAILY PRN PRN Reason: SEVERE CONSITIPATION Clonidine HCl (Catapres) 0.1 mg PO Q6H PRN PRN Reason: SBP>160, DBP >100 Dextrose (D50w Vial) 50 ml IV.PUSH UNSCH PRN PRN Reason: PER HYPOGLYCEMIA PROTOCOL Enalaprilat (Vasotec Inj) 1.25 mg IV.PUSH Q6H PRN PRN Reason: SBP>160, DBP>90 Last Admin: 02/15/18 08:54 Dose: 1.25 mg Flumazenil (Romazecon Inj) 0.2 mg IV.PUSH Q1M PRN PRN Reason: OVERSEDATION Glucagon (Glucagon Inj) 1 mg OTHER PRN PRN PRN Reason: for Hypoglycemia Protocol Haloperidol Lactate (Haldol Inj) 1 mg IV.PUSH Q15M PRN PRN Reason: for severe agitation Hydromorphone HCl (Dilaudid Pf Inj) 1 mg IV.PUSH Q3H PRN PRN Reason: BREAKTHROUGH PAIN Sodium Chloride (Ns Inj) 1,000 mls @ 100 mls/hr IV.CONT .Q10H DEL Last Admin: 02/16/18 16:36 Dose: 100 mls/hr Sodium Chloride (Ns Inj) 500 mls @ 30 mls/hr IV.SIG .Q10H DEL Ceftriaxone Sodium 2,000 mg/ (Sodium Chloride) 100 mls @ 200 mls/hr IV.SIG Q24H DEL Last Infusion: 02/16/18 17:10 Dose: Infused Insulin Aspart (Novolog Insulin Correctional Sugar Inj) 0 unit SQ ACHS [facility]; Protocol Last Admin: 02/16/18 20:22 Dose: Not Given Lactulose (Lactulose Liq) 30 ml PO DAILY PRN PRN Reason: SEVERE CONSITIPATION Lactulose (Lactulose Liq) 30 ml PO DAILY PRN PRN Reason: SEVERE CONSITIPATION Lorazepam (Ativan) 1 mg PO Q4H PRN PRN Reason: for CIWA 8-10 Lorazepam (Ativan Inj) 2 mg IV.PUSH Q2H PRN PRN Reason: for CIWA 11-14 Lorazepam (Ativan Inj) 2 mg IV.PUSH Q1H PRN PRN Reason: for CIWA 15-20 Lorazepam (Ativan Inj) 2 mg IV.PUSH Q15M PRN PRN Reason: for CIWA > 20 Lorazepam (Ativan Inj) 1 mg IV.PUSH Q4H PRN PRN Reason: for CIWA 8-10 Lorazepam (Ativan) 2 mg PO Q2H PRN PRN Reason: for CIWA 11-14 Naloxone HCl (Narcan Inj) 0.4 mg IV.PUSH UNSCH PRN PRN Reason: SEE LABEL COMMENTS Ondansetron HCl (Zofran Odt) 4 mg PO Q6H PRN PRN Reason: NAUSEA OR VOMITING Ondansetron HCl (Zofran Inj) 4 mg IV.PUSH Q6H PRN PRN Reason: NAUSEA OR VOMITING Promethazine HCl (Phenergan) 25 mg PO Q6H PRN PRN Reason: NAUSEA OR VOMITING Promethazine HCl (Phenergan Supp) 25 mg RECTAL Q6H PRN PRN Reason: NAUSEA OR VOMITING Senna/Docusate Sodium (Kami-Colace) 1 tab PO BID [facility] Last Admin: 02/16/18 20:29 Dose: 1 tab Sennosides (Senokot) 17.2 mg PO Q12H PRN PRN Reason: Moderate Constipation Sennosides (Senokot) 17.2 mg PO Q12H PRN PRN Reason: Moderate Constipation Sodium Chloride (Ns Flush) 2 ml IV.FLUSH BID [facility] Last Admin: 02/16/18 20:22 Dose: Not Given Sodium Chloride (Ns Flush) 2 ml IV.FLUSH PRN PRN PRN Reason: FLUSH AFTER USING IV ACCESS Allergies Allergy/AdvReac Type Severity Reaction Status Date / Time No Known Allergies Allergy Verified 02/11/18 19:53 Home Medications Medication Instructions Recorded Confirmed Type metformin 1,000 mg PO BID 11/24/17 02/11/18 History Results - Labs CBC & Chem 7: 02/16/18 08:26 02/16/18 08:26 Laboratory Results - last 24 hr 02/16/18 02/16/18 02/16/18 08:26 08:26 08:39 WBC 5.3 RBC 4.97 Hgb 16.2 Hct 46.1 MCV 92.8 MCH 32.5 MCHC 35.1 RDW 13.3 Plt Count 186 MPV 7.2 Neut % (Auto) 66.6 Lymph % (Auto) 21.8 [place] % (Auto) 8.9 H Eos % (Auto) 2.0 Baso % (Auto) 0.7 Neut # (Auto) 3.5 Lymph # (Auto) 1.2 [place] # (Auto) 0.5 Eos # (Auto) 0.1 Baso # (Auto) 0.0 WBC Differential . Differential Comment Auto diff final Sodium 140 Potassium 4.5 Chloride 103 Carbon Dioxide 29.8 Anion Gap 7 BUN 11 Creatinine 0.67 Estimated GFR Greater than 89 POC Glucose 99 Random Glucose 84 Calcium 8.5 Total Bilirubin 0.5 AST 32 ALT 35 Alkaline Phosphatase 64 Total Protein 6.9 Albumin 3.1 L 02/16/18 02/16/18 16:45 20:22 WBC RBC Hgb Hct MCV MCH MCHC RDW Plt Count MPV Neut % (Auto) Lymph % (Auto) [place] % (Auto) Eos % (Auto) Baso % (Auto) Neut # (Auto) Lymph # (Auto) [place] # (Auto) Eos # (Auto) Baso # (Auto) WBC Differential Differential Comment Sodium Potassium Chloride Carbon Dioxide Anion Gap BUN Creatinine Estimated GFR POC Glucose 180 H 101 Random Glucose Calcium Total Bilirubin AST ALT Alkaline Phosphatase Total Protein Albumin Microbiology 02/15/18 18:31 Wound - Toe Gram Stain - Final 02/15/18 18:31 Wound - Toe Wound Culture - Preliminary gram positive cocci 02/15/18 18:31 Wound - Toe Gram Stain - Final 02/15/18 18:31 Wound - Toe Wound Culture - Preliminary gram positive cocci 02/14/18 12:15 Blood - Peripheral Aerobic Blood Culture - Preliminary No growth in 2 days 02/14/18 12:15 Blood - Peripheral Anaerobic Blood Culture - Preliminary No growth in 2 days 02/14/18 12:10 Blood - Peripheral Aerobic Blood Culture - Preliminary No growth in 2 days 02/14/18 12:10 Blood - Peripheral Anaerobic Blood Culture - Preliminary No growth in 2 days 02/15/18 18:31 Wound - Toe Fungal Smear - Final No fungal elements seen 02/15/18 18:31 Wound - Toe Fungal Smear - Final No fungal elements seen 02/13/18 10:49 Wound - Toe Gram Stain - Final 02/13/18 10:49 Wound - Toe Wound Culture - Final Staphylococcus aureus - Procedures 02/15right second toe amputation due to osteomyelitis of the second toe of the right foot with Dr. Wise Assessment and Plan - Assessment (1) Osteomyelitis of toe of right foot Code(s): M86.9 - Osteomyelitis, unspecified Status: Acute - Plan 58 year old male s/p right second digit amputation Patient examined and evaluated with all questions answered Awaiting bone biopsy results ID recommendations on appropriate abx therapy for discharge Will change dressing tomorrow
[2018-02-17] MEDS: Sod Chloride 0.9% Inj 1,000 ML IV.CONT SCH ×3 (01:34→20:22)
[2018-02-17] MEDS: Insulin NovoLOG Aspart Correctional Sugar Inj SQ SCH ×4 (08:58→20:23)
[2018-02-17] MEDS: amLODIPine 5 MG Tablet PO SCH (08:59)
[2018-02-17] MEDS: Senna/Docusate Sodium 8.6/50 MG Tablet PO SCH ×2 (08:59→20:58)
--- NOTE | 2018-02-17 11:20 | P.PNIM ---
Subjective Interval history: Patient doing well with no complaints other than foot pain. Tolerating diet with no nausea or vomiting. Physical Exam Vital signs: Vital Signs 02/16/18 12:00 02/16/18 16:00 02/16/18 20:00 Temperature 98.3 F 98.5 F 97.4 F L Pulse Rate 61 75 68 Respiratory Rate 17 17 17 Blood Pressure 117/75 124/81 129/78 Pulse Oximetry 96 98 98 02/16/18 23:58 02/17/18 04:00 02/17/18 08:00 Temperature 98.1 F 97.9 F 97.2 F L Pulse Rate 64 70 54 L Respiratory Rate 15 15 16 Blood Pressure 138/84 122/92 H 126/70 Pulse Oximetry 95 95 94 L Intake & Output 02/16/18 02/17/18 02/17/18 18:59 06:59 18:59 Intake Total 2300 / 2300 1240 / 1240 Output Total 1160 / 1160 1700 / 1700 Balance 1140 / 1140 -460 / -460 Weight 99.4 kg Intake: IV 1100 / 1100 1000 / 1000 NS Inj 1,000 ML @ 100 mls/hr IV 1000 / 1000 1000 / 1000 .CONT .Q10H DEL Rx#:[id number] Rocephin Inj 2,000 MG In NS Inj 100 / 100 100 ML @ 200 mls/hr IV.SIG Q24H DEL Rx#:[id number] Oral 1200 / 1200 240 / 240 Output: Urine 1160 / 1160 1700 / 1700 Other: # Bowel Movements 0 Narrative: GENERAL: This is a well-nourished, well-developed patient, in no apparent distress. CARDIOVASCULAR: Regular rate and rhythm RESPIRATORY: Clear to auscultation. Breath sounds equal bilaterally. No wheezes , rales, or rhonchi. GASTROINTESTINAL: Abdomen soft, non-tender, nondistended. Normal active bowel sounds MUSCULOSKELETAL: Right foot bandage clean dry and intact NEURO: Alert & Oriented x4 to person, place, time, situation. Moves all ext x4 Results - Labs CBC & Chem 7: 02/16/18 08:26 02/16/18 08:26 Laboratory Results - last 24 hr 02/16/18 02/16/18 02/17/18 16:45 20:22 07:44 POC Glucose 180 H 101 143 H Microbiology 02/14/18 12:15 Blood - Peripheral Aerobic Blood Culture - Preliminary No growth in 3 days 02/14/18 12:15 Blood - Peripheral Anaerobic Blood Culture - Preliminary No growth in 3 days 02/14/18 12:10 Blood - Peripheral Aerobic Blood Culture - Preliminary No growth in 3 days 02/14/18 12:10 Blood - Peripheral Anaerobic Blood Culture - Preliminary No growth in 3 days 02/15/18 18:31 Wound - Toe Acid Fast Bacilli Smear - Final No acid fast bacilli seen 02/15/18 18:31 Wound - Toe Acid Fast Bacilli Smear - Final No acid fast bacilli seen 02/15/18 18:31 Wound - Toe Gram Stain - Final 02/15/18 18:31 Wound - Toe Wound Culture - Preliminary gram positive cocci 02/15/18 18:31 Wound - Toe Gram Stain - Final 02/15/18 18:31 Wound - Toe Wound Culture - Preliminary gram positive cocci 02/15/18 18:31 Wound - Toe Fungal Smear - Final No fungal elements seen 02/15/18 18:31 Wound - Toe Fungal Smear - Final No fungal elements seen 02/13/18 10:49 Wound - Toe Gram Stain - Final 02/13/18 10:49 Wound - Toe Wound Culture - Final Staphylococcus aureus - Procedures 02/15right second toe amputation due to osteomyelitis of the second toe of the right foot with Dr. Wise Assessment and Plan - Assessment (1) Osteomyelitis of toe of right foot Code(s): M86.9 - Osteomyelitis, unspecified Status: Acute - Plan This is a 58 y/o CM with PMHx of COPD transferred from [place] for inpatient management of Osteomyelitis of the R second toe requiring vascular surgery recommendations prior to podiatric surgical interventions, 1. Osteomyelitis of the Right Foot Second Toe status post operative day #2 amputation of the right second toe Foot XR 02/13: Bony destruction distal phalanx second toe most characteristic of osteomyelitis. Vancomycin/Zosyn stopped on 02/14 per ID. Per their recommendations restart ceftriaxone until bone biopsy and culture obtained in the OR unless patient develops symptoms of sepsis, appreciate assistance with management Normal ROSALBA studies on 02/12 Dr. Redmond previously discussed with : Will need to wait for Intra op bone biopsy and cultures to decide on antibiotic regimen. No PICC till cleared by ID as hoping he can go home on oral antibiotics. Currently await biopsy and culture results and final clearance from podiatry and infectious disease 2. Diabetes Mellitus type II, controlled BS stable HgbA1c 5.4% Cont. Accu-Cheks with sliding scale insulin (holding home Metformin) 3. HTN, controlled essential Improved but still elevated, asymptomatic Not on home meds previously Increasing Norvasc to 10mg QD today Cont. Clonidine and Vasotec PRN 4. COPD/Tobacco Abuse Not on home O2 Encouraged cessation of smoking with risks involved Cont. Duonebs PRN 5. DVT PPX: SCD's Discharge Planning: Await final biopsy and culture results to determine if patient will need oral antibiotics versus IV antibiotics. Await final clearance from ID and podiatry.
--- NOTE | 2018-02-17 15:01 | P.PNID ---
Infectious Disease Brief Note Vital Signs - 24 hr 02/16/18 16:00 02/16/18 20:00 02/16/18 23:58 Temperature 98.5 F 97.4 F L 98.1 F Pulse Rate 75 68 64 Respiratory Rate 17 17 15 Blood Pressure 124/81 129/78 138/84 Pulse Oximetry 98 98 95 02/17/18 04:00 02/17/18 08:00 02/17/18 12:00 Temperature 97.9 F 97.2 F L 97.8 F Pulse Rate 70 54 L 62 Respiratory Rate 15 16 18 Blood Pressure 122/92 H 126/70 136/87 Pulse Oximetry 95 94 L 97 Laboratory Results - last 24 hr 02/16/18 02/16/18 02/17/18 16:45 20:22 07:44 POC Glucose 180 H 101 143 H 02/17/18 11:37 POC Glucose 110 dw : Path pending. If results available before weekend please call me for discharge orders. If results not available continue antibiotics in house. Will see patient next on tuesday. Please call if any new issues over the weekend.
--- NOTE | 2018-02-17 16:52 | P.PNPOD ---
Subjective Interval history: Patient seen bedside, resting comfortably. Reports pain to right foot and therefore has not been weightbearing on the right foot. Denies any nausea vomiting fevers or chills. Denies any calf pain to right lower extremity. Physical Exam Vital signs: Vital Signs 02/16/18 20:00 02/16/18 23:58 02/17/18 04:00 Temperature 97.4 F L 98.1 F 97.9 F Pulse Rate 68 64 70 Respiratory Rate 17 15 15 Blood Pressure 129/78 138/84 122/92 H Pulse Oximetry 98 95 95 02/17/18 08:00 02/17/18 12:00 Temperature 97.2 F L 97.8 F Pulse Rate 54 L 62 Respiratory Rate 16 18 Blood Pressure 126/70 136/87 Pulse Oximetry 94 L 97 Intake & Output 02/16/18 02/17/18 02/17/18 18:59 06:59 18:59 Intake Total 2300 / 2300 1240 / 1240 1000 / 1000 Output Total 1160 / 1160 1700 / 1700 Balance 1140 / 1140 -460 / -460 1000 / 1000 Weight 99.4 kg Intake: IV 1100 / 1100 1000 / 1000 1000 / 1000 NS Inj 1,000 ML @ 100 mls/hr IV 1000 / 1000 1000 / 1000 1000 / 1000 .CONT .Q10H DEL Rx#:[id number] Rocephin Inj 2,000 MG In NS Inj 100 / 100 100 ML @ 200 mls/hr IV.SIG Q24H DEL Rx#:[id number] Oral 1200 / 1200 240 / 240 Output: Urine 1160 / 1160 1700 / 1700 Other: # Bowel Movements 0 Narrative: Sutures intact with skin well coapted to right second interspace. No drainage noted. No surrounding erythema to incision line. No pain on calf squeeze of right lower extremity. Edema noted to right lower extremity. Medications and Allergies Active Medications: Active Medications Hydrocodone Bitart/Acetaminophen ([place] 10/325) 1 tab PO Q6H PRN PRN Reason: PAIN SCALE 6 TO 10 Last Admin: 02/17/18 11:34 Dose: 1 tab Hydrocodone Bitart/Acetaminophen ([place] 5/325) 1 tab PO Q6H PRN PRN Reason: PAIN SCALE 1 TO 5 Hydrocodone Bitart/Acetaminophen ([place] 5/325) 1 tab PO Q4H PRN PRN Reason: PAIN SCALE 3 TO 5 Hydrocodone Bitart/Acetaminophen ([place] 7.5/325) 1 tab PO Q4H PRN PRN Reason: PAIN SCALE 6 TO 10 Al Hydroxide/Mg Hydroxide (Milk Of Magnesia Liq) 30 ml PO Q12H PRN PRN Reason: Mild Constipation Al Hydroxide/Mg Hydroxide (Milk Of Magnesia Liq) 30 ml PO Q12H PRN PRN Reason: Mild Constipation Albuterol (Duoneb Neb (Prn)) 1 ampul NEB Q2HR NEB PRN PRN Reason: SHORTNESS OF BREATH/WHEEZING Amlodipine Besylate (Norvasc) 10 mg PO DAILY [facility] Last Admin: 02/17/18 08:59 Dose: 10 mg Bisacodyl (Dulcolax Supp) 10 mg RECTAL DAILY PRN PRN Reason: SEVERE CONSITIPATION Bisacodyl (Dulcolax Supp) 10 mg RECTAL DAILY PRN PRN Reason: SEVERE CONSITIPATION Clonidine HCl (Catapres) 0.1 mg PO Q6H PRN PRN Reason: SBP>160, DBP >100 Dextrose (D50w Vial) 50 ml IV.PUSH UNSCH PRN PRN Reason: PER HYPOGLYCEMIA PROTOCOL Enalaprilat (Vasotec Inj) 1.25 mg IV.PUSH Q6H PRN PRN Reason: SBP>160, DBP>90 Last Admin: 02/15/18 08:54 Dose: 1.25 mg Flumazenil (Romazecon Inj) 0.2 mg IV.PUSH Q1M PRN PRN Reason: OVERSEDATION Glucagon (Glucagon Inj) 1 mg OTHER PRN PRN PRN Reason: for Hypoglycemia Protocol Haloperidol Lactate (Haldol Inj) 1 mg IV.PUSH Q15M PRN PRN Reason: for severe agitation Hydromorphone HCl (Dilaudid Pf Inj) 1 mg IV.PUSH Q3H PRN PRN Reason: BREAKTHROUGH PAIN Sodium Chloride (Ns Inj) 1,000 mls @ 100 mls/hr IV.CONT .Q10H [facility] Last Admin: 02/17/18 11:58 Dose: 100 mls/hr Sodium Chloride (Ns Inj) 500 mls @ 30 mls/hr IV.SIG .Q10H DEL Ceftriaxone Sodium 2,000 mg/ (Sodium Chloride) 100 mls @ 200 mls/hr IV.SIG Q24H [facility] Last Infusion: 02/16/18 17:10 Dose: Infused Insulin Aspart (Novolog Insulin Correctional Sugar Inj) 0 unit SQ ACHS [facility]; Protocol Last Admin: 02/17/18 12:00 Dose: Not Given Lactulose (Lactulose Liq) 30 ml PO DAILY PRN PRN Reason: SEVERE CONSITIPATION Lactulose (Lactulose Liq) 30 ml PO DAILY PRN PRN Reason: SEVERE CONSITIPATION Lorazepam (Ativan) 1 mg PO Q4H PRN PRN Reason: for CIWA 8-10 Lorazepam (Ativan Inj) 2 mg IV.PUSH Q2H PRN PRN Reason: for CIWA 11-14 Lorazepam (Ativan Inj) 2 mg IV.PUSH Q1H PRN PRN Reason: for CIWA 15-20 Lorazepam (Ativan Inj) 2 mg IV.PUSH Q15M PRN PRN Reason: for CIWA > 20 Lorazepam (Ativan Inj) 1 mg IV.PUSH Q4H PRN PRN Reason: for CIWA 8-10 Lorazepam (Ativan) 2 mg PO Q2H PRN PRN Reason: for CIWA 11-14 Naloxone HCl (Narcan Inj) 0.4 mg IV.PUSH UNSCH PRN PRN Reason: SEE LABEL COMMENTS Ondansetron HCl (Zofran Odt) 4 mg PO Q6H PRN PRN Reason: NAUSEA OR VOMITING Ondansetron HCl (Zofran Inj) 4 mg IV.PUSH Q6H PRN PRN Reason: NAUSEA OR VOMITING Promethazine HCl (Phenergan) 25 mg PO Q6H PRN PRN Reason: NAUSEA OR VOMITING Promethazine HCl (Phenergan Supp) 25 mg RECTAL Q6H PRN PRN Reason: NAUSEA OR VOMITING Senna/Docusate Sodium (Kami-Colace) 1 tab PO BID [facility] Last Admin: 02/17/18 08:59 Dose: 1 tab Sennosides (Senokot) 17.2 mg PO Q12H PRN PRN Reason: Moderate Constipation Sennosides (Senokot) 17.2 mg PO Q12H PRN PRN Reason: Moderate Constipation Sodium Chloride (Ns Flush) 2 ml IV.FLUSH BID [facility] Last Admin: 02/17/18 08:58 Dose: Not Given Sodium Chloride (Ns Flush) 2 ml IV.FLUSH PRN PRN PRN Reason: FLUSH AFTER USING IV ACCESS Allergies Allergy/AdvReac Type Severity Reaction Status Date / Time No Known Allergies Allergy Verified 02/11/18 19:53 Home Medications Medication Instructions Recorded Confirmed Type metformin 1,000 mg PO BID 11/24/17 02/11/18 History Results - Labs CBC & Chem 7: 02/16/18 08:26 02/16/18 08:26 Laboratory Results - last 24 hr 02/16/18 02/17/18 02/17/18 20:22 07:44 11:37 POC Glucose 101 143 H 110 Microbiology 02/15/18 18:31 Wound - Toe Gram Stain - Final 02/15/18 18:31 Wound - Toe Wound Culture - Final Staphylococcus aureus 02/15/18 18:31 Wound - Toe Gram Stain - Final 02/15/18 18:31 Wound - Toe Wound Culture - Final Staphylococcus aureus 02/14/18 12:15 Blood - Peripheral Aerobic Blood Culture - Preliminary No growth in 3 days 02/14/18 12:15 Blood - Peripheral Anaerobic Blood Culture - Preliminary No growth in 3 days 02/14/18 12:10 Blood - Peripheral Aerobic Blood Culture - Preliminary No growth in 3 days 02/14/18 12:10 Blood - Peripheral Anaerobic Blood Culture - Preliminary No growth in 3 days 02/15/18 18:31 Wound - Toe Acid Fast Bacilli Smear - Final No acid fast bacilli seen 02/15/18 18:31 Wound - Toe Acid Fast Bacilli Smear - Final No acid fast bacilli seen - Procedures 02/15right second toe amputation due to osteomyelitis of the second toe of the right foot with Dr. Wise Assessment and Plan - Assessment (1) Osteomyelitis of toe of right foot Code(s): M86.9 - Osteomyelitis, unspecified Status: Acute Plan: 58-year-old male status post right second digit amputation postop day 2 date of surgery 02/15 Patient examined and evaluated with all questions answered Okay to discharge per podiatry Dressing change to right foot with Xeroform, 4 x 4's, Mike, and Jonathan Discussed heel weightbearing in surgical shoe with patient He is to follow-up with Dr. Wise in office within 1 week of discharge Pathology report reviewed proximal margin clear of any osteomyelitis ID recommendations of oral antibiotics for patient - Plan 58 year old male s/p right second digit amputation Patient examined and evaluated with all questions answered Awaiting bone biopsy results ID recommendations on appropriate abx therapy for discharge Will change dressing tomorrow
[2018-02-18] MEDS: Sod Chloride 0.9% Inj 1,000 ML IV.CONT SCH ×4 (00:54→22:39)
[2018-02-18] MEDS: Insulin NovoLOG Aspart Correctional Sugar Inj SQ SCH ×4 (07:44→20:49)
[2018-02-18] MEDS: Senna/Docusate Sodium 8.6/50 MG Tablet PO SCH ×2 (09:11→21:03)
[2018-02-18] MEDS: amLODIPine 5 MG Tablet PO SCH (09:12)
--- NOTE | 2018-02-18 16:34 | P.PNIM ---
Subjective Interval history: 58-year-old male status post amputation of right second toe postop day #3. He still has some pain in that toe but is otherwise improving and able to hobble over to the bathroom. He is tolerating his diet well. Physical Exam Vital signs: Vital Signs 02/17/18 20:00 02/18/18 00:00 02/18/18 04:00 Temperature 98.8 F 98 F 97.8 F Pulse Rate 62 68 70 Respiratory Rate 17 14 15 Blood Pressure 142/93 H 136/82 132/89 Pulse Oximetry 98 95 98 02/18/18 12:00 Temperature 98.4 F Pulse Rate 58 L Respiratory Rate 18 Blood Pressure 127/96 H Pulse Oximetry 99 Intake & Output 02/17/18 02/18/18 02/18/18 18:59 06:59 18:59 Intake Total 1717 / 1717 2142 / 2142 438 / 438 Output Total 1200 / 1200 1850 / 1850 500 / 500 Balance 517 / 517 292 / 292 -62 / -62 Weight 102.5 kg Intake: IV 1000 / 1000 1662 / 1662 438 / 438 NS Inj 1,000 ML @ 100 mls/hr IV 1000 / 1000 1562 / 1562 438 / 438 .CONT .Q10H DEL Rx#:[id number] Rocephin Inj 2,000 MG In NS Inj 100 / 100 100 ML @ 200 mls/hr IV.SIG Q24H DEL Rx#:[id number] Oral 717 / 717 480 / 480 Output: Urine 1200 / 1200 1850 / 1850 500 / 500 Narrative: GENERAL: AAOx3, no acute distress SKIN: Warm and dry. No rashes, right foot with bandage over second toe stump HEAD: Atruamtic, normocephalic. EYES: No scleral icterus. No injection or drainage. ENT: Moist mucous membranes, patent nares, no erythema of oropharynx. NECK: Supple, trachea midline. No JVD or lymphadenopathy. Normal thyroid. CARDIOVASCULAR: Regular rate and rhythm. No murmurs, gallops, or rubs. RESPIRATORY: Breath sounds clear equal bilaterally. No crackles or wheezes. No accessory muscle use. GASTROINTESTINAL: Abdomen soft, non-tender, nondistended, normal active bowel sounds MUSCULOSKELETAL: No cyanosis, or edema. NEURO: CN II-XII grossly intact, no focal deficits, no slurring of speech Results - Labs CBC & Chem 7: 02/16/18 08:26 02/16/18 08:26 Laboratory Results - last 24 hr 02/17/18 02/17/18 02/18/18 17:19 20:10 07:39 POC Glucose 135 H 112 H 114 H 02/18/18 12:16 POC Glucose 100 Microbiology 02/14/18 12:15 Blood - Peripheral Aerobic Blood Culture - Preliminary No growth in 4 days 02/14/18 12:15 Blood - Peripheral Anaerobic Blood Culture - Preliminary No growth in 4 days 02/14/18 12:10 Blood - Peripheral Aerobic Blood Culture - Preliminary No growth in 4 days 02/14/18 12:10 Blood - Peripheral Anaerobic Blood Culture - Preliminary No growth in 4 days 02/15/18 18:31 Wound - Toe Gram Stain - Final 02/15/18 18:31 Wound - Toe Wound Culture - Final Staphylococcus aureus 02/15/18 18:31 Wound - Toe Gram Stain - Final 02/15/18 18:31 Wound - Toe Wound Culture - Final Staphylococcus aureus - Procedures 02/15right second toe amputation due to osteomyelitis of the second toe of the right foot with Dr. Wise Assessment and Plan - Assessment (1) Osteomyelitis of toe of right foot Code(s): M86.9 - Osteomyelitis, unspecified Status: Acute - Plan This is a 58 y/o CM with PMHx of COPD transferred from [place] for inpatient management of Osteomyelitis of the R second toe requiring vascular surgery recommendations prior to podiatric surgical interventions, Osteomyelitis of the Right Foot Second Toe s/p amputation of right second toe 02/15/2018 Foot XR 02/13: Bony destruction distal phalanx second toe most characteristic of osteomyelitis. Vancomycin/Zosyn stopped on 02/14 per ID. ID recommends ceftriaxone until bone biopsy and culture obtained in the OR unless patient develops symptoms of sepsis Biopsy results will be needed to determine selection of oral versus IV antibiotics Normal ROSALBA studies on 02/12 Appreciate infectious disease consult Diabetes Mellitus type II, controlled BS stable, HgbA1c 5.4% Cont. Accu-Cheks with sliding scale insulin HTN, controlled essential Improved but still elevated, asymptomatic Continue Norvasc to 10mg QD today Continue clonidine and Vasotec PRN COPD/Tobacco Abuse Not on home O2 Encouraged cessation of smoking with risks involved Continue Duonebs PRN DVT prophylaxis SCDs, encourage ambulation Discharge Planning: Final biopsy will determine oral versus IV antibiotics, ID clearance after that. Podiatry clearance pending Patient is self-pay and will need to be able to ambulate and have a reasonable care plan prior to discharge
[2018-02-19] MEDS: Sod Chloride 0.9% Inj 1,000 ML IV.CONT SCH ×2 (07:40→21:55)
[2018-02-19] MEDS: Insulin NovoLOG Aspart Correctional Sugar Inj SQ SCH ×4 (07:54→21:56)
[2018-02-19] MEDS: amLODIPine 5 MG Tablet PO SCH (09:30)
[2018-02-19] MEDS: Senna/Docusate Sodium 8.6/50 MG Tablet PO SCH ×2 (09:30→21:55)
--- NOTE | 2018-02-19 14:52 | P.PNIM ---
Subjective Interval history: Patient states he is feeling well, is coming to terms with not drinking alcohol anymore, has a possible place to live with an ex-girlfriend. He is asking how soon he might go home. I explained he needs p.o. options for antibiotics prior to discharge. Physical Exam Vital signs: Vital Signs 02/18/18 16:00 02/18/18 20:00 02/19/18 00:00 Temperature 98.5 F 98.1 F 97.9 F Pulse Rate 63 69 63 Respiratory Rate 18 18 18 Blood Pressure 138/96 H 145/89 H 110/85 Pulse Oximetry 98 93 L 96 02/19/18 04:00 02/19/18 08:00 Temperature 97.4 F L 97.4 F L Pulse Rate 54 L 63 Respiratory Rate 18 20 Blood Pressure 113/80 151/105 H Pulse Oximetry 96 98 Intake & Output 02/18/18 02/19/18 02/19/18 19:59 06:59 18:59 Intake Total 1000 / 1000 Output Total Balance 1000 / 1000 Weight Intake: IV 1000 / 1000 NS Inj 1,000 ML @ 100 mls/hr IV 1000 / 1000 .CONT .Q10H DEL Rx#:[id number] Rocephin Inj 2,000 MG In NS Inj 100 ML @ 200 mls/hr IV.SIG Q24H DEL Rx#:[id number] Oral Output: Urine Other: # Voids # Bowel Movements Narrative: GENERAL: AAOx3, no acute distress SKIN: Warm and dry. No rashes, right foot with bandage over second toe stump HEAD: Atruamtic, normocephalic. EYES: No scleral icterus. No injection or drainage. ENT: Moist mucous membranes, patent nares, no erythema of oropharynx. NECK: Supple, trachea midline. No JVD or lymphadenopathy. Normal thyroid. CARDIOVASCULAR: Regular rate and rhythm. No murmurs, gallops, or rubs. RESPIRATORY: Breath sounds clear equal bilaterally. No crackles or wheezes. No accessory muscle use. GASTROINTESTINAL: Abdomen soft, non-tender, nondistended, normal active bowel sounds MUSCULOSKELETAL: No cyanosis, or edema. NEURO: CN II-XII grossly intact, no focal deficits, no slurring of speech Results - Labs CBC & Chem 7: 02/16/18 08:26 02/16/18 08:26 Laboratory Results - last 24 hr 11/03/18 11/03/18 11/04/18 17:31 20:48 07:43 POC Glucose 100 106 93 02/19/18 12:50 POC Glucose 92 Microbiology 02/14/18 12:15 Blood - Peripheral Aerobic Blood Culture - Final No growth in 5 days 02/14/18 12:15 Blood - Peripheral Anaerobic Blood Culture - Final No growth in 5 days 02/14/18 12:10 Blood - Peripheral Aerobic Blood Culture - Final No growth in 5 days 02/14/18 12:10 Blood - Peripheral Anaerobic Blood Culture - Final No growth in 5 days - Procedures 02/15right second toe amputation due to osteomyelitis of the second toe of the right foot with Dr. Wise Assessment and Plan - Assessment (1) Osteomyelitis of toe of right foot Code(s): M86.9 - Osteomyelitis, unspecified Status: Acute - Plan This is a 58 y/o CM with PMHx of COPD transferred from [place] for inpatient management of Osteomyelitis of the R second toe requiring vascular surgery recommendations prior to podiatric surgical interventions, Osteomyelitis of the Right Foot Second Toe s/p amputation of right second toe 02/15/2018 Foot XR 02/13: Bony destruction distal phalanx second toe most characteristic of osteomyelitis. Vancomycin/Zosyn stopped on 02/14 per ID. ID recommends ceftriaxone until bone biopsy and culture obtained in the OR unless patient develops symptoms of sepsis Biopsy results will be needed to determine selection of oral versus IV antibiotics Normal ROSALBA studies on 02/12 Appreciate infectious disease consult Diabetes Mellitus type II, controlled BS stable, HgbA1c 5.4% Cont. Accu-Cheks with sliding scale insulin HTN, controlled essential Improved but still elevated, asymptomatic Continue Norvasc to 10mg QD today Continue clonidine and Vasotec PRN COPD/Tobacco Abuse Not on home O2 Encouraged cessation of smoking with risks involved Continue Duonebs PRN DVT prophylaxis SCDs, encourage ambulation Discharge Planning: Final biopsy will determine oral versus IV antibiotics, ID clearance after that. Podiatry clearance pending Patient is self-pay and will need to be able to ambulate and have a reasonable care plan prior to discharge Patient is working with PT and Orth O she was requested
[2018-02-20] MEDS: Sod Chloride 0.9% Inj 1,000 ML IV.CONT SCH (05:43)
[2018-02-20] MEDS: Senna/Docusate Sodium 8.6/50 MG Tablet PO SCH (09:20)
[2018-02-20] MEDS: Insulin NovoLOG Aspart Correctional Sugar Inj SQ SCH ×2 (09:21→14:13)
[2018-02-20] MEDS: amLODIPine 5 MG Tablet PO SCH (14:13)
--- NOTE | 2018-02-20 15:17 | P.DS ---
Date of admission: 02/11/18 21:26 Primary care physician: No Primary Care Physician Brief History from admission: 58-year-old male with known history of diabetes who presented to hospital because of toe pain. Patient states that he has been having problems with his right foot second toe for quite some time now. He does not have a primary medical doctor. The patient did come to the emergency department to [place] on 11/24/17 for his toe. At that time he states that a piece of the tip of his toe came off on its own. Patient indicated that he got frustrated about the care he received in the emergency department, he was given a prescription for antibiotics but he did not take them. He went to [facility] and was evaluated there and he states that he was given 3 different antibiotics in which he took, he does not remember the names of the antibiotics. The patient states that his toe got progressively worse so he came to the emergency department again. Workup was done which did indicate osteomyelitis of the right foot second digit. Patient did have previous cultures taken back from November which did show Enterococcus faecalis infection. Currently the patient does not have any stomach findings. Patient does not have any signs of sepsis. He is afebrile, no leukocytosis. DS: Diagnosis - Discharge Diagnosis (1) Osteomyelitis of toe of right foot Status: Acute DS: Medications - Discharge Medications Prescriptions: amlodipine [Norvasc] 5 mg PO DAILY 30 Days #30 tab cephalexin 500 mg PO BID 10 Days #20 tab hydrocodone-acetaminophen 1 tab PO Q6H PRN #12 tab PRN Reason: Acute Pain metformin 1,000 mg PO BID #60 tab DS: Summary Hospital Course: 58-year-old male who presented with right second toe osteomyelitis had a surgical amputation of his right second toe on 02/16/2018. Cultures grew out MSSA, patient was initially in pain but has become ambulatory with an orthosis shoe. He is ambulating the halls with a walker. Lab work was reviewed with infectious disease and we agreed that he would be safe to go home on p.o. cephalexin for the next 10 days. He has a follow-up arranged with Dr. Wise in the next 4-7 days. Patient was previously semi-homeless but will be staying in a home with a previous partner. He intends to quit drinking alcohol altogether and feels no signs of withdrawal at this point of his stay. He understands that for any signs of worsening or return of infection he should return to the ER immediately. - Time Spent with Patient Total time spent providing and/or coordinating discharge services: Less than 30 minutes - Quality: VTE Deep Vein Thrombosis/Pulmonary Embolism Present on Admission: No Exam Vital signs: Vital Signs 02/19/18 16:00 02/19/18 20:00 02/20/18 00:00 Temperature 97.8 F 97.8 F Pulse Rate 65 60 68 Respiratory Rate 20 20 20 Blood Pressure 120/75 130/81 121/85 Pulse Oximetry 96 98 98 02/20/18 04:00 02/20/18 08:00 02/20/18 12:00 Temperature 98.0 F 97.7 F Pulse Rate 68 78 87 Respiratory Rate 20 18 18 Blood Pressure 116/80 97/78 L 100/75 Pulse Oximetry 97 95 93 L Intake & Output 02/19/18 02/20/18 02/20/18 18:59 06:59 18:59 Intake Total 2340 / 2340 280 / 280 600 / 600 Balance 2340 / 2340 280 / 280 600 / 600 Weight 103.3 kg Intake: IV 2100 / 2100 600 / 600 NS Inj 1,000 ML @ 100 mls/hr IV 2000 / 2000 600 / 600 .CONT .Q10H DEL Rx#:[id number] Rocephin Inj 2,000 MG In NS Inj 100 / 100 100 ML @ 200 mls/hr IV.SIG Q24H DEL Rx#:[id number] Oral 240 / 240 280 / 280 Other: # Voids 4 2 # Bowel Movements 1 Results Procedures completed during hospitalization: 02/15rig second toe amputation due to osteomyelitis of the second toe of the right foot with Dr. Wise Completed studies during hospitalization: Pending at discharge 02/15/18 07:57 Surgical [PTH] Routine Labs on day of discharge: Labs from last 24 hours 02/20/18 02/20/18 02/19/18 11:22 08:06 19:43 POC Glucose 121 H 101 152 H 02/19/18 16:46 POC Glucose 121 H - Impressions ITS Impressions Aorta w/Runoff CTA 02/12/18 00:00 CONCLUSION: 1. Mild stenosis at the common femoral arteries bilaterally. No hemodynamically significant stenosis identified on CTA runoff. 2 vessel runoff at the ankles. 2. Severe colonic diverticulosis without diverticulitis. 3. Previous bilateral hernia repair. 4. Bony destruction distal phalanx second toe most characteristic of osteomyelitis. Extremity Arterial Study 02/12/18 00:00 CONCLUSION: 1. Normal range ankle-brachial indices bilaterally. Foot X-Ray 02/15/18 00:00 CONCLUSION: Amputation of the second toe. No acute fracture. Discharge Plan - Discharge Disposition Patient Disposition: Discharge Home - Discharge Condition Condition: Good - Discharge Order Discharge Orders: Discharge Order (Routine); Ordered 02/20/18 Ordered By: Elliot Nuñez Podiatry Clear for Discharge (Routine); Ordered 02/17/18 Ordered By: Nayely Machado Vascular Surgery Clear for Discharge (Routine); Ordered 02/14/18 Ordered By: Leydi Couch - Physicians Team Primary Care Provider: Primary Care Dipika Barr Attending Provider: Elliot Nuñez Other Providers: Ariane Nicolas DPM ; Broderick Dominguez MD ; Regina Pizarro MD
--- NOTE | 2018-02-20 15:30 | P.PNID ---
Subjective Remarks: is a 58 y/o CM with PMHx of DM unsure compliance status as has no PCP. He presents to the hospital with complains of right 2nd toe pain. He states that he has been having problems with his right foot second toe for quite some time now. The patient did come to the emergency department to [place] on 11/24/17 for his toe. At that time he states that a piece of the tip of his toe came off on its own. Patient indicated that he got frustrated about the care he received in the emergency department, he was given a prescription for antibiotics but he did not take them. He went to [facility] and was evaluated there and he states that he was given 3 different antibiotics which he took, but he does not remember the names of the antibiotics. The patient states that his toe got progressively worse so he came to the emergency department again. During this admission a workup was done which did indicate osteomyelitis of the right foot second digit. Patient did have previous cultures taken back from November 2017 which did show Enterococcus faecalis infection. Patient does not have any signs of sepsis. He is afebrile, no leukocytosis. His ESR is normal but CRP is elevated. At the time of my evaluation patient is in on regular floor. visited the patient along with me. The 2nd right toe was definitely swollen but there was no obvious ulcer. There was a scab at the tip of the toe and the toe nail was blackening. Infectious Disease Consultation requested for evaluation and Mment of osteomyelitis of right 2nd toe. Delayed entry patient seen at 3 pm. Overnight events reviewed No fevers No rash No diarrhea Path pending. Intra op cultures now showing staph aureus Intraop cultures MSSA Off antibiotics and clinically stable. Sitting in bed. Antibiotics: None Lines: Lines ok Past Medical History: reviewed Allergies/Adverse Reactions: Allergies No Known Allergies Allergy (Verified 02/11/18 19:53) Objective Vital Signs 02/19/18 16:00 02/19/18 20:00 02/20/18 00:00 Temperature 97.8 F 97.8 F Pulse Rate 65 60 68 Respiratory Rate 20 20 20 Blood Pressure 120/75 130/81 121/85 Pulse Oximetry 96 98 98 02/20/18 04:00 02/20/18 08:00 02/20/18 12:00 Temperature 98.0 F 97.7 F Pulse Rate 68 78 87 Respiratory Rate 20 18 18 Blood Pressure 116/80 97/78 L 100/75 Pulse Oximetry 97 95 93 L Intake & Output 02/19/18 02/20/18 02/20/18 18:59 06:59 18:59 Intake Total 2340 / 2340 280 / 280 600 / 600 Balance 2340 / 2340 280 / 280 600 / 600 Weight 103.3 kg Intake: IV 2100 / 2100 600 / 600 NS Inj 1,000 ML @ 100 mls/hr IV 2000 / 2000 600 / 600 .CONT .Q10H DEL Rx#:[id number] Rocephin Inj 2,000 MG In NS Inj 100 / 100 100 ML @ 200 mls/hr IV.SIG Q24H DEL Rx#:[id number] Oral 240 / 240 280 / 280 Other: # Voids 4 2 # Bowel Movements 1 02/14/18 12:15 Blood - Peripheral Aerobic Blood Culture - Final No growth in 5 days 02/14/18 12:15 Blood - Peripheral Anaerobic Blood Culture - Final No growth in 5 days 02/14/18 12:10 Blood - Peripheral Aerobic Blood Culture - Final No growth in 5 days 02/14/18 12:10 Blood - Peripheral Anaerobic Blood Culture - Final No growth in 5 days 02/15/18 18:31 Wound - Toe Gram Stain - Final 02/15/18 18:31 Wound - Toe Wound Culture - Final Staphylococcus aureus 02/15/18 18:31 Wound - Toe Gram Stain - Final 02/15/18 18:31 Wound - Toe Wound Culture - Final Staphylococcus aureus Lab - Chemistry Results 02/18/18 02/18/18 02/19/18 17:31 20:48 07:43 POC Glucose 100 106 93 02/19/18 02/19/18 02/19/18 12:50 16:46 19:43 POC Glucose 92 121 H 152 H 02/20/18 02/20/18 08:06 11:22 POC Glucose 101 121 H Imaging: ITS Impressions Aorta w/Runoff CTA 02/12/18 00:00 CONCLUSION: 1. Mild stenosis at the common femoral arteries bilaterally. No hemodynamically significant stenosis identified on CTA runoff. 2 vessel runoff at the ankles. 2. Severe colonic diverticulosis without diverticulitis. 3. Previous bilateral hernia repair. 4. Bony destruction distal phalanx second toe most characteristic of osteomyelitis. Extremity Arterial Study 02/12/18 00:00 CONCLUSION: 1. Normal range ankle-brachial indices bilaterally. Foot X-Ray 02/15/18 00:00 CONCLUSION: Amputation of the second toe. No acute fracture. Physical Exam: GENERAL: Well-nourished well-developed, not in acute distress SKIN: Cool and dry, no generalized rash. Poorly kempt, soiled and dirty personal clothing. Hair and skin poorly kempt. HEAD: Atraumatic. Normocephalic. No temporal or scalp tenderness. EYES: Pupils equal round and reactive. Scleral icterus. No injection or drainage. No petechia ENT: Nothing abnormal detected NECK: Trachea midline. Supple, nontender, no meningeal signs. CARDIOVASCULAR: HS audible. RESPIRATORY: Clear to auscultation bilaterally. GASTROINTESTINAL: Abdomen soft nontender. MUSCULOSKELETAL: right foot in post op dressing. Wiggles toes and appear pink. NEUROLOGICAL: Alert oriented 3. Nonfocal. Psych cooperative IV line sites ok. Assessment and Plan - Plan Acute on chronic osteomyelitis of right 2nd toe. DM2 with uncontrolled hyperglycemia. Homelessness. Prior h/o non compliance with oral antibiotics x 2 ED visits. Recs: DC Ceftriaxone IV for now. Dc home on oral keflex for 10 more days. Intra op path clear margins. dw : follow up needed with podiatry,assistance with meds and dressing material etc. Will sign off please call back if any change in clinical condition or questions.
== END 2018-02-20 17:04 | disposition home or self-care (01) ==
LOC: PHED 19:44 → PHEDA 21:26 → PH3 22:44 → N04 02-13 17:50
PROVIDERS: ADMIT Family Medicine; ATTEND Family Medicine